=== PATIENT | male | born 1940 | race Caucasian/White ===

== ENCOUNTER 2016-11-28 20:51 | Inpatient (IN) | payer OTHER, MEDICARE ==
[~2016-11-28] VITALS: Ht 185.4 cm; Wt 81.4 kg
[~2016-11-28 20:51] MED LIST: ACETCAP PO; ADVA250A INH; ATOR20TA PO; DILT120C43 PO; DILT240C36 PO; METF500 PO; PRIL20CA PO; RIVA20 PO
[2016-11-28 20:56] VITALS: BP 138/76; PULSE 139; RESP 24; TEMP 97.7; O2SAT 91
[2016-11-28 21:54] VITALS: PULSE 118; RESP 22; O2SAT 96
[2016-11-28] MEDS ORDERED: SODIUM CHLORIDE 0.9% FLUSH 10 ML FLUSH IVF PRN (22:15)
[2016-11-28] MEDS ORDERED: methylPREDNISolone SOD SUCC 125 MG/2 ML VIAL IV PUSH ONE (22:15)
[2016-11-28] MEDS ORDERED: SODIUM CHLOR 0.9% 1000 ML INJ 1,000 ML IV ONE (22:15)
--- NOTE | 2016-11-28 22:23 | PD ---
HPI Chief Complaint: Respiratory Symptoms Time Seen by Provider: 22:04 Travel History International Travel<30 days: No Contact w/Intl Traveler<30days: No Traveled to known affect area: No History of Present Illness HPI Patient is a 76 year old male with history of atrial fibrillation, COPD, hx of esophageal cancer; presents to the ER with c/o of SOB. Patient reports that he has been feeling sob for the past 3-4 weeks. He see his control engineer last week , Dr. Milton Fajardo and was started on a course of steroids as well as Azithromycin. Patient reports that the steroids did help initially but since being off the steroids, he has been sob. Patient reports no fever/chills. Reports no chest pain but pain through his chest wall from coughing so much. Reports that when he coughs, he brings up thick white sputum. PFSH Past Medical History Cancer: Yes (TONSIL) Cardiovascular Problems: Yes (ATRIAL FIB) High Cholesterol: Yes COPD: Yes Diabetes: Yes (PRE DIABETIC) Endocrine: Yes GERD: Yes Gout: Yes Genitourinary: No Hepatitis: No Hiatal Hernia: No Immune Disorder: No Musculoskeletal: Yes (LOWER BACK) Neurologic: No Psychiatric: No Reproductive: No Respiratory: Yes (COPD, SCARRING IN LUNGS) Past Surgical History Abdominal Surgery: No AICD: No Body Medical Devices: LEFT HIP PIN Cardiac Surgery: No Ear Surgery: No Endocrine Surgery: No Eye Surgery: No Genitourinary Surgery: No Gynecologic Surgery: No Joint Replacement: No Oral Surgery: No Pacemaker: No Thoracic Surgery: No Social History Alcohol Use: Yes (5-6 OZ OF RUM AND COKE-DAILY AND 2-3 BEERS DAILY ) Tobacco Use: No (QUIT 30 YRS AGO , SMOKED 4 PPD FOR 25+YRS) Substance Use: No Allergies-Medications (Allergen,Severity, Reaction): Coded Allergies: Sulfa (Sulfonamide Antibiotics) (Unverified Allergy, Severe, Anaphylaxis, 11/28/16) Reported Meds & Prescriptions Reported Meds & Active Scripts Active Xarelto 20 Mg Tab (Rivaroxaban) 20 Mg Tab 20 Mg PO DAILY 30 Days Reported Xarelto (Rivaroxaban) 20 Mg Tab 20 Mg PO DAILY Prilosec (Omeprazole Magnesium) 20 Mg Tab DAILY Advair Diskus Inh (Fluticasone-Salmeterol Inh) 250-50 Mcg/Blist Aer 1 Puff INH BID Rinse mouth after use. Diltiazem CD 24 HR 240 Mg Caper 240 Mg PO AC BREAKFAST Diltiazem (Diltiazem HCl) 120 Mg Tab 120 Mg PO HS Dilt-Xr 120 mg (Diltiazem HCl) 120 Mg Cap 120 Mg PO HS Glucophage 500 mg (Metformin HCl) 500 Mg Tab 500 Mg PO HS Dilt-Xr 240 mg (Diltiazem HCl) 240 Mg Cap 240 Mg PO DAILY AM Atorvastatin 20 mg tab (Atorvastatin Calcium) 20 Mg Tab 20 Mg PO HS Advair Diskus 250/50 (Salmeterol Xinafoate/Fluticasone) 250 Mcg/50 Mcg Inhp 1 Puff INH BID Prilosec 20 mg (Omeprazole) 20 Mg Cap 20 Mg PO DAILY Review of Systems General / Constitutional: No: Fever, Chills Eyes: No: Visual changes HENT: No: Headaches Cardiovascular: No: Chest Pain or Discomfort Respiratory: Positive: Cough, Shortness of Breath, Wheezing Gastrointestinal: No: Abdominal Pain Genitourinary: No: Dysuria Musculoskeletal: No: Pain Skin: No Rash Neurologic: No: Weakness Psychiatric: No: Depression Endocrine: No: Polydipsia Hematologic/Lymphatic: No: Easy Bruising Physical Exam Narrative GENERAL: moderate distress SKIN: Focused skin assessment warm/dry. HEAD: Atraumatic. Normocephalic. EYES: Pupils equal and round. No scleral icterus. No injection or drainage. ENT: No nasal bleeding or discharge. Mucous membranes pink and moist. NECK: Trachea midline. No JVD. CARDIOVASCULAR: Tachycardia , No murmur appreciated. RESPIRATORY: increased accessory muscle use. Decreased breath sounds b/l. GASTROINTESTINAL: Abdomen soft, non-tender, nondistended. Hepatic and splenic margins not palpable. MUSCULOSKELETAL: No obvious deformities. No clubbing. No cyanosis. No edema. NEUROLOGICAL: Awake and alert. Normal speech. PSYCHIATRIC: Appropriate mood and affect; insight and judgment normal. Data Data Last Documented VS Vital Signs Date Time Temp Pulse Resp B/P (MAP) Pulse Ox O2 Delivery O2 Flow Rate FiO2 11/28/16 21:54 118 22 96 11/28/16 20:56 97.7 138/76 (96) Room Air Orders Orders Complete Blood Count With Diff (11/28/16 22:09) Comprehensive Metabolic Panel (11/28/16 22:09) B-Type Natriuretic Peptide (11/28/16 22:09) Act Partial Throm Time (Ptt) (11/28/16 22:09) Prothrombin Time / Inr (Pt) (11/28/16 22:09) Magnesium (Mg) (11/28/16 22:09) Ckmb (Isoenzyme) Profile (11/28/16 22:09) Troponin I (11/28/16 22:09) Urinalysis - C+S If Indicated (11/28/16 22:09) Influenzae A/B Antigen (11/28/16 22:09) Blood Culture (11/28/16 22:) Iv Access Insert/Monitor (11/28/16 22:09) Electrocardiogram (11/28/16:) Ecg Monitoring (11/28/16:) Oximetry (11/28/16:) Oxygen Administration (11/28/16 22:) Chest, Single Ap (11/28/16 22:09) Sodium Chloride 0.9% Flush (Ns Flush) (11/28/16 22:15) Methylprednisolone So Succ Inj (Solumedr (11/28/16 22:15) Albuterol-Ipratropium Neb (Duoneb Neb) (11/28/16 22:15) Lactic Acid Sepsis Protocol (11/28/16 22:09) Sodium Chlor 0.9% 1000 Ml Inj (Ns 1000 M (11/28/16 22:15) CKMB (11/28/16 22:45) CKMB% (11/28/16 22:45) Ceftriaxone Inj (Rocephin Inj) (11/28/16 23:30) Azithromycin Inj (Zithromax Inj) (11/28/16 23:30) Admit Order (Ed Use Only) (11/29/16 00:00) Labs Laboratory Tests Test 11/28/16 22:45 11/28/16 23:05 White Blood Count 17.6 TH/MM3 Red Blood Count 4.59 MIL/MM3 Hemoglobin 14.5 GM/DL Hematocrit 44.0 % Mean Corpuscular Volume 95.8 FL Mean Corpuscular Hemoglobin 31.5 PG Mean Corpuscular Hemoglobin Concent 32.9 % Red Cell Distribution Width 14.4 % Platelet Count 480 TH/MM3 Mean Platelet Volume 7.9 FL Neutrophils (%) (Auto) 86.8 % Lymphocytes (%) (Auto) 3.0 % Monocytes (%) (Auto) 10.2 % Eosinophils (%) (Auto) 0.0 % Basophils (%) (Auto) 0.0 % Neutrophils # (Auto) 15.3 TH/MM3 Lymphocytes # (Auto) 0.5 TH/MM3 Monocytes # (Auto) 1.8 TH/MM3 Eosinophils # (Auto) 0.0 TH/MM3 Basophils # (Auto) 0.0 TH/MM3 CBC Comment DIFF FINAL Differential Comment Prothrombin Time 13.0 SEC Prothromb Time International Ratio 1.2 RATIO Activated Partial Thromboplast Time 35.5 SEC Blood Urea Nitrogen 20 MG/DL Creatinine 0.85 MG/DL Random Glucose 136 MG/DL Total Protein 8.1 GM/DL Albumin 3.3 GM/DL Calcium Level 8.8 MG/DL Magnesium Level 1.6 MG/DL Alkaline Phosphatase 99 U/L Aspartate Amino Transf (AST/SGOT) 149 U/L Alanine Aminotransferase (ALT/SGPT) 286 U/L Total Bilirubin 0.3 MG/DL Sodium Level 137 MEQ/L Potassium Level 4.4 MEQ/L Chloride Level 102 MEQ/L Carbon Dioxide Level 28.5 MEQ/L Anion Gap 7 MEQ/L Estimat Glomerular Filtration Rate 88 ML/MIN Lactic Acid Level 1.7 mmol/L Total Creatine Kinase 258 U/L Creatine Kinase MB 11.3 NG/ML Troponin I LESS THAN 0.02 NG/ML B-Type Natriuretic Peptide 191 PG/ML MDM Medical Decision Making Medical Screen Exam Complete: Yes Emergency Medical Condition: Yes Medical Record Reviewed: Yes Interpretation(s) Vital Signs Date Time Temp Pulse Resp B/P (MAP) Pulse Ox O2 Delivery O2 Flow Rate FiO2 11/28/16 21:54 118 22 96 11/28/16 20:56 97.7 139 24 138/76 (96) 91 Room Air Differential Diagnosis Pneumonia, COPD exacerbation, viral syndrome, electrolyte abnormality,afib with rvr, acs, arrhythmia Narrative Course 76 year old male who presents to the ER for evaluation of cough/congestion with increased wheezing for the past 3-4 weeks. He has seen Dr. Fajardo in the office and was given a course of antibiotics as well as a course of steroids with no relief of symptoms. Patient tachycardic with increased RR. Patient was placed on a equipment monitor phototypesetting , IV was established. IV steroids as well as neb treatments ordered. Xray of chest ordered. Labs including lactate and blood cultures ordered. Vital Signs Date Time Temp Pulse Resp B/P (MAP) Pulse Ox O2 Delivery O2 Flow Rate FiO2 11/28/16 21:54 118 22 96 11/28/16 20:56 97.7 139 24 138/76 (96) 91 Room Air Laboratory Tests Test 11/28/16 22:45 11/28/16 23:05 White Blood Count 17.6 TH/MM3 (4.0-11.0) Red Blood Count 4.59 MIL/MM3 (4.50-5.90) Hemoglobin 14.5 GM/DL (13.0-17.0) Hematocrit 44.0 % (39.0-51.0) Mean Corpuscular Volume 95.8 FL (80.0-100.0) Mean Corpuscular Hemoglobin 31.5 PG (27.0-34.0) Mean Corpuscular Hemoglobin Concent 32.9 % (32.0-36.0) Red Cell Distribution Width 14.4 % (11.6-17.2) Platelet Count 480 TH/MM3 (150-450) Mean Platelet Volume 7.9 FL (7.0-11.0) Neutrophils (%) (Auto) 86.8 % (16.0-70.0) Lymphocytes (%) (Auto) 3.0 % (9.0-44.0) Monocytes (%) (Auto) 10.2 % (0.0-8.0) Eosinophils (%) (Auto) 0.0 % (0.0-4.0) Basophils (%) (Auto) 0.0 % (0.0-2.0) Neutrophils # (Auto) 15.3 TH/MM3 (1.8-7.7) Lymphocytes # (Auto) 0.5 TH/MM3 (1.0-4.8) Monocytes # (Auto) 1.8 TH/MM3 (0-0.9) Eosinophils # (Auto) 0.0 TH/MM3 (0-0.4) Basophils # (Auto) 0.0 TH/MM3 (0-0.2) CBC Comment DIFF FINAL Differential Comment Prothrombin Time 13.0 SEC (9.8-11.6) Prothromb Time International Ratio 1.2 RATIO Activated Partial Thromboplast Time 35.5 SEC (24.3-30.1) Blood Urea Nitrogen 20 MG/DL (7-18) Creatinine 0.85 MG/DL (0.60-1.30) Random Glucose 136 MG/DL (74-106) Total Protein 8.1 GM/DL (6.4-8.2) Albumin 3.3 GM/DL (3.4-5.0) Calcium Level 8.8 MG/DL (8.5-10.1) Magnesium Level 1.6 MG/DL (1.5-2.5) Alkaline Phosphatase 99 U/L (45-117) Aspartate Amino Transf (AST/SGOT) 149 U/L (15-37) Alanine Aminotransferase (ALT/SGPT) 286 U/L (12-78) Total Bilirubin 0.3 MG/DL (0.2-1.0) Sodium Level 137 MEQ/L (136-145) Potassium Level 4.4 MEQ/L (3.5-5.1) Chloride Level 102 MEQ/L (98-107) Carbon Dioxide Level 28.5 MEQ/L (21.0-32.0) Anion Gap 7 MEQ/L (5-15) Estimat Glomerular Filtration Rate 88 ML/MIN (>89) Lactic Acid Level 1.7 mmol/L (0.4-2.0) Total Creatine Kinase 258 U/L (39-308) Creatine Kinase MB 11.3 NG/ML (0.5-3.6) Troponin I LESS THAN 0.02 NG/ML B-Type Natriuretic Peptide 191 PG/ML (0-100) Last Impressions Chest X-Ray 11/28/16 9690 Signed Impressions: Service Date/Time: Monday, November 28, 2016 23:16 - CONCLUSION: Chronic parenchymal changes bilaterally with superimposed atelectasis and/or infiltrate left lower lobe. Rachele Solis MD Patient with LLL infiltrate - failed outpatient treatment. Patient with sepsis criteria, he has been pancultured. Patient will be admitted to the hospital Case reviewed with Dr. Lux who accepts pt to service Sepsis Criteria SIRS Criteria (2 or more): Heart rate over 90, RR > 20 or PaCO2 < 32, WBC > 99668, < 4000 or > 10% bands Criteria Outcome: Meets SIRS criteria, Meets sepsis criteria Diagnosis Primary Impression: Sepsis Additional Impression: Pneumonia Admitting Information Admitting Physician Requests: Admit Jessy Carbajal DO Nov 28, 2016 22:23
[2016-11-28] MEDS ORDERED: PRIL20TA2 (22:25)
[2016-11-28] MEDS ORDERED: DILT-64 PO (22:25)
[2016-11-28] MEDS ORDERED: XARE20TA PO (22:25)
[2016-11-28] MEDS ORDERED: DILT120T PO (22:25)
[2016-11-28] MEDS ORDERED: ADVA250A INH (22:25)
--- NOTE | 2016-11-28 22:34 | RADRPT ---
EXAM DATE/TIME: 11/28/2016 23:16 [facility] COMPARISON: CHEST SINGLE AP, April 28, 2013, 15:46. INDICATIONS : Short of breath. MEDICAL HISTORY : Chronic obstructive pulmonary disease. SURGICAL HISTORY : None. ENCOUNTER: Initial ACUITY: 1 day PAIN SCORE: 0/10 LOCATION: Bilateral chest FINDINGS: Moderate cardiomegaly is present. There are parenchymal changes in the right lung which have the appe arance of coarse interstitial process not changed since 2013. Parenchymal changes are present in the left lung most of it is chronic, however superimposed atelectasis and/or infiltrate is also suspected . There are pleural plaque calcifications adjacent to the left hemidiaphragm. CONCLUSION: Chronic parenchymal changes bilaterally with superimposed atelectasis and/or infiltrate left lower lo be. K. Cain Solis MD on November 28, 2016 at 22:32 Board Certified Radiologist. This report was verified electronically.
[2016-11-28] MEDS: RESP: ALBUTEROL 2.5 MG/IPRATROPIUM 0.5 MG NEB (SCH) INH (22:47)
[2016-11-28 23:05] LABS: AUTOMATED NEUTROPHIL # 15.3 TH/MM3 (1.8-7.7); HEMO FLAGS DIFF FINAL; LYMPHOCYTE # 0.5 TH/MM3 (1.0-4.8); MEAN CELL VOLUME 95.8 FL (80.0-100.0); MEAN CORPUSCULAR HEMOGLOBIN 31.5 PG (27.0-34.0); MEAN CORPUSCULAR HGB CONC 32.9 % (32.0-36.0); MONO % 10.2 % (0.0-8.0); NEUT % 86.8 % (16.0-70.0); PLATELET COUNT 480 TH/MM3 (150-450); RED BLOOD COUNT 4.59 MIL/MM3 (4.50-5.90); RED CELL DISTRIBUTION WIDTH 14.4 % (11.6-17.2); WHITE BLOOD COUNT 17.6 TH/MM3 (4.0-11.0)
[2016-11-28 23:13] LABS: APTT (PATIENT) 35.5 SEC (24.3-30.1); INTERNATIONAL NORMALIZED RATIO 1.2 RATIO
[2016-11-28 23:19] LABS: ALT (GPT) 286 U/L (12-78); ANION GAP 7 MEQ/L (5-15); AST (GOT) 149 U/L (15-37); BICARBONATE 28.5 MEQ/L (21.0-32.0); BLOOD UREA NITROGEN 20 MG/DL (7-18); CHLORIDE 102 MEQ/L (98-107); GLOMERULAR FILTRATION RATE 88 ML/MIN (>89); MAGNESIUM 1.6 MG/DL (1.5-2.5); POTASSIUM 4.4 MEQ/L (3.5-5.1); SODIUM (NA) 137 MEQ/L (136-145)
[2016-11-28 23:23] LABS: ALKALINE PHOSPHATASE 99 U/L (45-117); CREATINE KINASE 258 U/L (39-308); TOTAL BILIRUBIN ADULT 0.3 MG/DL (0.2-1.0)
[2016-11-28] MEDS ORDERED: cefTRIAXone INJ 1,000 MG in SODIUM CHLORIDE 0.9% INJ 100 ML IV ONE (23:30)
[2016-11-28] MEDS ORDERED: AZITHROMYCIN INJ 500 MG in SODIUM CHLOR 0.9% 250 ML INJ 250 ML IV ONE (23:30)
[2016-11-28 23:36] LABS: CKMB 11.3 NG/ML (0.5-3.6)
[2016-11-29] VITALS (11 sets, daily range): BP systolic 102–120; BP diastolic 66–84; PULSE 87–112; RESP 17–18; TEMP 97.1–98.9; O2SAT 92–97
[2016-11-29] MEDS ORDERED: NALOXONE HCL 0.4 MG/ML AMP IV PUSH PRN
[2016-11-29] MEDS ORDERED: SODIUM CHLORIDE 0.9% FLUSH 10 ML FLUSH IV FLUSH PRN
[2016-11-29] MEDS ORDERED: RESP: ALBUTEROL 2.5 MG/IPRATROPIUM 0.5 MG NEB (PRN) NEB
[2016-11-29 00:40] LABS: BLOOD, URINE NEG (NEG); COMMENT (UR) CULT NOT INDICATED; CULTURE IF INDICATED CULT NOT INDICATED; GLUCOSE,URINE NEG (NEG); KETONE, URINE NEG (NEG); MUCUS URINE FEW /lpf (OCC); NITRITE,URINE NEG (NEG); URINE COLOR YELLOW (YELLW/STRAW)
[2016-11-29] MEDS: RESP: ALBUTEROL 2.5 MG/IPRATROPIUM 0.5 MG NEB (SCH) NEB ×4 (03:03→22:11)
--- NOTE | 2016-11-29 03:43 | HHI.HP ---
HPI Service [facility] Primary Care Physician Camille Krause M.D. Admission Diagnosis Pneumonia - failed outpatient treatment Diagnoses: Travel History International Travel<30 Days: No Contact w/Intl Traveler <30 Da: No Traveled to Known Affected Are: No History of Present Illness hx from ER communication, patient and review of medical records 2 weeks ago, swallowed pill and choke and coughed so hard then got worse, got to lungs went to dr hess and started on antibiotics azithromycin with prednisone 5 days course got better only a little bit was told to come to er by his office initially did have fever a few days- prior to start of azithromycin - 102F hx of throat cancer - 2yrs ago ent doctor is dr garrett- did have barium swallow done and did not show much has a lot of chest pain, all over now worse with deep breath not reproducible Review of Systems Except as stated in HPI: all other systems reviewed are Neg Past Family Social History Past Medical History afib chronic anticoagulation on xarelto 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; sandblasting, 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 hx of throat cancer- on tonsils- s/p radiation and chemo almost 3 yrs ago Past Surgical History throat cancer biopsy left femur replacement 40yrs ago left wrist fx 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 ruptured right inguinal hernia repair Allergies: Coded Allergies: Sulfa (Sulfonamide Antibiotics) (Unverified Allergy, Severe, Anaphylaxis, 11/28/16) Family History no family hx that he could remember both parents- heart failure Social History used to smoke, quit 40yrs ago used to drink etoh about 3-4 cocktails and a couple of beers a day- states he quit about 10 days ago never had alcohol withdrawal before no drugs live at home with of 55 yrs, still drives, still working Physical Exam Vital Signs Vital Signs Date Time Temp Pulse Resp B/P (MAP) Pulse Ox O2 Delivery O2 Flow Rate FiO2 11/29/16 02:00 98.9 110 18 102/69 (80) 95 11/29/16 00:47 11/29/16 00:47 95 Nasal Cannula 2.00 11/29/16 00:06 95 11/28/16 21:54 118 22 96 11/28/16 20:56 97.7 139 24 138/76 (96) 91 Room Air Physical Exam GENERAL: This is a well-nourished, well-developed patient, in no apparent distress. SKIN: No rashes, ecchymoses or lesions. Cool and dry. HEAD: Atraumatic. Normocephalic. No temporal or scalp tenderness. EYES: . No scleral icterus. No injection or drainage. ENT: Nose without bleeding, purulent drainage or septal hematoma. Airway patent. NECK: Trachea midline. No JVD Supple, nontender, no meningeal signs. CARDIOVASCULAR: Regular rate and rhythm without murmurs, gallops, or rubs. RESPIRATORY: Clear to auscultation. Breath sounds equal bilaterally. No wheezes , rales, or rhonchi. GASTROINTESTINAL: Abdomen soft, non-tender, nondistended. No guarding. MUSCULOSKELETAL: no calf asymmetry or edema, NEUROLOGICAL: Awake and alert. Motor and sensory grossly within normal limits. Normal speech. Laboratory Laboratory Tests Test 11/28/16 22:45 11/28/16 23:05 White Blood Count 17.6 Red Blood Count 4.59 Hemoglobin 14.5 Hematocrit 44.0 Mean Corpuscular Volume 95.8 Mean Corpuscular Hemoglobin 31.5 Mean Corpuscular Hemoglobin Concent 32.9 Red Cell Distribution Width 14.4 Platelet Count 480 Mean Platelet Volume 7.9 Neutrophils (%) (Auto) 86.8 Lymphocytes (%) (Auto) 3.0 Monocytes (%) (Auto) 10.2 Eosinophils (%) (Auto) 0.0 Basophils (%) (Auto) 0.0 Neutrophils # (Auto) 15.3 Lymphocytes # (Auto) 0.5 Monocytes # (Auto) 1.8 Eosinophils # (Auto) 0.0 Basophils # (Auto) 0.0 CBC Comment DIFF FINAL Differential Comment Prothrombin Time 13.0 Prothromb Time International Ratio 1.2 Activated Partial Thromboplast Time 35.5 Blood Urea Nitrogen 20 Creatinine 0.85 Random Glucose 136 Total Protein 8.1 Albumin 3.3 Calcium Level 8.8 Magnesium Level 1.6 Alkaline Phosphatase 99 Aspartate Amino Transf (AST/SGOT) 149 Alanine Aminotransferase (ALT/SGPT) 286 Total Bilirubin 0.3 Sodium Level 137 Potassium Level 4.4 Chloride Level 102 Carbon Dioxide Level 28.5 Anion Gap 7 Estimat Glomerular Filtration Rate 88 Lactic Acid Level 1.7 Total Creatine Kinase 258 Creatine Kinase MB 11.3 Troponin I LESS THAN 0.02 B-Type Natriuretic Peptide 191 Urine Color YELLOW Urine Turbidity HAZY Urine pH 6.0 Urine Specific [place] 1.016 Urine Protein NEG Urine Glucose (UA) NEG Urine Ketones NEG Urine Occult Blood NEG Urine Nitrite NEG Urine Bilirubin NEG Urine Urobilinogen LESS THAN 2.0 Urine Leukocyte Esterase NEG Urine RBC LESS THAN 1 Urine WBC 2 Urine Mucus FEW Microscopic Urinalysis Comment CULT NOT INDICATED Date/Time Source Procedure Growth Status 11/28/16 23:00 Blood Peripheral Aerobic Blood Culture Pending Received 11/28/16 23:00 Blood Peripheral Anaerobic Blood Culture Pending Received 11/28/16 22:45 Nasal Aspirate Influenza Types A,B Antigen (WILLOW) - Final NEGATIVE FOR FLU A AND B ANTIGEN.... Complete Result Diagram: 11/28/16224411/28/162244 Imaging Last 48 hours Impressions Chest X-Ray 11/28/162208 Signed Impressions: Service Date/Time: Monday, November 28, 2016 23:16 - CONCLUSION: Chronic parenchymal changes bilaterally with superimposed atelectasis and/or infiltrate left lower lobe. Rachele Solis MD Caprini VTE Risk Assessment Caprini VTE Risk Assessment: Mod/High Risk (score >= 2) Caprini Risk Assessment Model Point Value = 1 Point Value = 2 Point Value = 3 Point Value = 5 Age 41-60 Minor surgery BMI > 25 kg/m2 Swollen legs Varicose veins or History of unexplained or recurrent spontaneous Oral contraceptives or hormone replacement Sepsis (< 1 month) Serious lung disease, including pneumonia (< 1 month) Abnormal pulmonary function Acute myocardial infarction Congestive heart failure (< 1 month) History of inflammatory bowel disease Medical patient at bed rest Age 61-74 Arthroscopic surgery Major open surgery (> 45 min) Laparoscopic surgery (> 45 min) Malignancy Confined to bed (> 72 hours) Immobilizing plaster cast Central venous access Age >= 75 History of VTE Family history of VTE Factor V Leiden Prothrombin [id number] Lupus anticoagulant Anticardiolipin antibodies Elevated serum homocysteine Heparin-induced thrombocytopenia Other congenital or acquired thrombophilia Stroke (< 1 month) Elective arthroplasty Hip, pelvis, or leg fracture Acute spinal cord injury (< 1 month) Prophylaxis Regimen Total Risk Factor Score Risk Level Prophylaxis Regimen 0-1 Low Early ambulation 2 Moderate Order ONE of the following: *Sequential Compression Device (SCD) *Heparin 5000 units SQ BID 3-4 Higher Order ONE of the following medications: *Heparin 5000 units SQ TID *Enoxaparin/Lovenox 40 mg SQ daily (WT < 150 kg, CrCl > 30 mL/min) *Enoxaparin/Lovenox 30 mg SQ daily (WT < 150 kg, CrCl > 10-29 mL/min) *Enoxaparin/Lovenox 30 mg SQ BID (WT < 150 kg, CrCl > 30 mL/min) AND/OR *Sequential Compression Device (SCD) 5 or more Highest Order ONE of the following medications: *Heparin 5000 units SQ TID (Preferred with Epidurals) *Enoxaparin/Lovenox 40 mg SQ daily (WT < 150 kg, CrCl > 30 mL/min) *Enoxaparin/Lovenox 30 mg SQ daily (WT < 150 kg, CrCl > 10-29 mL/min) *Enoxaparin/Lovenox 30 mg SQ BID (WT < 150 kg, CrCl > 30 mL/min) AND *Sequential Compression Device (SCD) Assessment and Plan Assessment and Plan Impression: pneumonia- failed outpatient with azithromycin acute copd exacerbation chest pain- peluritic , musculskeltal afib chronic anticoagulation on xarelto 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 Nebulizers scheduled and when necessary. Continue steroids at 40 mg IV every 6 hours. PPI while on steroids. Patient received Rocephin and azithromycin in ER. Will switch to levofloxacin 750 mg IV daily DVT prophylaxis with Xarelto. Resume rest of his home meds. Discussed Condition With patient, ER MD, nursing staff Physician Certification 2 Midnight Certification Type: Admission for Inpatient Services Order for Inpatient Services The services are ordered in accordance with Medicare regulations or non- Medicare payer requirements, as applicable. In the case of services not specified as inpatient-only, they are appropriately provided as inpatient services in accordance with the 2-midnight benchmark. Estimated LOS (days): 3 days is the estimated time the patient will need to remain in the hospital, assuming treatment plan goals are met and no additional complications. Post-Hospital Plan: Home Oung,Twethida MD Nov 29, 2016 03:43
[2016-11-29] MEDS: methylPREDNISolone SOD SUCC 40 MG/1 ML VIAL IV PUSH SCH ×3 (06:38→17:43)
[2016-11-29] MEDS: DILTIAZEM-CD 240 MG CAP ER PO SCH (06:38)
[2016-11-29] MEDS ORDERED: GLUCAGON 1 MG/ML VIAL OTHER PRN (08:15)
[2016-11-29] MEDS ORDERED: DEXTROSE 50% IN WATER 50 ML VIAL(D50) IV PUSH PRN (08:15)
[2016-11-29] MEDS: SODIUM CHLORIDE 0.9% FLUSH 10 ML FLUSH IV FLUSH SCH ×2 (08:49→22:00)
[2016-11-29] MEDS: PANTOPRAZOLE SOD 40 MG DELAYED RELEASE TAB PO SCH (08:51)
[2016-11-29] MEDS: LEVOFLOXACIN 750 MG PREMIX INJ 150 ML IV SCH (08:51)
--- NOTE | 2016-11-29 09:18 | MB ---
cc: MIREYA GOMES M.D. DATE OF CONSULTATION 11/29/2016 REASON FOR CONSULTATION Pneumonia. COPD. HISTORY OF PRESENT ILLNESS Mr. Pickering is a 76-year-old male with known history of COPD, atrial fibrillation, history of esophageal cancer. He presents to the emergency room with increasing shortness of breath, vague, generalized chest discomfort which he tells me has improved since he had come to the emergency room. His shortness of breath has improved as well at present. He denies history of fever or chills, has a cough with a small amount of whitish-yellow sputum. No hemoptysis. No TB. No previous industrial exposure. PAST MEDICAL HISTORY 1. COPD. 2. Esophageal cancer. 3. Atrial fibrillation. 4. Acid reflux. 5. Diabetes mellitus. MEDICATIONS AT HOME 1. Xarelto. 2. Prilosec. 3. Advair. 4. Diltiazem. 5. Glucophage. 6. Atorvastatin. ALLERGIES SULFA DRUGS. SOCIAL HISTORY Remote smoking history; has not smoked for 30 years but he did smoke four packs a day for 25. Drinks alcohol socially. FAMILY HISTORY Noncontributory. REVIEW OF SYSTEMS A 12-point review of systems as per HPI and past history, otherwise negative. PHYSICAL EXAMINATION GENERAL: The patient is alert. VITAL SIGNS: His temperature is 98 degrees Fahrenheit, pulse 94, respirations 18, blood pressure 120/80. HEENT: Exam unremarkable. Eyes without icterus. NECK: Without adenopathy or thyroid enlargement. CHEST: A few scattered rhonchi at bases. CARDIAC EXAM: PMI not appreciated. S1-S2 audible. No murmur, no rub. ABDOMEN: Lax. Bowel sounds audible. EXTREMITIES: No clubbing, cyanosis or edema. LABORATORY DATA White count 17,000, hemoglobin 14, hematocrit 44. Sodium 137, potassium 4.4. INR 1.2. CHEST X-RAY Chronic changes bilaterally, atelectasis and/or infiltrate left lower lung. IMPRESSION 1. COPD exacerbation. 2. Left lower lobe pneumonia. 3. Atrial fibrillation, controlled. 4. Esophageal cancer. Swallow evaluation pending. 5. Glucose intolerance. PLAN The patient to be maintained on bronchodilator therapy, antibiotic therapy for his underlying pneumonitis. Chest x-ray will be followed. The patient has been seen by Dr. Milton Fajardo in the past. We will ask him to follow his care. I do thank you for asking me to partake in Mr. Pickering' care. Sincerely, Mireya Gomes MD WWW/AUSTYN /8:56 AM /9:04 AM
[2016-11-29 10:07] LABS: CREATINE KINASE 181 U/L (39-308)
[2016-11-29 10:22] LABS: CKMB 8.1 NG/ML (0.5-3.6)
--- NOTE | 2016-11-29 10:23 | PD.CONS ---
HPI History of Present Illness This is a 76 year old male with a history of tonsillar cancer, emphysema, COPD, and pulmonary fibrosis. He was diagnosed in January 2014 by biopsy of the tonsils, which revealed invasive poorly differentiated squamous cell carcinoma, clinically right tonsil. He underwent chemotherapy and radiation and completed treatment in about 3 years ago. Since completing his radiation, he has had intermittent difficulty with solids becoming lodged in his upper esophagus. Usually this happens with pills or a dry meat bolus. He can usually drink fluids to get the food bolus to pass. About 2 weeks ago he was taking a large pill and this became lodged in his lower esophagus. He reports that he was unable to pass the pill and was coughing and bringing up a large amount of phlegm. He apparently aspirated and went to his manager lpn, who placed him on azithromycin and a five-day course of prednisone. He reports that he continued to have discomfort in his lower esophagus and felt that the pill was still lodged. He has not been able to take much in the way of oral intake and has lost 10 lbs over the past week. He denies any heartburn nausea or vomiting. He denies any abdominal pain. He states that he is followed by Dr. Klein and he did undergo a barium swallow as an outpatient at [facility]. The patient reports that this was unremarkable. He was scheduled to meet with Dr. Klein today to discuss possible EGD, but was still having significant discomfort and felt as though he was not able to take a deep breath and therefore he came to the emergency room for evaluation. Of note he has atrial fibrillation and takes Xarelto and last took this study p.m. last night. 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 Repair of ruptured right inguinal hernia Coded Allergies: Sulfa (Sulfonamide Antibiotics) (Unverified Allergy, Severe, Anaphylaxis, 11/28/16) Medications Allergies Coded Allergies Type Severity Reaction Last Updated Verified Sulfa (Sulfonamide Antibiotics) Allergy Severe Anaphylaxis 11/28/16 No Active Scripts Medications Dose Route/Sig Max Daily Dose Days Date Category Dose Instructions Xarelto (Rivaroxaban) 20 Mg Tab 20 Mg PO DAILY 11/28/16 Reported Prilosec (Omeprazole Magnesium) 20 Mg Tab DAILY 11/28/16 Reported Advair Diskus Inh (Fluticasone-Salmeterol Inh) 250-50 Mcg/Blist Aer 1 Puff INH BID 11/28/16 Reported Rinse mouth after use. Diltiazem CD 24 HR 240 Mg Caper 240 Mg PO AC BREAKFAST 11/28/16 Reported Diltiazem (Diltiazem HCl) 120 Mg Tab 120 Mg PO HS 11/28/16 Reported Family History Denies any family history of esophageal, gastric, colorectal cancer Social History Quit smoking 30 years ago. Prior to that, smoked 3 packs of cigarettes per day 20 years Quit drinking alcohol about 10-15 days ago. Prior to that he was drinking 2-3 cocktails and 2 beers daily No illicit drug use Review of Systems Constitutional: COMPLAINS OF: Weight loss, DENIES: Fatigue, Fever, Chills Respiratory: COMPLAINS OF: Cough, Shortness of breath Cardiovascular: COMPLAINS OF: Chest pain Gastrointestinal: COMPLAINS OF: Difficulty Swallowing, Anorexia, Odynophagia, DENIES: Abdominal pain, Black stools, Bloody stools, Constipation, Diarrhea Musculoskeletal: DENIES: Joint pain Integumentary: DENIES: Abnormal pigmentation Hematologic/lymphatic: DENIES: Bruising Neurologic: DENIES: Headache Psychiatric: DENIES: Confusion GI Exam Vitals I&O Vital Signs Date Time Temp Pulse Resp B/P (MAP) Pulse Ox O2 Delivery O2 Flow Rate FiO2 11/29/16 08:34 97.6 107 18 120/80 (93) 92 11/29/16 04:11 98 11/29/16 04:00 97.1 112 18 116/84 (95) 95 11/29/16 02:00 98.9 110 18 102/69 (80) 95 11/29/16 00:47 11/29/16 00:47 95 Nasal Cannula 2.00 11/29/16 00:06 95 11/28/16 21:54 118 22 96 11/28/16 20:56 97.7 139 24 138/76 (96) 91 Room Air I/O 11/28/16 11/28/16 11/28/16 11/29/16 11/29/16 11/29/16 07:00 15:00 23:00 07:00 15:00 23:00 Intake Total 53 ml Balance 53 ml Intake IV Total 53 ml # Voids 1 Imaging Last Impressions Chest X-Ray 11/28/16 3670 Signed Impressions: Service Date/Time: Monday, November 28, 2016 23:16 - CONCLUSION: Chronic parenchymal changes bilaterally with superimposed atelectasis and/or infiltrate left lower lobe. Rachele Solis MD Laboratory Test 11/28/16 22:45 11/28/16 23:05 11/29/16 09:14 White Blood Count 17.6 TH/MM3 Red Blood Count 4.59 MIL/MM3 Hemoglobin 14.5 GM/DL Hematocrit 44.0 % Mean Corpuscular Volume 95.8 FL Mean Corpuscular Hemoglobin 31.5 PG Mean Corpuscular Hemoglobin Concent 32.9 % Red Cell Distribution Width 14.4 % Platelet Count 480 TH/MM3 Mean Platelet Volume 7.9 FL Neutrophils (%) (Auto) 86.8 % Lymphocytes (%) (Auto) 3.0 % Monocytes (%) (Auto) 10.2 % Eosinophils (%) (Auto) 0.0 % Basophils (%) (Auto) 0.0 % Neutrophils # (Auto) 15.3 TH/MM3 Lymphocytes # (Auto) 0.5 TH/MM3 Monocytes # (Auto) 1.8 TH/MM3 Eosinophils # (Auto) 0.0 TH/MM3 Basophils # (Auto) 0.0 TH/MM3 CBC Comment DIFF FINAL Differential Comment Prothrombin Time 13.0 SEC Prothromb Time International Ratio 1.2 RATIO Activated Partial Thromboplast Time 35.5 SEC Blood Urea Nitrogen 20 MG/DL Creatinine 0.85 MG/DL Random Glucose 136 MG/DL Total Protein 8.1 GM/DL Albumin 3.3 GM/DL Calcium Level 8.8 MG/DL Magnesium Level 1.6 MG/DL Alkaline Phosphatase 99 U/L Aspartate Amino Transf (AST/SGOT) 149 U/L Alanine Aminotransferase (ALT/SGPT) 286 U/L Total Bilirubin 0.3 MG/DL Sodium Level 137 MEQ/L Potassium Level 4.4 MEQ/L Chloride Level 102 MEQ/L Carbon Dioxide Level 28.5 MEQ/L Anion Gap 7 MEQ/L Estimat Glomerular Filtration Rate 88 ML/MIN Lactic Acid Level 1.7 mmol/L Total Creatine Kinase 258 U/L Creatine Kinase MB 11.3 NG/ML Troponin I LESS THAN 0.02 NG/ML B-Type Natriuretic Peptide 191 PG/ML Urine Color YELLOW Urine Turbidity HAZY Urine pH 6.0 Urine Specific [place] 1.016 Urine Protein NEG mg/dL Urine Glucose (UA) NEG mg/dL Urine Ketones NEG mg/dL Urine Occult Blood NEG Urine Nitrite NEG Urine Bilirubin NEG Urine Urobilinogen LESS THAN 2.0 MG/DL Urine Leukocyte Esterase NEG Urine RBC LESS THAN 1 /hpf Urine WBC 2 /hpf Urine Mucus FEW /lpf Microscopic Urinalysis Comment CULT NOT INDICATED Date/Time Source Procedure Growth Status 11/28/16 23:00 Blood Peripheral Aerobic Blood Culture Pending Received 11/28/16 23:00 Blood Peripheral Anaerobic Blood Culture Pending Received 11/28/16 22:45 Nasal Aspirate Influenza Types A,B Antigen (WILLOW) - Final NEGATIVE FOR FLU A AND B ANTIGEN.... Complete Physical Examination HEENT: Normocephalic; atraumatic; no jaundice. CHEST: Resp. even/unlabored, diminished CARDIAC: Irregular ABDOMEN: Soft, nondistended, nontender; no hepatosplenomegaly; bowel sounds are present in all four quadrants. EXTREMITIES: No clubbing, cyanosis, or edema. SKIN: Normal; no rash; no jaundice. CLINICAL WRITER: No focal deficits; alert and oriented times three. Assessment and Plan Plan ASSESSMENT: - Dysphagia in patient with hx of tonsillar cancer, s/p chemo/radiation 3 years ago. He has had intermittent issues with solids/pills (not liquids) getting caught in upper esophagus and had a pill lodge in his lower esophagus about 2 weeks ago. He had an outpatient barium enema and states that it was unremarkable. He had an appointment to be seen by Dr. Klein today, but was having significant odynophagia and has not been able to eat for the past week and therefore came to the hospital. On Xarelto and last had this 11/28 at 8pm. PPI. - Atrial fibrillation, on Xarelto. Last took 11/28. - Leukocytosis. Of note, has been on steroids at home, but also with questionable LLL infiltrate. Levaquin/Unasyn - Questionable left lower lobe infiltrate, COPD, Emphysema, Pulmonary fibrosis. Levaquin, Unasyn, Solumedrol, Nebs. Pulmonary following - Hx Tonsillar cancer. Dx 01/18 with bx--->invasive poorly differentiated squamous cell carcinoma, clinically right tonsil. S/P chemotherapy and radiation and completed treatment in about 3 years ago. Followed by Dr. Klein. PLAN: - Plan for EGD plus or minus dilatation on Sunday - Obtain consents - Nothing by mouth after night night - Continued PPI - Old Xarelto - Lovenox 80 mg subcutaneous twice a day, hold after night night - Abx per pulmonology - Supportive care - Further recommendations to follow based on results of above - Pt seen and examined by Dr. Orozco and myself and this note is written on his behalf Agnes Kyle Nov 29, 2016 10:23
[2016-11-29] MEDS ORDERED: guaiFENesin/CODEINE SYRUP 200 MG/20 MG/10 ML CUP PO PRN (11:00)
[2016-11-29 11:42] LABS: ALKALINE PHOSPHATASE 81 U/L (45-117); ALT (GPT) 222 U/L (12-78); ANION GAP 12 MEQ/L (5-15); AST (GOT) 94 U/L (15-37); BICARBONATE 23.3 MEQ/L (21.0-32.0); BLOOD UREA NITROGEN 17 MG/DL (7-18); CHLORIDE 101 MEQ/L (98-107); FREE T4 0.97 NG/DL (0.76-1.46); GLOMERULAR FILTRATION RATE 76 ML/MIN (>89); POTASSIUM 4.3 MEQ/L (3.5-5.1); SODIUM (NA) 136 MEQ/L (136-145); TOTAL BILIRUBIN ADULT 0.2 MG/DL (0.2-1.0)
[2016-11-29] MEDS: INSULIN ASPART SUPPLEMENTAL SCALE SQ SCH ×3 (12:00→21:00)
[2016-11-29] MEDS: metroNIDAZOLE 500 MG INJ 100 ML IV SCH (14:03)
[2016-11-29] MEDS: BUDESONIDE-FORMOTEROL 160/4.5 MCG INHALER INH SCH ×2 (14:03→21:00)
[2016-11-29 14:45] LABS: CREATINE KINASE 184 U/L (39-308)
[2016-11-29 14:57] LABS: CKMB 8.7 NG/ML (0.5-3.6)
[2016-11-29] MEDS ORDERED: RIVAROXABAN 20 MG TAB PO SCH (17:00)
[2016-11-29] MEDS: ENOXAPARIN SODIUM 80 MG/0.8 ML SYRINGE SQ SCH (17:00)
[2016-11-29 19:36] LABS: HEMOGLOBIN A1a 1.2 %; HEMOGLOBIN A1b 1.7 %; HEMOGLOBIN Ao 83.6 %; HEMOGLOBIN LA1C 2.5 %; HEMOGLOBIN P3 5.8 %
[2016-11-29] MEDS ORDERED: ATORVASTATIN 20 MG TAB PO SCH (21:00)
--- NOTE | 2016-11-29 21:21 | EKG ---
Date Performed: 11/29/2016 Time Performed: 00:59:29 PTAGE: 76 years EKG: ATRIAL FIBRILLATION WITH RAPID VENTRICULAR RESPONSE INDETERMINATE AXIS INCOMPLETE RIGHT BUN DLE BRANCH BLOCK ABNORMAL ECG PREVIOUS TRACING : 01/12/2015 08.52 Compared to the previous tracing rate faster DOCTOR: Minnie Chavarria Interpretating Date/Time 11/29/2016 21:20:21
[2016-11-29] MEDS: DILTIAZEM HCL 60 MG TAB PO SCH (22:00)
[2016-11-30] VITALS (7 sets, daily range): BP systolic 94–111; BP diastolic 63–73; PULSE 88–101; RESP 17–18; TEMP 97.4–98.9; O2SAT 93–98
[2016-11-30] MEDS: metroNIDAZOLE 500 MG INJ 100 ML IV SCH ×2 (00:40→14:37)
[2016-11-30] MEDS: RESP: ALBUTEROL 2.5 MG/IPRATROPIUM 0.5 MG NEB (SCH) NEB ×4 (04:00→21:37)
[2016-11-30] MEDS: methylPREDNISolone SOD SUCC 40 MG/1 ML VIAL IV PUSH SCH ×4 (06:00→17:04)
[2016-11-30] MEDS: ENOXAPARIN SODIUM 80 MG/0.8 ML SYRINGE SQ SCH ×2 (06:45→16:58)
[2016-11-30] MEDS: DILTIAZEM-CD 240 MG CAP ER PO SCH (06:47)
[2016-11-30] MEDS: INSULIN ASPART SUPPLEMENTAL SCALE SQ SCH ×4 (08:00→21:00)
[2016-11-30] MEDS: BUDESONIDE-FORMOTEROL 160/4.5 MCG INHALER INH SCH ×2 (08:04→20:34)
[2016-11-30] MEDS: LEVOFLOXACIN 750 MG PREMIX INJ 150 ML IV SCH (08:04)
[2016-11-30] MEDS: SODIUM CHLORIDE 0.9% FLUSH 10 ML FLUSH IV FLUSH SCH ×2 (08:05→20:44)
[2016-11-30] MEDS: PANTOPRAZOLE SOD 40 MG DELAYED RELEASE TAB PO SCH (08:05)
--- NOTE | 2016-11-30 10:23 | RADRPT ---
EXAM DATE/TIME: 11/29/2016 00:00 [facility] COMPARISON: No previous studies available for comparison. INDICATIONS : Dysphagia. FLUORO TIME: 2.3 minutes IMAGE COUNT: 0 CONTRAST: Dose as prescribed by speech pathologist. MEDICAL HISTORY : Chronic obstructive pulmonary disease. Gastroesophageal reflux disease. throat cancer, radiation to tonsils, afib SURGICAL HISTORY : None. ENCOUNTER: Initial ACUITY: >1 year PAIN SCORE: 0/10 LOCATION: esophagus FINDINGS: A modified barium swallow was performed with speech pathology. Patient was given a variety of liquids to swallow. CONCLUSION: Airway penetration demonstrated with multiple consistencies. For a full detailed repo rt, see report by the speech pathologist. Leonel Summers MD on November 30, 2016 at 10:21 Board Certified Radiologist. This report was verified electronically.
--- NOTE | 2016-11-30 11:30 | HHI.PR ---
Subjective Remarks Follow up dysphagia, pneumonia. Patient states that he is going home today and having EGD with dilatation as outpatient. Denies chest pain, dyspnea, cough. Objective Vitals Vital Signs Date Time Temp Pulse Resp B/P (MAP) Pulse Ox O2 Delivery O2 Flow Rate FiO2 11/30/16 08:14 Room Air 11/30/16 08:13 97.9 95 18 105/64 (78) 93 11/30/16 05:18 98.3 97 17 96/63 (74) 96 11/30/16 03:35 88 11/30/16 00:44 98.9 95 17 94/63 (73) 96 11/29/16 20:06 Nasal Cannula 2.00 11/29/16 20:05 98.0 87 17 105/73 (84) 96 11/29/16 17:52 111 11/29/16 16:50 97.5 100 18 108/66 (80) 97 11/29/16 16:31 93 21 11/29/16 12:56 97.2 106 18 109/66 (80) 94 I/O 11/29/16 11/29/16 11/29/16 11/30/16 11/30/16 11/30/16 07:00 15:00 23:00 07:00 15:00 23:00 Intake Total 53 ml 240 ml 480 ml Balance 53 ml 240 ml 480 ml Intake Oral 240 ml 480 ml IV Total 53 ml # Voids 1 3 3 Result Diagram: 11/28/16 2245 11/29/16 0914 Imaging Last Impressions Modified Barium Swallow 11/29/16 0000 Signed Impressions: Service Date/Time: Tuesday, November 29, 2016 00:00 - CONCLUSION: Airway penetration demonstrated with multiple consistencies. For a full detailed report, see report by the speech pathologist. Leonel Summers MD Chest X-Ray 11/28/162208 Signed Impressions: Service Date/Time: Monday, November 28, 2016 23:16 - CONCLUSION: Chronic parenchymal changes bilaterally with superimposed atelectasis and/or infiltrate left lower lobe. Rachele Solis MD Objective Remarks General: Elderly male in no acute distress. Heart: Regular rate and rhythm. No murmur. Lungs: Rhonchi noted in both bases, left greater than right. Breathing is nonlabored. Abdomen: Soft, nontender, nondistended. Extremities: No lower extremity edema. Psych: Alert and oriented. Procedures none Urinary Catheter: No Vascular Central Line Catheter: No A/P Problem List: (1) COPD exacerbation ICD Code: J44.1 - Chronic obstructive pulmonary disease with (acute) exacerbation (2) Atrial fibrillation ICD Code: I48.91 - Unspecified atrial fibrillation (3) Hypertension ICD Code: I10 - Essential (primary) hypertension (4) Pneumonia ICD Code: J18.9 - Pneumonia, unspecified organism Status: Acute Assessment and Plan 1. Pneumonia, failed outpatient therapy: Likely aspiration given patient's dysphagia. Continue antibiotics IV. Appreciate pulmonology recommendations. 2. COPD exacerbation: Continue steroids, breathing treatments, oxygen, antibiotics. 3. Chest pain: Pleuritic, likely musculoskeletal. 4. Atrial fibrillation: Chronic. On chronic anticoagulation with Xarelto. This is on hold for GI procedure. 5. Hypertension: 6. History of throat cancer: Status post radiation, chemotherapy 3 years ago. 7. GI prophylaxis: PPI while on steroids. 8. Dysphagia: Appreciate GI recommendations. Planning for EGD with possible dilatation. 9. DVT prophylaxis: Lovenox. Resume Xarelto following GI procedure. Discharge Planning The patient states that he wants to go home today. He states that he will be getting the EGD done as an outpatient. I have discussed at length with the patient my recommendation that he remain in the hospital for treatment of pneumonia with IV antibiotics. He is aware that if he chooses to leave today he will have to sign out AGAINST MEDICAL ADVICE. The risks of doing so have been explained to him extensively. Eric Acosta MD Nov 30, 2016 11:30
--- NOTE | 2016-11-30 13:40 | HHI.GIFU ---
Subjective Remarks Sitting up in chair. Pt was upset and requesting to have EGD with dilatation as outpatient. Pt has [employer] insurance which requires referrals from primary care. Explained to patient that this could be done as an outpatient, but it takes time and he would have to go back on his Xarelto and then repeat the process of holding anticoagulation/having lovenox injections before the procedure and therefore, we recommend that he stay and have procedure tomorrow morning. He is now agreeable to this. Objective Vitals I&O Vital Signs Date Time Temp Pulse Resp B/P (MAP) Pulse Ox O2 Delivery O2 Flow Rate FiO2 11/30/16 08:14 Room Air 11/30/16 08:13 97.9 95 18 105/64 (78) 93 11/30/16 05:18 98.3 97 17 96/63 (74) 96 11/30/16 03:35 88 11/30/16 00:44 98.9 95 17 94/63 (73) 96 11/29/16 20:06 Nasal Cannula 2.00 11/29/16 20:05 98.0 87 17 105/73 (84) 96 11/29/16 17:52 111 11/29/16 16:50 97.5 100 18 108/66 (80) 97 11/29/16 16:31 93 21 I/O 11/29/16 11/29/16 11/29/16 11/30/16 11/30/16 11/30/16 07:00 15:00 23:00 07:00 15:00 23:00 Intake Total 53 ml 240 ml 480 ml Balance 53 ml 240 ml 480 ml Intake Oral 240 ml 480 ml IV Total 53 ml # Voids 1 3 3 Laboratory Date/Time Source Procedure Growth Status 11/28/16 23:00 Blood Peripheral Aerobic Blood Culture - Preliminary NO GROWTH IN 2 DAYS Resulted 11/28/16 23:00 Blood Peripheral Anaerobic Blood Culture - Preliminary NO GROWTH IN 2 DAYS Resulted 11/28/16 22:45 Nasal Aspirate Influenza Types A,B Antigen (WILLOW) - Final NEGATIVE FOR FLU A AND B ANTIGEN.... Complete Imaging Last Impressions Modified Barium Swallow 11/29/16 0000 Signed Impressions: Service Date/Time: Tuesday, November 29, 2016 00:00 - CONCLUSION: Airway penetration demonstrated with multiple consistencies. For a full detailed report, see report by the speech pathologist. Leonel Summers MD Chest X-Ray 11/28/16 4426 Signed Impressions: Service Date/Time: Monday, November 28, 2016 23:16 - CONCLUSION: Chronic parenchymal changes bilaterally with superimposed atelectasis and/or infiltrate left lower lobe. Rachele Solis MD Physical Exam HEENT: Normocephalic; atraumatic; no jaundice. CHEST: CTA CARDIAC: RRR ABDOMEN: Soft, nondistended, nontender; no hepatosplenomegaly; bowel sounds are present in all four quadrants. EXTREMITIES: No clubbing, cyanosis, or edema. SKIN: Normal; no rash; no jaundice. LAND LAW EXAMINER: No focal deficits; alert and oriented times three. Assessment and Plan Plan ASSESSMENT: - Dysphagia in patient with hx of tonsillar cancer, s/p chemo/radiation 3 years ago. He has had intermittent issues with solids/pills (not liquids) getting caught in upper esophagus and had a pill lodge in his lower esophagus about 2 weeks ago. He had an outpatient barium enema and states that it was unremarkable. He had an appointment to be seen by Dr. Klein today, but was having significant odynophagia and has not been able to eat for the past week and therefore came to the hospital. On Xarelto and last had this 11/28 at 8pm. 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 Will plan for EGD +/- Dilatation in am. Hold lovenox after MN - Atrial fibrillation, on Xarelto. Last took 11/28. - Leukocytosis. Of note, has been on steroids at home, but also with questionable LLL infiltrate. Levaquin/Flagyl. - Questionable left lower lobe infiltrate, COPD, Emphysema, Pulmonary fibrosis. Levaquin, Flagyl, Solumedrol, Nebs. Pulmonary following - Hx Tonsillar cancer. Dx 01/18 with bx--->invasive poorly differentiated squamous cell carcinoma, clinically right tonsil. S/P chemotherapy and radiation and completed treatment in about 3 years ago. Followed by Dr. Klein. PLAN: - Plan for EGD plus or minus dilatation in am - Obtain consents - Mechanical soft diet with nectar thickened liquids - NPO after MN - Hold lovenox after MN - Continue PPI - Abx per attending. - Cont. ST - Will need Vital Stim as outpatient - Further recommendations to follow based on results of above - Pt seen and examined by Dr. Orozco and myself and this note is written on his behalf Agnes Kyle Nov 30, 2016 13:40
[2016-11-30] MEDS: DILTIAZEM HCL 60 MG TAB PO SCH (20:34)
[2016-11-30] MEDS ORDERED: methylPREDNISolone SOD SUCC 40 MG/1 ML VIAL IV PUSH SCH (21:00)
[2016-12-01] VITALS: BP 98/63; PULSE 90; RESP 18; TEMP 97.5; O2SAT 93
[2016-12-01] MEDS: metroNIDAZOLE 500 MG INJ 100 ML IV SCH (02:32)
[2016-12-01] MEDS ORDERED: CALCIUM CARBONATE 500 MG CHEWABLE TAB CHEW PRN (03:15)
[2016-12-01 03:20] VITALS: PULSE 88
[2016-12-01 04:00] VITALS: BP 110/66; PULSE 95; RESP 18; TEMP 97.4; O2SAT 95
[2016-12-01] MEDS: RESP: ALBUTEROL 2.5 MG/IPRATROPIUM 0.5 MG NEB (SCH) NEB ×2 (04:51→09:38)
[2016-12-01] MEDS: DILTIAZEM-CD 240 MG CAP ER PO SCH (06:22)
[2016-12-01 08:25] VITALS: BP 118/80; PULSE 105; RESP 18; TEMP 97.6; O2SAT 94
[2016-12-01 08:45] VITALS: BP 107/77; PULSE 94; RESP 18; TEMP 96.7
--- NOTE | 2016-12-01 08:49 | HHI.GIFU ---
Subjective Remarks EGD with dilatation performed. The mucosa of esophagus was coated with residual food vs camacho. No friable mucosa or ulcers. Biopsies taken. Esophagus was dilated to 16mm with resistance but relook exam showed no blood. Tolerated well. Objective Vitals I&O Vital Signs Date Time Temp Pulse Resp B/P (MAP) Pulse Ox O2 Delivery O2 Flow Rate FiO2 12/01/16 08:25 97.6 105 18 118/80 (93) 94 12/01/16 04:00 97.4 95 18 110/66 (81) 95 12/01/16 03:20 88 12/01/16 00:00 97.5 90 18 98/63 (75) 93 11/30/16 23:58 98 Room Air 11/30/16 21:37 97 11/30/16 20:00 97.6 95 18 111/73 (86) 98 11/30/16 16:06 97.4 101 18 102/71 (81) 93 I/O 11/30/16 11/30/16 11/30/16 12/01/16 12/01/16 12/01/16 07:00 15:00 23:00 07:00 15:00 23:00 Intake Total 480 ml 480 ml 650 ml 100 ml 500 ml Balance 480 ml 480 ml 650 ml 100 ml 500 ml Intake Oral 480 ml 480 ml 650 ml IV Total 100 ml Other 500 ml # Voids 3 7 3 2 Laboratory Date/Time Source Procedure Growth Status 11/28/16 23:00 Blood Peripheral Aerobic Blood Culture - Preliminary NO GROWTH IN 2 DAYS Resulted 11/28/16 23:00 Blood Peripheral Anaerobic Blood Culture - Preliminary NO GROWTH IN 2 DAYS Resulted 11/28/16 22:45 Nasal Aspirate Influenza Types A,B Antigen (WILLOW) - Final NEGATIVE FOR FLU A AND B ANTIGEN.... Complete Physical Exam HEENT: Normocephalic; atraumatic; no jaundice. CHEST: CTA CARDIAC: RRR ABDOMEN: Soft, nondistended, nontender; no hepatosplenomegaly; bowel sounds are present in all four quadrants. EXTREMITIES: No clubbing, cyanosis, or edema. SKIN: Normal; no rash; no jaundice. PYTHON DJANGO DEVELOPER: No focal deficits; alert and oriented times three. Assessment and Plan Plan ASSESSMENT: - Dysphagia in patient with hx of tonsillar cancer, s/p chemo/radiation 3 years ago. He has had intermittent issues with solids/pills (not liquids) getting caught in upper esophagus and had a pill lodge in his lower esophagus about 2 weeks ago. He had an outpatient barium enema and states that it was unremarkable. He had an appointment to be seen by Dr. Klein today, but was having significant odynophagia and has not been able to eat for the past week and therefore came to the hospital. On Xarelto and last had this 11/28 at 8pm. 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 Will plan for EGD +/- Dilatation in am. Hold lovenox after MN - Atrial fibrillation, on Xarelto. Last took 11/28. - Leukocytosis. Of note, has been on steroids at home, but also with questionable LLL infiltrate. Levaquin/Flagyl. - Questionable left lower lobe infiltrate, COPD, Emphysema, Pulmonary fibrosis. Levaquin, Flagyl, Solumedrol, Nebs. Pulmonary following - Hx Tonsillar cancer. Dx 01/18 with bx--->invasive poorly differentiated squamous cell carcinoma, clinically right tonsil. S/P chemotherapy and radiation and completed treatment in about 3 years ago. Follow[address] by Dr. Klein. - EGD with dilatation performed and biopsy taken of the upper esophagus May have camacho but not much inflammation. No blood after dilatation. He should have repeat dilatation in 2 weeks to 18mm. PLAN: - Restart Lovenox today, if improved OK to start Xarelto later today or tomorrow. - Continue PPI - Abx per attending. - Cont. ST - Will need Vital Stim as outpatient - Further recommendations to follow based on results of above Hakan Orozco MD Dec 01, 2016 08:49
[2016-12-01 09:37] LABS: AUTOMATED NEUTROPHIL # 14.1 TH/MM3 (1.8-7.7); BASOPHIL % 0.1 % (0.0-2.0); HEMATOCRIT 38.9 % (39.0-51.0); HEMO FLAGS DIFF FINAL; LYMPH % 3.2 % (9.0-44.0); LYMPHOCYTE # 0.5 TH/MM3 (1.0-4.8); MEAN CELL VOLUME 95.5 FL (80.0-100.0); MEAN CORPUSCULAR HGB CONC 32.5 % (32.0-36.0); NEUT % 88.7 % (16.0-70.0); PLATELET COUNT 483 TH/MM3 (150-450); RED BLOOD COUNT 4.07 MIL/MM3 (4.50-5.90); RED CELL DISTRIBUTION WIDTH 14.5 % (11.6-17.2); WHITE BLOOD COUNT 15.9 TH/MM3 (4.0-11.0)
[2016-12-01 09:38] VITALS: O2SAT 96
[2016-12-01] MEDS ORDERED: FLUCONAZOLE 200 MG TAB PO ONE (09:45)
[2016-12-01 10:01] LABS: BICARBONATE 26.7 MEQ/L (21.0-32.0); POTASSIUM 4.2 MEQ/L (3.5-5.1)
[2016-12-01] MEDS ORDERED: DIFL100T PO (10:45)
[2016-12-01] MEDS ORDERED: MEDR4PAK PO (10:45)
[2016-12-01] MEDS ORDERED: AUGM875T3 PO (10:45)
[2016-12-01] MEDS ORDERED: PRIL20TA2 PO (10:45)
--- NOTE | 2016-12-01 10:50 | HHI.DCPOC ---
Discharge Care Plan Diagnosis: (1) Sepsis (2) Pneumonia (3) Atrial fibrillation (4) Hypertension (5) COPD exacerbation Goals to Promote Your Health * To prevent worsening of your condition and complications * To maintain your health at the optimal level Directions to Meet Your Goals Take your medications as prescribed Follow your dietary instruction Follow activity as directed Keep your appointments as scheduled Take your immunizations and boosters as scheduled If your symptoms worsen call your PCP, if no PCP go to Urgent Care Center or Emergency Room Smoking is Dangerous to Your Health. Avoid second hand smoke Call the 24-hour hour crisis hotline for domestic abuse at Eric Acosta MD Dec 01, 2016 10:50
--- NOTE | 2016-12-01 10:54 | HHI.DS ---
Discharge Summary Admission Date Nov 29, 2016 at 00:02 Discharge Date: Dec 01, 2016 Admitting Diagnosis Pneumonia - failed outpatient treatment (1) COPD exacerbation ICD Code: J44.1 - Chronic obstructive pulmonary disease with (acute) exacerbation (2) Atrial fibrillation ICD Code: I48.91 - Unspecified atrial fibrillation (3) Hypertension ICD Code: I10 - Essential (primary) hypertension (4) Pneumonia ICD Code: J18.9 - Pneumonia, unspecified organism Status: Acute Procedures none Brief History - From Admission hx from ER communication, patient and review of medical records 2 weeks ago, swallowed pill and choke and coughed so hard then got worse, got to lungs went to dr fajardo and started on antibiotics azithromycin with prednisone 5 days course got better only a little bit was told to come to er by his office initially did have fever a few days- prior to start of azithromycin - 102F hx of throat cancer - 2yrs ago ent doctor is dr garrett- did have barium swallow done and did not show much has a lot of chest pain, all over now worse with deep breath not reproducible CBC/BMP: 12/01/16 0719 12/01/16 0719 Significant Findings Laboratory Tests Test 11/28/16 22:45 11/28/16 23:05 11/29/16 09:14 11/29/16 11:40 White Blood Count 17.6 TH/MM3 (4.0-11.0) Platelet Count 480 TH/MM3 (150-450) Neutrophils (%) (Auto) 86.8 % (16.0-70.0) Lymphocytes (%) (Auto) 3.0 % (9.0-44.0) Monocytes (%) (Auto) 10.2 % (0.0-8.0) Neutrophils # (Auto) 15.3 TH/MM3 (1.8-7.7) Lymphocytes # (Auto) 0.5 TH/MM3 (1.0-4.8) Monocytes # (Auto) 1.8 TH/MM3 (0-0.9) Prothrombin Time 13.0 SEC (9.8-11.6) Activated Partial Thromboplast Time 35.5 SEC (24.3-30.1) Blood Urea Nitrogen 20 MG/DL (7-18) Random Glucose 136 MG/DL (74-106) 239 MG/DL (74-106) Albumin 3.3 GM/DL (3.4-5.0) 2.7 GM/DL (3.4-5.0) Aspartate Amino Transf (AST/SGOT) 149 U/L (15-37) 94 U/L (15-37) Alanine Aminotransferase (ALT/SGPT) 286 U/L (12-78) 222 U/L (12-78) Estimat Glomerular Filtration Rate 88 ML/MIN (>89) 76 ML/MIN (>89) Creatine Kinase MB 11.3 NG/ML (0.5-3.6) 8.1 NG/ML (0.5-3.6) 8.7 NG/ML (0.5-3.6) Troponin I LESS THAN 0.02 NG/ML LESS THAN 0.02 NG/ML B-Type Natriuretic Peptide 191 PG/ML (0-100) Urine Turbidity HAZY (CLEAR) Urine Mucus FEW /lpf (OCC) Hemoglobin A1c 6.1 % (4.3-6.0) Test 12/01/16 07:19 White Blood Count 15.9 TH/MM3 (4.0-11.0) Red Blood Count 4.07 MIL/MM3 (4.50-5.90) Hemoglobin 12.7 GM/DL (13.0-17.0) Hematocrit 38.9 % (39.0-51.0) Platelet Count 483 TH/MM3 (150-450) Neutrophils (%) (Auto) 88.7 % (16.0-70.0) Lymphocytes (%) (Auto) 3.2 % (9.0-44.0) Neutrophils # (Auto) 14.1 TH/MM3 (1.8-7.7) Lymphocytes # (Auto) 0.5 TH/MM3 (1.0-4.8) Monocytes # (Auto) 1.3 TH/MM3 (0-0.9) Blood Urea Nitrogen 29 MG/DL (7-18) Random Glucose 121 MG/DL (74-106) Imaging Last Impressions Modified Barium Swallow 11/29/16 0000 Signed Impressions: Service Date/Time: Tuesday, November 29, 2016 00:00 - CONCLUSION: Airway penetration demonstrated with multiple consistencies. For a full detailed report, see report by the speech pathologist. Leonel Summers MD Chest X-Ray 11/28/162208 Signed Impressions: Service Date/Time: Monday, November 28, 2016 23:16 - CONCLUSION: Chronic parenchymal changes bilaterally with superimposed atelectasis and/or infiltrate left lower lobe. Rachele Solis MD PE at Discharge General: Elderly male in no acute distress. Heart: Regular rate and rhythm. No murmur. Lungs: Rhonchi noted in both bases, left greater than right. Breathing is nonlabored. Abdomen: Soft, nontender, nondistended. Extremities: No lower extremity edema. Psych: Alert and oriented. Pt update on day of discharge The patient has no complaints at this time. He is ambulating in the halls. He is requesting discharge home. Denies chest pain, dyspnea, cough. No nausea or vomiting. Hospital Course The patient was admitted for treatment of pneumonia, failed outpatient therapy. This was felt to be possibly secondary to aspiration. He was continued on IV antibiotics. Gastroenterology was consulted for evaluation of dysphagia. EGD was done with dilatation. Xarelto was held prior to procedure. Patient was started on Diflucan for possible candidal esophagitis. He stated that his symptoms improved significantly. He was continued on steroids for COPD. Gastroenterology cleared the patient to start Xarelto again following the procedure. Modified barium swallow was abnormal. Speech therapy recommended mechanical soft diet with thickened liquids. He was cleared for discharge by gastroenterology. His symptoms improved significantly and he was ambulating in the halls on room air. He was felt to be stable for discharge home. Pt Condition on Discharge: Stable Discharge Disposition: Discharge Home Discharge Time: > 30 minutes Discharge Instructions DIET: Follow Instructions for: Soft Diet Speech Therapy-Diet Recommends: Honey Thickened Liquids, Mechanical Soft, Chopped Meat w/Gravy Activities you can perform: Regular-No Restrictions Follow up Referrals: Gastroenterology - 2 Weeks with Chris Peters MD PCP Follow-up - 1 Week Pulmonology - 1 Week with Guerline Fajardo MD Speech Therapy New Medications: Amoxicillin-Clavulanate (Augmentin) 875-125 Mg Tab 1 TAB PO BID for Infection for 9 Days, #18 TAB 0 Refills Methylprednisolone Dosepak (Medrol Dosepak) 4 Mg Dspk 4 MG PO DIRECTED, #1 DSPK 0 Refills Per Pharmacist direction Fluconazole (Diflucan) 100 Mg Tab 100 MG PO DAILY for Infection for 10 Days, #10 TAB Changed Medications: Omeprazole Magnesium (Prilosec) 20 Mg Tab 20 MG PO BID for Reflux for 30 Days, #60 TAB 0 Refills (Changed from: DAILY; Refills: ) Continued Medications: Diltiazem (Diltiazem) 120 Mg Tab 120 MG PO HS for Angina, #120 TAB 0 Refills Diltiazem CD 24 HR (Diltiazem CD 24 HR) 240 Mg Caper 240 MG PO AC BREAKFAST, #30 CAP 0 Refills Fluticasone-Salmeterol Inh (Advair Diskus Inh) 250-50 Mcg/Blist Aer 1 PUFF INH BID, #1 INHALER 0 Refills Rinse mouth after use. Rivaroxaban (Xarelto) 20 Mg Tab 20 MG PO DAILY for Blood Clot Prevention, TAB 0 Refills Eric Acosta MD Dec 01, 2016 10:54
[2016-12-01] MEDS ORDERED: PROPOFOL 200 MG/20 ML AMP IV ONE (14:06)
[2016-12-01] MEDS ORDERED: LIDOCAINE HCL 1% PF 5 ML AMPULE OTHER ONE (14:06)
[2016-12-02] MEDS ORDERED: FLUCONAZOLE 100 MG TAB PO SCH (09:00)
--- NOTE | 2016-12-06 10:32 | PQ ---
Physician Query Response Document PATIENT: LADY GUZMAN : 1940 ADMIT DATE: 11/29/2016 12:02 AM DISCH DATE: 12/01/2016 11:50 AM RESPONDING PROVIDER #: [email or web address] QUERY TEXT: Rule Out Sepsis Clarification Sepsis is documented in the Medical Record. Please clarify whether: -- Patient has sepsis - Please document confirmed, suspected or probable causative organism - Please document confirmed, suspected or probable localized infection - Please clarify if sepsis is related to a device - Please clarify if sepsis was present on admission -- Sepsis was ruled out (include corresponding diagnosis for patient?s clinical picture and treatment ) -- Patient had sepsis which is resolved -- Other, please specify If you have any additional questions/comments and/or concerns, please do not hesitate to reach out to the CDI/Coding Hotline, Ext. [phone]. The patient's Clinical Indicators include: ED report: Patient with LLL infiltrate - failed outpatient treatment. Patient with sepsis criteria, h e has been pancultured. Patient will be admitted to the hospital. Case reviewed with Dr. Lux who accepts pt to service Sepsis Criteria SIRS Criteria (2 or more): Heart rate over 90, RR > 20 or PaCO2 < 32, WBC > 91322, < 4000 or > 10 % bands Criteria Outcome: Meets SIRS criteria, Meets sepsis criteria Discharge Care Plan Diagnosis: (1) Sepsis Blood cultures - no growth in 5 days. Query created by: Mary Guerrero on 12/05/2016 4:35 PM RESPONSE TEXT: Clarification: The patient met criteria for sepsis upon admission (tachycardia, leukocytosis, source: Pneumonia). Electronically signed by: Eric Acosta MD 12/06/2016 10:28 AM
== END 2016-12-01 11:50 | disposition home or self-care (01) | DRG 177 ==
LOC: NEPD 20:51 → NEDA 11-29 00:02 → N05A 11-29 01:30
PROVIDERS: ADMIT Family Medicine; ATTEND Family Medicine
PROC: 0DB18ZX Excision of Upper Esophagus, Via Natural or Artificial Opening Endoscopic, Diagnostic (ICD-10-PCS; 2016-12-01)
PROC: 0D718ZZ Dilation of Upper Esophagus, Via Natural or Artificial Opening Endoscopic (ICD-10-PCS; principal; 2016-12-01 08:15)
DX: J69.0 Pneumonitis due to inhalation of food and vomit (principal); A41.9 Sepsis, unspecified organism; B37.81 Candidal esophagitis; R13.13 Dysphagia, pharyngeal phase; I48.91 Unspecified atrial fibrillation; Z79.02 Long term (current) use of antithrombotics/antiplatelets; J44.1 Chronic obstructive pulmonary disease with (acute) exacerbation; I10 Essential (primary) hypertension; R73.03 Prediabetes; Z85.818 Personal history of malignant neoplasm of other sites of lip, oral cavity, and pharynx; Z92.3 Personal history of irradiation; Z92.21 Personal history of antineoplastic chemotherapy; Z89.022 Acquired absence of left finger(s); Z87.891 Personal history of nicotine dependence
CPT/HCPCS: 71010; 74230; 80048; 80053; 81001; 82550; 82552; 82948; 83036; 83605; 83735; 83880; 84100; 84439; 84443; 84484; 85025; 85610; 85730; 87040; 87804; 88305; 93005; 94640; 94664; 96361; 96365; 96375; C1769; J0456; J0696; J1650; J1956; J2920; J2930; J7030; J7050

== ENCOUNTER 2017-04-02 04:56 | Inpatient (IN) | payer OTHER, MEDICARE ==
[~2017-04-02] VITALS: Ht 190.5 cm; Wt 82.9 kg
[2017-04-02] VITALS (13 sets, daily range): BP systolic 106–140; BP diastolic 62–82; PULSE 18–122; RESP 18–19; TEMP 97.3–98.7; O2SAT 84–100
[~2017-04-02 04:56] MED LIST changes: -ACETCAP PO; -ATOR20TA PO; +AUGM875T3 PO; +DIFL100T PO; -DILT120C43 PO; +DILT120T PO; -DILT240C36 PO; +DILT240C44 PO; +MEDR4PAK PO; -METF500 PO; -PRIL20CA PO; +PRIL20TA2 PO; -RIVA20 PO; +XARE20TA PO
[2017-04-02] MEDS ORDERED: ONDANSETRON HCL 4 MG/2 ML VIAL IV PUSH ONE (05:45)
[2017-04-02] MEDS ORDERED: SODIUM CHLOR 0.9% 250 ML INJ 250 ML IV ONE (05:45)
[2017-04-02] MEDS ORDERED: MORPHINE SULFATE 4 MG/ML INJ IV PUSH ONE (05:45)
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
[2017-04-02 06:02] LABS: AUTOMATED NEUTROPHIL # 12.7 TH/MM3 (1.8-7.7); BASOPHIL # 0.1 TH/MM3 (0-0.2); BASOPHIL % 0.5 % (0.0-2.0); EOSINOPHIL # 0.4 TH/MM3 (0-0.4); EOSINOPHIL % 2.5 % (0.0-4.0); LYMPHOCYTE # 0.7 TH/MM3 (1.0-4.8); MEAN CELL VOLUME 91.1 FL (80.0-100.0); MEAN CORPUSCULAR HEMOGLOBIN 30.4 PG (27.0-34.0); MEAN CORPUSCULAR HGB CONC 33.4 % (32.0-36.0); MEAN PLATELET VOLUME 8.2 FL (7.0-11.0); MONO % 3.5 % (0.0-8.0); MONOCYTE # 0.5 TH/MM3 (0-0.9); NEUT % 88.5 % (16.0-70.0); PLATELET COUNT 289 TH/MM3 (150-450); RED BLOOD COUNT 4.28 MIL/MM3 (4.50-5.90); RED CELL DISTRIBUTION WIDTH 14.9 % (11.6-17.2); WHITE BLOOD COUNT 14.4 TH/MM3 (4.0-11.0)
[2017-04-02 06:15] LABS: ALBUMIN 3.2 GM/DL (3.4-5.0); AST (GOT) 28 U/L (15-37); BICARBONATE 26.6 MEQ/L (21.0-32.0); BLOOD UREA NITROGEN 14 MG/DL (7-18); CALCIUM 8.8 MG/DL (8.5-10.1); CHLORIDE 102 MEQ/L (98-107); CREATININE 0.83 MG/DL (0.60-1.30); GLOMERULAR FILTRATION RATE 90 ML/MIN (>89); GLUCOSE,RANDOM 93 MG/DL (74-106); MAGNESIUM 1.4 MG/DL (1.5-2.5); SODIUM (NA) 136 MEQ/L (136-145)
[2017-04-02 06:16] LABS: INTERNATIONAL NORMALIZED RATIO 1.3 RATIO; PROTHROMBIN TIME - PATIENT 13.4 SEC (9.8-11.6)
--- NOTE | 2017-04-02 06:25 | RADRPT ---
EXAM DATE/TIME: 04/02/2017 05:38 [facility] COMPARISON: CHEST SINGLE AP, November 28, 2016, 23:16. INDICATIONS : Fall three days ago with left flank pain. MEDICAL HISTORY : Chronic obstructive pulmonary disease. SURGICAL HISTORY : ORIF Left wrist and femur ENCOUNTER: Initial ACUITY: 3 days PAIN SCORE: 10/10 LOCATION: Left flank chest FINDINGS: Redemonstration of coarse lower lobe predominant interstitial prominence and airspace disease in the left lung base. No new focal pleural or parenchymal opacities. No significant pneumothorax. Cardiac s ilhouette is enlarged. No significant displaced acute rib fractures are noted. CONCLUSION: 1. Chronic interstitial and left lower lobe parenchymal changes. 2. No significant displaced acute fractures or pneumothorax. 3. Stable cardiomegaly. Cristhian Bird MD on April 02, 2017 at 6:22 Board Certified Radiologist. This report was verified electronically.
[2017-04-02 06:28] LABS: ALKALINE PHOSPHATASE 81 U/L (45-117); ALT (GPT) 22 U/L (12-78); TOTAL BILIRUBIN ADULT 0.4 MG/DL (0.2-1.0); TOTAL PROTEIN 6.5 GM/DL (6.4-8.2); TROPONIN I 0.09 NG/ML (0.02-0.05)
--- NOTE | 2017-04-02 06:29 | RADRPT ---
EXAM DATE/TIME: 04/02/2017 05:42 [facility] COMPARISON: No previous studies available for comparison. INDICATIONS : Left hand pain post fall three days ago. MEDICAL HISTORY : Chronic obstructive pulmonary disease. SURGICAL HISTORY : ORIF Left femur and wrist ENCOUNTER: Initial ACUITY: 3 days PAIN SCORE: 6/10 LOCATION: Left hand FINDINGS: Slightly comminuted fracture of the fourth proximal phalanx. 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 There is plate and screw fixation of the distal radius. Hardware is intact. Degenerative changes are most probably in the first carpal metacarpal joint. Remaining os seous structures are intact. S several radiopaque densities noted in the soft tissues in the region o f the second and third knuckles. CONCLUSION: 1. Comminuted fracture of the fourth proximal phalanx. 2. Several radiopaque densities projecting in the soft tissues of the first and second knuckles. 3. 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 4. Plate fixation of the distal radius. 5. Degenerative osteoarthritis. Cristhian Bird MD on April 02, 2017 at 6:25 Board Certified Radiologist. This report was verified electronically.
[2017-04-02] MEDS ORDERED: IOHEXOL 350 MG/ML 10 ML VIAL (for RAD DIAG) IVCONTRAST ONE (07:04)
[2017-04-02 07:11] LABS: BILIRUBIN, URINE NEG (NEG); BLOOD, URINE NEG (NEG); GLUCOSE,URINE NEG (NEG); KETONE, URINE NEG (NEG); MUCUS URINE FEW /lpf (OCC); NITRITE,URINE NEG (NEG); PH, URINE 6.5 (5.0-8.5); URINE COLOR YELLOW (YELLW/STRAW); URINE LEUKOCYTE ESTERASE NEG (NEG)
--- NOTE | 2017-04-02 07:14 | RADRPT ---
EXAM DATE/TIME: 04/02/2017 06:44 [facility] COMPARISON: No previous studies available for comparison. INDICATIONS : Trauma; patient fell 3 days ago and complains of rib pain. IV CONTRAST: 96 cc Omnipaque 350 (iohexol) IV ; Cumulative dose for multiple exams. RADIATION DOSE: 11.91 CTDIvol (mGy) ; Combined studies - Thorax/Abdomen/Pelvis MEDICAL HISTORY : Chronic obstructive pulmonary disease. Carcinoma, tonsillar. Gastroesophageal reflux disease.Atrial f ibrillation SURGICAL HISTORY : Left hip surgery ENCOUNTER: Initial ACUITY: 3 days PAIN SCALE: 6/10 LOCATION: chest TECHNIQUE: Volumetric scanning of the chest was performed. Using automated exposure control and adjustment of t he mA and/or kV according to patient size, radiation dose was kept as low as reasonably achievable to obtain optimal diagnostic quality images. DICOM format image data is available electronically for review and comparison. Follow-up recommendations for detected pulmonary nodules are based at a minimum on nodule size and pa tient risk factors according to Fleischner Society Guidelines. FINDINGS: LUNGS: Chronic interstitial prominence in the peripheral upper lobes, right middle lobe and lingula with hon eycombing at the lung bases and bronchiectasis. PLEURA: Trace bilateral pleural effusions. No pneumothorax. MEDIASTINUM: Dense coronary calcifications. Four-chamber cardiomegaly. No significant pericardial effusion. AXILLAE: Within normal limits. No lymphadenopathy. SKELETAL: Within normal limits for patient age. No displaced rib fractures. MISCELLANEOUS: Small subcentimeter hypodense cystic lesions in the right lobe of the liver and superior poles of the kidneys which are too small to fully characterize. CONCLUSION: 1. No significant acute traumatic injury to chest. Specifically, no displaced rib fractures or pneumo thorax. 2. Chronic interstitial change and fibrosis at the lung bases. 3. Dense coronary artery calcifications. 4. Four-chamber cardiomegaly. Cristhian Bird MD on April 02, 2017 at 7:01 Board Certified Radiologist. This report was verified electronically.
--- NOTE | 2017-04-02 07:18 | RADRPT ---
EXAM DATE/TIME: 04/02/2017 06:44 [facility] COMPARISON: No previous studies available for comparison. INDICATIONS : Trauma; patient fell 3 days ago. IV CONTRAST: 96 cc Omnipaque 350 (iohexol) IV ; Cumulative dose for multiple exams. ORAL CONTRAST: No oral contrast ingested. RADIATION DOSE: 11.91 CTDIvol (mGy) ; Combined studies - Thorax/Abdomen/Pelvis MEDICAL HISTORY : Chronic obstructive pulmonary disease. Carcinoma, tonsillar. Gastroesophageal reflux disease.Atrial f ibrillation SURGICAL HISTORY : Left hip surgery ENCOUNTER: Initial ACUITY: 3 days PAIN SCALE: 6/10 LOCATION: abdomen TECHNIQUE: Volumetric scanning of the abdomen and pelvis was performed. Using automated exposure control and ad justment of the mA and/or kV according to patient size, radiation dose was kept as low as reasonably achievable to obtain optimal diagnostic quality images. DICOM format image data is available electro nically for review and comparison. FINDINGS: LIVER: Small hypodense cystic lesions in the right lobe of the liver which are too small to fully characteri ze. Liver is otherwise unremarkable. Gallbladder is mildly distended but otherwise unremarkable. SPLEEN: Normal size without lesion. PANCREAS: Within normal limits. KIDNEYS: Small subcentimeter cysts in the superior pole of the left kidney which are to small to fully charact erize. 5 mm calyceal calculus in the superior pole left kidney. Kidneys otherwise demonstrate symmetr ic enhancement without evidence for hydronephrosis or focal mass. ADRENAL GLANDS: Within normal limits. VASCULAR: There is no aortic aneurysm. BOWEL/MESENTERY: The stomach, small bowel, and colon demonstrate no acute abnormality. Mild sigmoid diverticulosis. T here is no free intraperitoneal air or fluid. ABDOMINAL WALL: Within normal limits. RETROPERITONEUM: There is no lymphadenopathy. BLADDER: No wall thickening or mass. REPRODUCTIVE: Nonspecific prostate enlargement. INGUINAL: There is no lymphadenopathy or hernia. MUSCULOSKELETAL: Fixation hardware in the left femoral neck. Degenerative spondylosis of the lower lumbar spine. CONCLUSION: 1. No acute traumatic abnormality in the abdomen or pelvis. 2. Ancillary findings including sigmoid diverticulosis, nonspecific prostate enlargement, nonobstruct ing 5 mm calyceal calculus in the left kidney, and small subcentimeter hypodense cystic lesions in th e kidneys and liver which are to small to fully characterize. Cristhian Bird MD on April 02, 2017 at 7:14 Board Certified Radiologist. This report was verified electronically.
--- NOTE | 2017-04-02 07:29 | PD ---
Physical Exam Date Seen by Provider: Apr 02, 2017 Time Seen by Provider: 07:37 Narrative 77-year-old male came to the emergency room for a fall. This happened 2 days ago. The patient has been complaining of left hand and finger pain and left- sided pain. He was seen by the previous ER physician. Please refer to her history and physical for further details. Workup was initiated including CAT scan of the chest and abdomen and pelvis. Patient has history of COPD and the CT scan showed chronic interstitial changes of the lung but no traumatic injuries. There was also mentioned as an incidental finding of coronary calcification and cardiomegaly. CT scan of the abdomen and pelvis was negative. X-ray of his left hand showed a proximal fourth phalanx fracture. I have ordered a finger splint. Patient has elevated troponin. I had a lengthy discussion with the patient and his . Given the elevated troponin I would like to admit this patient. Awaiting for the hospitalist to call back for admission. Patient is agreeable to the admission. Patient has history of A. fib and he was in A. fib today. 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 Zhang. However patient does not remember the last time he had a stress test or any workup for coronary artery disease. Patient also has history of COPD and after initially arrived his oxygen saturation became low where he required oxygen via nasal cannula. Patient has not required oxygen at home. Data Data Last Documented VS Vital Signs Date Time Temp Pulse Resp B/P (MAP) Pulse Ox O2 Delivery O2 Flow Rate FiO2 04/02/17 07:46 98 Nasal Cannula 2.00 04/02/17 07:46 112 18 120/76 (91) 04/02/17 05:07 21 04/02/17 05:00 98.7 Orders Orders Complete Blood Count With Diff (04/02/17 05:32) Comprehensive Metabolic Panel (04/02/17 05:32) Creatine Kinase (Cpk) (04/02/17 05:32) Ckmb (Isoenzyme) Profile (04/02/17 05:32) Troponin I (04/02/17 05:32) B-Type Natriuretic Peptide (04/02/17 05:32) Prothrombin Time / Inr (Pt) (04/02/17 05:32) Act Partial Throm Time (Ptt) (04/02/17 05:32) Urinalysis - C+S If Indicated (04/02/17 05:32) Magnesium (Mg) (04/02/17 05:32) Chest, Single Ap (04/02/17 05:32) Ct Abd/Pel W Iv Contrast(Rout) (04/02/17 05:32) Iv Access Insert/Monitor (04/02/17 05:32) Ecg Monitoring (04/02/17 05:32) Oximetry (04/02/17 05:32) Morphine Inj (Morphine Inj) (04/02/17 05:45) Ondansetron Inj (Zofran Inj) (04/02/17 05:45) Sodium Chlor 0.9% 250 Ml Inj (Ns 250 Ml (04/02/17 05:45) Hand, Complete ([id number]) (04/02/17 05:35) Ed Poc Ultrasound (04/02/17 05:51) CKMB (04/02/17 05:43) CKMB% (04/02/17 05:43) Ct Thorax/ Chest W Iv Contrast (04/02/17 06:44) Iohexol 350 Inj (Omnipaque 350 Inj) (04/02/17 07:04) Electrocardiogram (04/02/17 05:10) Support Splint (04/02/17 07:35) Admit Order (Ed Use Only) (04/02/17 07:53) Labs Laboratory Tests Test 04/02/17 05:43 04/02/17 06:19 White Blood Count 14.4 TH/MM3 Red Blood Count 4.28 MIL/MM3 Hemoglobin 13.0 GM/DL Hematocrit 39.0 % Mean Corpuscular Volume 91.1 FL Mean Corpuscular Hemoglobin 30.4 PG Mean Corpuscular Hemoglobin Concent 33.4 % Red Cell Distribution Width 14.9 % Platelet Count 289 TH/MM3 Mean Platelet Volume 8.2 FL Neutrophils (%) (Auto) 88.5 % Lymphocytes (%) (Auto) 5.0 % Monocytes (%) (Auto) 3.5 % Eosinophils (%) (Auto) 2.5 % Basophils (%) (Auto) 0.5 % Neutrophils # (Auto) 12.7 TH/MM3 Lymphocytes # (Auto) 0.7 TH/MM3 Monocytes # (Auto) 0.5 TH/MM3 Eosinophils # (Auto) 0.4 TH/MM3 Basophils # (Auto) 0.1 TH/MM3 CBC Comment DIFF FINAL Differential Comment Prothrombin Time 13.4 SEC Prothromb Time International Ratio 1.3 RATIO Activated Partial Thromboplast Time 35.9 SEC Blood Urea Nitrogen 14 MG/DL Creatinine 0.83 MG/DL Random Glucose 93 MG/DL Total Protein 6.5 GM/DL Albumin 3.2 GM/DL Calcium Level 8.8 MG/DL Magnesium Level 1.4 MG/DL Alkaline Phosphatase 81 U/L Aspartate Amino Transf (AST/SGOT) 28 U/L Alanine Aminotransferase (ALT/SGPT) 22 U/L Total Bilirubin 0.4 MG/DL Sodium Level 136 MEQ/L Potassium Level 4.4 MEQ/L Chloride Level 102 MEQ/L Carbon Dioxide Level 26.6 MEQ/L Anion Gap 7 MEQ/L Estimat Glomerular Filtration Rate 90 ML/MIN Total Creatine Kinase 425 U/L Creatine Kinase MB 6.8 NG/ML Creatine Kinase MB % 1.6 % Troponin I 0.09 NG/ML B-Type Natriuretic Peptide 345 PG/ML Urine Color YELLOW Urine Turbidity CLEAR Urine pH 6.5 Urine Specific [place] 1.013 Urine Protein NEG mg/dL Urine Glucose (UA) NEG mg/dL Urine Ketones NEG mg/dL Urine Occult Blood NEG Urine Nitrite NEG Urine Bilirubin NEG Urine Urobilinogen LESS THAN 2.0 MG/DL Urine Leukocyte Esterase NEG Urine RBC 2 /hpf Urine Mucus FEW /lpf Microscopic Urinalysis Comment CULT NOT INDICATED MDM Supervised Visit with POLI: No Diagnosis Primary Impression: Fall Qualified Codes: W19.XXXA - Unspecified fall, initial encounter Additional Impressions: Finger fracture, left Qualified Codes: S62.645A - Nondisplaced fracture of proximal phalanx of left ring finger, initial encounter for closed fracture Elevated troponin I level COPD (chronic obstructive pulmonary disease) Qualified Codes: J44.9 - Chronic obstructive pulmonary disease, unspecified Hypoxic A-fib Qualified Codes: I48.2 - Chronic atrial fibrillation Admitting Information Admitting Physician Requests: Admit Scripts Oxygen (O2) (Oxygen (O2)) Device LITER MALINDA.CANULA CONTINUOUS for Prevent Hypoxemia, #2 Oxygen Concentrator Portable Gaseous 2 L/min via Nasal Canula Continuous For 99 months Prov: Donna Marquez MD 04/03/17 Prednisone (21) 10 mg tab Dose Pack (Prednisone (21) 10 mg tab Dose Pack) 10 Mg Pack 10 MG PO DIRECTED for Inflammation, #1 DSPK 0 Refills Prov: Donna Marquez MD 04/03/17 Damien Seals MD Apr 02, 2017 07:29
[2017-04-02] MEDS ORDERED: BISACODYL 10 MG SUPP RECTAL PRN (08:00)
[2017-04-02] MEDS ORDERED: RESP: ALBUTEROL 2.5 MG/3 ML NEB (PRN) INH (08:00)
[2017-04-02] MEDS ORDERED: ONDANSETRON HCL 4 MG/2 ML VIAL IVP PRN (08:00)
[2017-04-02] MEDS ORDERED: NALOXONE HCL 0.4 MG/ML AMP IV PUSH PRN (08:00)
[2017-04-02] MEDS ORDERED: MAGNESIUM SULFATE 1 GM PREMIX 100 ML IV ONE (08:00)
[2017-04-02] MEDS ORDERED: MAGNESIUM HYDROXIDE SUSP 30 ML CUP PO PRN (08:00)
[2017-04-02] MEDS ORDERED: ACETAMINOPHEN 325 MG TAB PO PRN (08:00)
[2017-04-02] MEDS ORDERED: SENNOSIDES 8.6 MG TAB PO PRN (08:00)
[2017-04-02] MEDS ORDERED: SODIUM CHLORIDE 0.9% FLUSH 10 ML FLUSH IV FLUSH PRN (08:00)
[2017-04-02] MEDS ORDERED: LACTULOSE SYRUP 20 GM/30 ML CUP PO PRN (08:00)
[2017-04-02] MEDS ORDERED: RESP: ALBUTEROL 2.5 MG/IPRATROPIUM 0.5 MG NEB (PRN) ONE (08:10)
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
[2017-04-02] MEDS: RESP: ALBUTEROL 2.5 MG/IPRATROPIUM 0.5 MG NEB (SCH) INH ×4 (08:18→20:19)
[2017-04-02] MEDS: ENOXAPARIN SODIUM 40 MG/0.4 ML SYRINGE SQ SCH (08:53)
[2017-04-02] MEDS: methylPREDNISolone SOD SUCC 125 MG/2 ML VIAL IV PUSH SCH ×3 (08:54→20:10)
[2017-04-02] MEDS: SODIUM CHLORIDE 0.9% FLUSH 10 ML FLUSH IV FLUSH SCH ×2 (08:55→20:11)
[2017-04-02] MEDS: DOCUSATE SODIUM 50 MG/SENNA 8.6 MG TAB PO SCH ×2 (09:00→20:21)
[2017-04-02] MEDS ORDERED: MORPHINE SULFATE 2 MG/ML INJ IV PUSH PRN (10:00)
[2017-04-02] MEDS: ACETAMINOPHEN/HYDROcodone 325 MG/5 MG TAB PO PRN ×3 (11:28→20:10)
--- NOTE | 2017-04-02 12:18 | EKG ---
Date Performed: 04/02/2017 Time Performed: 05:10:55 PTAGE: 77 years EKG: ATRIAL FIBRILLATION WITH RAPID VENTRICULAR RESPONSE INDETERMINATE AXIS PATTERN CONSISTENT W ITH PULMONARY DISEASE POSSIBLE RIGHT VENTRICULAR HYPERTROPHY ABNORMAL ECG PREVIOUS TRACING : 11/29/2016 00.59 Since the prior tracing, there has been no significant riley DOCTOR: Cedric Nuno Interpretating Date/Time 04/02/2017 12:17:38
[2017-04-02 13:31] LABS: TROPONIN I 0.07 NG/ML (0.02-0.05)
[2017-04-02] MEDS: DILTIAZEM-CD 240 MG CAP ER PO SCH (14:14)
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
[2017-04-02] MEDS ORDERED: DILTIAZEM-CD 120 MG CAP ER PO SCH (21:00)
[2017-04-02 22:04] LABS: TROPONIN I 0.04 NG/ML (0.02-0.05)
[2017-04-03] VITALS (7 sets, daily range): BP systolic 102–158; BP diastolic 56–73; PULSE 65–83; RESP 16–20; TEMP 97.3–97.6; O2SAT 92–98
[2017-04-03] MEDS: ACETAMINOPHEN/HYDROcodone 325 MG/5 MG TAB PO PRN ×2 (01:04→06:33)
[2017-04-03] MEDS: methylPREDNISolone SOD SUCC 125 MG/2 ML VIAL IV PUSH SCH ×2 (02:24→07:54)
[2017-04-03 05:29] LABS: BICARBONATE 28.5 MEQ/L (21.0-32.0); CALCIUM 9.2 MG/DL (8.5-10.1); CREATININE 0.81 MG/DL (0.60-1.30); MAGNESIUM 1.5 MG/DL (1.5-2.5)
[2017-04-03 05:30] LABS: AUTOMATED NEUTROPHIL # 15.9 TH/MM3 (1.8-7.7); BASOPHIL % 0.1 % (0.0-2.0); HEMATOCRIT 36.4 % (39.0-51.0); LYMPH % 3.6 % (9.0-44.0); LYMPHOCYTE # 0.6 TH/MM3 (1.0-4.8); MEAN CELL VOLUME 90.5 FL (80.0-100.0); MEAN CORPUSCULAR HEMOGLOBIN 29.8 PG (27.0-34.0); MEAN CORPUSCULAR HGB CONC 32.9 % (32.0-36.0); MEAN PLATELET VOLUME 8.3 FL (7.0-11.0); MONO % 1.9 % (0.0-8.0); MONOCYTE # 0.3 TH/MM3 (0-0.9); NEUT % 94.4 % (16.0-70.0); PLATELET COUNT 262 TH/MM3 (150-450); RED BLOOD COUNT 4.02 MIL/MM3 (4.50-5.90); RED CELL DISTRIBUTION WIDTH 14.8 % (11.6-17.2); WHITE BLOOD COUNT 16.8 TH/MM3 (4.0-11.0)
[2017-04-03] MEDS: SODIUM CHLORIDE 0.9% FLUSH 10 ML FLUSH IV FLUSH SCH (07:23)
[2017-04-03] MEDS: RESP: ALBUTEROL 2.5 MG/IPRATROPIUM 0.5 MG NEB (SCH) INH ×2 (07:33→11:49)
[2017-04-03] MEDS: DOCUSATE SODIUM 50 MG/SENNA 8.6 MG TAB PO SCH (07:54)
[2017-04-03] MEDS: ENOXAPARIN SODIUM 40 MG/0.4 ML SYRINGE SQ SCH (07:54)
[2017-04-03] MEDS: DILTIAZEM-CD 240 MG CAP ER PO SCH (07:54)
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
--- NOTE | 2017-04-03 09:03 | HHI.PR ---
Subjective Remarks Feels improved. Waking without problems Wants to go home Says [facility] has all meds for copd at home. No fever or chills. No n/v/d/c. Objective Vitals Vital Signs Date Time Temp Pulse Resp B/P (MAP) Pulse Ox O2 Delivery O2 Flow Rate FiO2 04/03/17 08:00 97.3 82 20 110/72 (85) 92 04/03/17 07:33 96 21 04/03/17 04:05 65 04/03/17 04:00 97.6 70 18 158/72 (100) 95 04/03/17 04:00 Room Air 04/03/17 02:22 17 04/03/17 00:00 97.4 83 16 119/73 (88) 95 04/03/17 00:00 Room Air 04/02/17 23:52 82 04/02/17 20:23 96 04/02/17 20:19 79 04/02/17 20:00 97.5 92 18 140/62 (88) 98 04/02/17 16:00 97.3 82 19 126/69 (88) 96 04/02/17 16:00 100 04/02/17 12:00 97.8 104 19 124/82 (96) 93 04/02/17 09:45 98.3 122 19 106/67 (80) 91 04/02/17 09:18 I/O 04/02/17 04/02/17 04/02/17 04/03/17 04/03/17 04/03/17 07:00 15:00 23:00 07:00 15:00 23:00 Intake Total 100 ml 480 ml Output Total 2300 ml Balance 100 ml -1820 ml Intake Oral 100 ml 480 ml Output Urine Total 2300 ml # Bowel Movements 1 Result Diagram: 04/03/17 0400 04/03/17 0400 Imaging Last Impressions Chest CT 04/02/17 0644 Signed Impressions: Service Date/Time: Sunday, April 02, 2017 06:44 - CONCLUSION: 1. No significant acute traumatic injury to chest. Specifically, no displaced rib fractures or pneumothorax. 2. Chronic interstitial change and fibrosis at the lung bases. 3. Dense coronary artery calcifications. 4. Four-chamber cardiomegaly. Cristhian Bird MD Hand X-Ray 04/02/17 0552 Signed Impressions: Service Date/Time: Sunday, April 02, 2017 05:42 - CONCLUSION: 1. Comminuted fracture of the fourth proximal phalanx. 2. Several radiopaque densities projecting in the soft tissues of the first and second knuckles. 3. 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 4. Plate fixation of the distal radius. 5. Degenerative osteoarthritis. Cristhian Bird MD Chest X-Ray 04/02/17 0532 Signed Impressions: Service Date/Time: Sunday, April 02, 2017 05:38 - CONCLUSION: 1. Chronic interstitial and left lower lobe parenchymal changes. 2. No significant displaced acute fractures or pneumothorax. 3. Stable cardiomegaly. Cristhian Bird MD Abdomen/Pelvis CT 04/02/17 0532 Signed Impressions: Service Date/Time: Sunday, April 02, 2017 06:44 - CONCLUSION: 1. No acute traumatic abnormality in the abdomen or pelvis. 2. Ancillary findings including sigmoid diverticulosis, nonspecific prostate enlargement, nonobstructing 5 mm calyceal calculus in the left kidney, and small subcentimeter hypodense cystic lesions in the kidneys and liver which are to small to fully characterize. Cristhian Bird MD Objective Remarks GENERAL: Well-nourished, well-developed pleasant elderly male patient in [facility]. CARDIOVASCULAR: Irregular and tachycardic rate and rhythm. S1, S2 noted. No murmur appreciated. RESPIRATORY: No accessory muscle use. Crackles at bilateral bases, with scattered wheezing. Breath sounds equal bilaterally. GASTROINTESTINAL: Abdomen soft, non-tender, nondistended. Normoactive bowel sounds x4. MUSCULOSKELETAL: No obvious deformities. Trace BLE edema around the ankles. Left 3rd and 4th digit s/p distal amputation. Left 4th phalanx edematous. NEUROLOGICAL: Awake and alert. No obvious cranial nerve deficits. Motor grossly within normal limits. Normal speech. PSYCHIATRIC: Appropriate mood and affect; insight and judgment normal. A/P Assessment and Plan 77-year-old male with history of atrial fibrillation on Xarelto, COPD, HTN, throat cancer s/p chemo/radiation 2014, presents after a fall on Thursday 03/30 with left hand pain, left thorax pain, and shortness of breath. Acute Respiratory Failure, Hypoxia, Acute COPD Exacerbation: O2 sat down to 84 % on 2L NC while in the ED, +wheezing/crackles on exam. Suspect secondary to COPD exacerbation. Not on home oxygen. Sees Dr. Fajardo as outpatient. -CXR images reviewed, shows chronic interstitial and LLL parenchymal changes , otherwise no acute findings -Chest CT reviewed, no chronic interstitial change and fibrosis at the lung bases -Continue IV Solumedrol taper down as tolerated , Duonebs qid maria alejandra, albuterol nebs prn -Continue O2, will likely need oxygen at discharge, plan for home O2 walk test within 1 day of discharge -Incentive spirometry -Monitor for improvement Elevated Troponin: troponin 0.09, previously normal back in . EKG reviewed, shows afib with RVR, no acute ischemic changes -continue to trend serial cardiac enzymes and EKGs -monitor on telemetry -consult patient's grinding wheel inspector Dr. Zhang Atrial Fibrillation: EKG shows afib with RVR HR 108. -continue home meds once updated by RN, patient reportedly on Xarelto and Cardizem Mechanical Fall with left sided rib cage pain. Chest CT and CXR negative for fracture. -suspect musculoskeletal secondary to fall -Tylenol, norco prn Left 4th Phalanx Fracture: s/p fall. Left hand xray shows comminuted fracture of the fourth proximal phalanx. -splint ordered -consult hand surgery All other chronic medical conditions stable, continue home meds once updated in med rec. DVT Prophylaxis: Lovenox sq for now, restart xarelto once updated in med rec and after seen by cardiology Discussed Condition With Patient, nurse Failed O2 walking test . CM consulted for DC plan Needs O2 at home ordered Donna Marquez MD Apr 03, 2017 09:03
[2017-04-03] MEDS ORDERED: RIVAROXABAN 20 MG TAB PO SCH (10:00)
[2017-04-03] MEDS ORDERED: PRED10PA PO (10:52)
--- NOTE | 2017-04-03 10:52 | HHI.DS ---
Discharge Summary Admission Date Apr 02, 2017 at 07:55 Discharge Date: Apr 03, 2017 Admitting Diagnosis hypoxia, fall, elevated troponin, finger fracture (1) COPD exacerbation ICD Code: J44.1 - Chronic obstructive pulmonary disease with (acute) exacerbation (2) Atrial fibrillation ICD Code: I48.91 - Unspecified atrial fibrillation (3) Hypertension ICD Code: I10 - Essential (primary) hypertension Procedures No procedures Brief History - From Admission Written by Jamila Chaney, acting as scribe for Dr. Acosta on 04/02/17 at 08: 11. 77-year-old male with history of atrial fibrillation on Xarelto, COPD, HTN, throat cancer s/p chemo/radiation 2014, presents after a fall on Thursday 03/30 with left hand pain, left thorax pain, and shortness of breath. The patient reports was walking from the vehicle to the sidewalk and accidentally tripped over the curb. Denies loss of consciousness or hitting his head. He complains of pain at the left hand and swelling of the 4th finger. He also reports feeling sore at the left lateral rib cage since the fall, worse with deep inspiration and palpation. He was to go on with his daily activities, however then late Friday 03/31 he started to get body shakes and weakness. He reports shortness of breath secondary to his COPD. He believes his shortness of breath has been getting worse over the past 6months. He states he has been off Advair for awhile now and he believes he should be back on this. He does not wear oxygen at home. His procedure manager is Dr. Fajardo. His cosmetic sales consultant is Dr. Zhang. The patient has no other medical complaints at this time including no headache, chest pain, palpitations, abdominal pain, nausea/vomiting, or urinary complaints. CBC/BMP: 04/03/17 0400 04/03/17 0400 Significant Findings Laboratory Tests Test 04/02/17 05:43 04/02/17 06:19 04/02/17 08:30 04/02/17 12:28 White Blood Count 14.4 TH/MM3 (4.0-11.0) Red Blood Count 4.28 MIL/MM3 (4.50-5.90) Neutrophils (%) (Auto) 88.5 % (16.0-70.0) Lymphocytes (%) (Auto) 5.0 % (9.0-44.0) Neutrophils # (Auto) 12.7 TH/MM3 (1.8-7.7) Lymphocytes # (Auto) 0.7 TH/MM3 (1.0-4.8) Prothrombin Time 13.4 SEC (9.8-11.6) Activated Partial Thromboplast Time 35.9 SEC (24.3-30.1) Albumin 3.2 GM/DL (3.4-5.0) Magnesium Level 1.4 MG/DL (1.5-2.5) Total Creatine Kinase 425 U/L (39-308) 429 U/L (39-308) Creatine Kinase MB 6.8 NG/ML (0.5-3.6) 6.1 NG/ML (0.5-3.6) Troponin I 0.09 NG/ML (0.02-0.05) 0.07 NG/ML (0.02-0.05) B-Type Natriuretic Peptide 345 PG/ML (0-100) Urine Mucus FEW /lpf (OCC) Test 04/02/17 20:16 04/03/17 04:00 Total Creatine Kinase 360 U/L (39-308) Creatine Kinase MB 7.0 NG/ML (0.5-3.6) White Blood Count 16.8 TH/MM3 (4.0-11.0) Red Blood Count 4.02 MIL/MM3 (4.50-5.90) Hemoglobin 12.0 GM/DL (13.0-17.0) Hematocrit 36.4 % (39.0-51.0) Neutrophils (%) (Auto) 94.4 % (16.0-70.0) Lymphocytes (%) (Auto) 3.6 % (9.0-44.0) Neutrophils # (Auto) 15.9 TH/MM3 (1.8-7.7) Lymphocytes # (Auto) 0.6 TH/MM3 (1.0-4.8) Random Glucose 154 MG/DL (74-106) PE at Discharge GENERAL: Well-nourished, well-developed pleasant elderly male patient in [facility]. CARDIOVASCULAR: Irregular and tachycardic rate and rhythm. S1, S2 noted. No murmur appreciated. RESPIRATORY: No accessory muscle use. Crackles at bilateral bases, with scattered wheezing. Breath sounds equal bilaterally. GASTROINTESTINAL: Abdomen soft, non-tender, nondistended. Normoactive bowel sounds x4. MUSCULOSKELETAL: No obvious deformities. Trace BLE edema around the ankles. Left 3rd and 4th digit s/p distal amputation. Left 4th phalanx edematous. NEUROLOGICAL: Awake and alert. No obvious cranial nerve deficits. Motor grossly within normal limits. Normal speech. PSYCHIATRIC: Appropriate mood and affect; insight and judgment normal. Hospital Course 77-year-old male with history of atrial fibrillation on Xarelto, COPD, HTN, throat cancer s/p chemo/radiation 2014, presents after a fall on Thursday 03/30 with left hand pain, left thorax pain, and shortness of breath. Acute Respiratory Failure, Hypoxia, Acute COPD Exacerbation: O2 sat down to 84 % on 2L NC while in the ED, +wheezing/crackles on exam. Suspect secondary to COPD exacerbation. Not on home oxygen. Sees Dr. Fajardo as outpatient. -CXR images reviewed, shows chronic interstitial and LLL parenchymal changes , otherwise no acute findings -Chest CT reviewed, no chronic interstitial change and fibrosis at the lung bases -Continue IV Solumedrol taper down as tolerated , Duonebs qid maria alejandra, albuterol nebs prn -Continue O2, will likely need oxygen at discharge, plan for home O2 walk test within 1 day of discharge -Incentive spirometry -Monitor for improvement Elevated Troponin: troponin 0.09, previously normal back in . EKG reviewed, shows afib with RVR, no acute ischemic changes -continue to trend serial cardiac enzymes and EKGs -monitor on telemetry -consult patient's cosmetic sales consultant Dr. Zhang Atrial Fibrillation: EKG shows afib with RVR HR 108. -continue home meds once updated by RN, patient reportedly on Xarelto and Cardizem Mechanical Fall with left sided rib cage pain. Chest CT and CXR negative for fracture. -suspect musculoskeletal secondary to fall -Tylenol, norco prn Left 4th Phalanx Fracture: s/p fall. Left hand xray shows comminuted fracture of the fourth proximal phalanx. -splint ordered -consult hand surgery. Patient is refusing surgery. All other chronic medical conditions stable, continue home meds once updated in med rec. DVT Prophylaxis: Lovenox sq for now, restart xarelto once updated in med rec and after seen by cardiology Discussed Condition With Patient, nurse Failed O2 walking test . CM consulted for DC plan Needs O2 at home ordered Patient was discharged in stable condition at home to follow-up with PCP and consultants as outpatient Pt Condition on Discharge: Stable Discharge Disposition: Discharge Home Discharge Time: > 30 minutes Discharge Instructions DIET: Follow Instructions for: Heart Healthy Diet Activities you can perform: Regular-No Restrictions Follow up Referrals: Cardiology - 2 Weeks Cardiology PCP Follow-up - 2-3 Days PCP Follow-up Pulmonology - 1 Week Pulmonology New Medications: Oxygen (O2) (Oxygen (O2)) Device LITER MALINDA.CANULA CONTINUOUS for Prevent Hypoxemia, #2 Oxygen Concentrator Portable Gaseous 2 L/min via Nasal Canula Continuous For 99 months Prednisone (21) 10 mg tab Dose Pack (Prednisone (21) 10 mg tab Dose Pack) 10 Mg Pack 10 MG PO DIRECTED for Inflammation, #1 DSPK 0 Refills Continued Medications: Amoxicillin-Clavulanate (Augmentin) 875-125 Mg Tab 1 TAB PO BID for Infection for 9 Days, #18 TAB 0 Refills Diltiazem (Diltiazem) 120 Mg Tab 120 MG PO HS for Angina, #120 TAB 0 Refills Diltiazem CD 24 HR (Diltiazem CD 24 HR) 240 Mg Caper 240 MG PO AC BREAKFAST, #30 CAP 0 Refills Fluconazole (Diflucan) 100 Mg Tab 100 MG PO DAILY for Infection for 10 Days, #10 TAB Fluticasone-Salmeterol Inh (Advair Diskus Inh) 250-50 Mcg/Blist Aer 1 PUFF INH BID, #1 INHALER 0 Refills Rinse mouth after use. Omeprazole Magnesium (Prilosec) 20 Mg Tab 20 MG PO BID for Reflux for 30 Days, #60 TAB 0 Refills Rivaroxaban (Xarelto) 20 Mg Tab 20 MG PO DAILY for Blood Clot Prevention, TAB 0 Refills Discontinued Medications: Methylprednisolone Dosepak (Medrol Dosepak) 4 Mg Dspk 4 MG PO DIRECTED, #1 DSPK 0 Refills Per Pharmacist direction Donna Marquez MD Apr 03, 2017 10:52
[2017-04-03] MEDS ORDERED: OXYGENDME NAS.CANULA (12:00)
--- NOTE | 2017-04-03 12:19 | PD.CARD.PN ---
Subjective Subjective Remarks No events overnight Doing well Heart rates controlled Objective Medications Current Medications Medications (Trade) Dose Ordered Sig/Zoya Route Start Time Stop Time Status Last Admin (NS Flush) 2 ml UNSCH PRN IV FLUSH 04/02/17 08:00 (NS Flush) 2 ml BID IV FLUSH 04/02/17 09:00 04/03/17 07:23 (Tylenol) 650 mg Q4H PRN PO 04/02/17 08:00 04/02/17 08:54 (Zofran Inj) 4 mg Q6H PRN IVP 04/02/17 08:00 (Lovenox Inj) 40 mg Q24H SQ 04/02/17 09:00 04/03/17 07:54 (Narcan Inj) 0.4 mg UNSCH PRN IV PUSH 04/02/17 08:00 (Ramonita-Colace) 1 tab BID PO 04/02/17 09:00 04/03/17 07:54 (Milk Of Magnesia Liq) 30 ml Q12H PRN PO 04/02/17 08:00 (Senokot) 17.2 mg Q12H PRN PO 04/02/17 08:00 (Dulcolax Supp) 10 mg DAILY PRN RECTAL 04/02/17 08:00 (Lactulose Liq) 30 ml DAILY PRN PO 04/02/17 08:00 (Duoneb Neb) 1 ampule QID NEB INH 04/02/17 08:00 04/03/17 11:49 (Albuterol Neb) 2.5 mg Q2HR NEB PRN INH 04/02/17 08:00 (SoluMEDROL INJ) 60 mg Q6H IV PUSH 04/02/17 09:00 04/03/17 07:54 ([place] 5-325 Mg) 1 tab Q4H PRN PO 04/02/17 10:00 04/03/17 06:33 (Morphine Inj) 2 mg Q4H PRN IV PUSH 04/02/17 10:00 (Cardizem Cd) 240 mg DAILY PO 04/02/17 13:45 04/03/17 07:54 (Cardizem Cd) 120 mg HS PO 04/02/17 21:00 04/02/17 20:10 (Xarelto) 20 mg DAILY PO 04/03/17 10:00 04/03/17 10:05 Vital Signs / I&O Vital Signs Date Time Temp Pulse Resp B/P (MAP) Pulse Ox O2 Delivery O2 Flow Rate FiO2 04/03/17 12:01 97.4 75 20 102/56 (71) 96 04/03/17 11:46 2.00 04/03/17 08:00 97.3 82 20 110/72 (85) 92 04/03/17 07:33 96 21 04/03/17 04:05 65 04/03/17 04:00 97.6 70 18 158/72 (100) 95 04/03/17 04:00 Room Air 04/03/17 02:22 17 04/03/17 00:00 97.4 83 16 119/73 (88) 95 04/03/17 00:00 Room Air 04/02/17 23:52 82 04/02/17 20:23 96 04/02/17 20:19 79 04/02/17 20:00 97.5 92 18 140/62 (88) 98 04/02/17 16:00 97.3 82 19 126/69 (88) 96 04/02/17 16:00 100 I/O 04/02/17 04/02/17 04/02/17 04/03/17 04/03/17 04/03/17 07:00 15:00 23:00 07:00 15:00 23:00 Intake Total 100 ml 480 ml 360 ml Output Total 2300 ml Balance 100 ml -1820 ml 360 ml Intake Oral 100 ml 480 ml 360 ml Output Urine Total 2300 ml # Voids 4 # Bowel Movements 1 Physical Exam GENERAL: NAD, AAOx3 SKIN: Warm and dry. HEAD: Atraumatic. Normocephalic. EYES: Pupils equal and round. No scleral icterus. No injection or drainage. ENT: No nasal bleeding or discharge. Mucous membranes pink and moist. NECK: Trachea midline. No JVD. CARDIOVASCULAR: Irregularly irregular RESPIRATORY: No accessory muscle use. Clear to auscultation. Breath sounds equal bilaterally. GASTROINTESTINAL: Abdomen soft, non-tender, nondistended. Hepatic and splenic margins not palpable. MUSCULOSKELETAL: Extremities without clubbing, cyanosis, or edema. No obvious deformities. NEUROLOGICAL: Awake and alert. No obvious cranial nerve deficits. Motor grossly within normal limits. Five out of 5 muscle strength in the arms and legs. Normal speech. PSYCHIATRIC: Appropriate mood and affect; insight and judgment normal. Laboratory Laboratory Tests Test 04/02/17 12:28 04/02/17 20:16 04/03/17 04:00 Total Creatine Kinase 429 U/L 360 U/L Creatine Kinase MB 6.1 NG/ML 7.0 NG/ML Creatine Kinase MB % 1.4 % 1.9 % Troponin I 0.07 NG/ML 0.04 NG/ML White Blood Count 16.8 TH/MM3 Red Blood Count 4.02 MIL/MM3 Hemoglobin 12.0 GM/DL Hematocrit 36.4 % Mean Corpuscular Volume 90.5 FL Mean Corpuscular Hemoglobin 29.8 PG Mean Corpuscular Hemoglobin Concent 32.9 % Red Cell Distribution Width 14.8 % Platelet Count 262 TH/MM3 Mean Platelet Volume 8.3 FL Neutrophils (%) (Auto) 94.4 % Lymphocytes (%) (Auto) 3.6 % Monocytes (%) (Auto) 1.9 % Eosinophils (%) (Auto) 0.0 % Basophils (%) (Auto) 0.1 % Neutrophils # (Auto) 15.9 TH/MM3 Lymphocytes # (Auto) 0.6 TH/MM3 Monocytes # (Auto) 0.3 TH/MM3 Eosinophils # (Auto) 0.0 TH/MM3 Basophils # (Auto) 0.0 TH/MM3 CBC Comment DIFF FINAL Differential Comment Blood Urea Nitrogen 17 MG/DL Creatinine 0.81 MG/DL Random Glucose 154 MG/DL Calcium Level 9.2 MG/DL Magnesium Level 1.5 MG/DL Sodium Level 136 MEQ/L Potassium Level 4.4 MEQ/L Chloride Level 101 MEQ/L Carbon Dioxide Level 28.5 MEQ/L Anion Gap 7 MEQ/L Estimat Glomerular Filtration Rate 93 ML/MIN Assessment and Plan Problem List: (1) Atrial fibrillation ICD Codes: I48.91 - Unspecified atrial fibrillation (2) Elevated troponin I level ICD Codes: R74.8 - Abnormal levels of other serum enzymes Status: Acute (3) Hypertension ICD Codes: I10 - Essential (primary) hypertension (4) Fall ICD Codes: W19.XXXA - Unspecified fall, initial encounter Status: Acute (5) Finger fracture, left ICD Codes: S62.609A - Fracture of unspecified phalanx of unspecified finger, initial encounter for closed fracture Status: Acute Assessment and Plan 1) Mechanical fall, no syncope 2) Musculoskeletal chest pain 3) Afib Now controlled once started on his medications From my standpoint, he can be restarted on Xarelto 4) Minimal elevation of troponin, decreasing Type 2 in nature Most likely due to elevated heart rates 5) Cardiovascularly stable for discharge Follow up with Dr. Zhang Problem Qualifiers (1) Fall: Qualified Codes: W19.XXXA - Unspecified fall, initial encounter (2) Finger fracture, left: Qualified Codes: S62.645A - Nondisplaced fracture of proximal phalanx of left ring finger, initial encounter for closed fracture Getachew Rahman DO Apr 03, 2017 12:19
--- NOTE | 2017-04-03 22:37 | EKG ---
Date Performed: 04/02/2017 Time Performed: 18:22:08 PTAGE: 77 years EKG: ATRIAL FIBRILLATION PATTERN CONSISTENT WITH PULMONARY DISEASE RIGHT VENTRICULAR HYPERTROPHY AND ST-T CHANGE ABNORMAL ECG PREVIOUS TRACING : 04/02/2017 12.20 Since the prior tracing, there has been no significant riley DOCTOR: Minnie Chavarria Interpretating Date/Time 04/03/2017 22:35:22
--- NOTE | 2017-04-03 22:52 | EKG ---
Date Performed: 04/02/2017 Time Performed: 12:20:36 PTAGE: 77 years EKG: Atrial fibrillation with rapid ventricular response Left axis deviation Inferior T wave deanne nges are nonspecific Abnormal ECG PREVIOUS TRACING : 04/02/2017 05.10 Since the prior tracing, there has been no significant riley DOCTOR: Minnie Chavarria Interpretating Date/Time 04/03/2017 22:50:18
== END 2017-04-03 14:34 | disposition home or self-care (01) | DRG 190 ==
LOC: NEPE 04:56 → NEDA 07:55 → N04A 09:19
PROVIDERS: ADMIT Hospitalist; ATTEND Hospitalist
DX: J44.1 Chronic obstructive pulmonary disease with (acute) exacerbation (principal); J96.01 Acute respiratory failure with hypoxia; I48.91 Unspecified atrial fibrillation; Z79.02 Long term (current) use of antithrombotics/antiplatelets; R07.89 Other chest pain; S62.645A Nondisplaced fracture of proximal phalanx of left ring finger, initial encounter for closed fracture; W01.0XXA Fall on same level from slipping, tripping and stumbling without subsequent striking against object, initial encounter; R74.8 Abnormal levels of other serum enzymes; I10 Essential (primary) hypertension; R73.03 Prediabetes; K21.9 Gastro-esophageal reflux disease without esophagitis; Z92.3 Personal history of irradiation; Z92.21 Personal history of antineoplastic chemotherapy; Z85.818 Personal history of malignant neoplasm of other sites of lip, oral cavity, and pharynx; Z85.828 Personal history of other malignant neoplasm of skin; Z89.022 Acquired absence of left finger(s); Z87.891 Personal history of nicotine dependence
CPT/HCPCS: 36600; 71045; 71260; 73130; 74177; 80048; 80053; 81001; 82550; 82552; 82805; 83735; 83880; 84484; 85025; 85610; 85730; 93005; 94618; 94640; 94664; 96361; 96374; 96375; J1650; J2270; J2405; J2930; J3475; J7050; Q9967

== ENCOUNTER 2017-04-19 12:43 | Inpatient (IN) | payer OTHER, MEDICARE ==
[~2017-04-19] VITALS: Ht 190.5 cm; Wt 78.3 kg
[2017-04-19] VITALS (8 sets, daily range): BP systolic 102–136; BP diastolic 60–69; PULSE 89–150; RESP 20–22; TEMP 98.3; O2SAT 94–98
[~2017-04-19 12:43] MED LIST changes: -MEDR4PAK PO; +OXYGENDME NAS.CANULA; +PRED10PA PO
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
[2017-04-19 13:57] LABS: AUTOMATED NEUTROPHIL # 7.1 TH/MM3 (1.8-7.7); BASOPHIL # 0.1 TH/MM3 (0-0.2); BASOPHIL % 0.9 % (0.0-2.0); EOSINOPHIL # 0.2 TH/MM3 (0-0.4); EOSINOPHIL % 2.2 % (0.0-4.0); HEMATOCRIT 38.3 % (39.0-51.0); HEMOGLOBIN 12.6 GM/DL (13.0-17.0); LYMPH % 7.5 % (9.0-44.0); LYMPHOCYTE # 0.7 TH/MM3 (1.0-4.8); MEAN CELL VOLUME 91.1 FL (80.0-100.0); MEAN CORPUSCULAR HEMOGLOBIN 30.1 PG (27.0-34.0); MONO % 10.4 % (0.0-8.0); MONOCYTE # 0.9 TH/MM3 (0-0.9); PLATELET COUNT 249 TH/MM3 (150-450); RED CELL DISTRIBUTION WIDTH 14.7 % (11.6-17.2)
[2017-04-19 14:11] LABS: INTERNATIONAL NORMALIZED RATIO 1.2 RATIO; PROTHROMBIN TIME - PATIENT 11.9 SEC (9.8-11.6)
[2017-04-19 14:12] LABS: BICARBONATE 28.2 MEQ/L (21.0-32.0); CALCIUM 9.3 MG/DL (8.5-10.1); CREATININE 0.88 MG/DL (0.60-1.30)
[2017-04-19] MEDS ORDERED: IOHEXOL 350 MG/ML 10 ML VIAL (for RAD DIAG) IVCONTRAST ONE (15:11)
--- NOTE | 2017-04-19 15:24 | RADRPT ---
EXAM DATE/TIME: 04/19/2017 15:02 [place] COMPARISON: CT THORAX W CONTRAST, April 02, 2017, 6:44. INDICATIONS : Hemoptysis, weakness, and weight loss. IV CONTRAST: 71 cc Omnipaque 350 (iohexol) IV RADIATION DOSE: 7.86 CTDIvol (mGy) MEDICAL HISTORY : Cardiovascular disease. Chronic obstructive pulmonary disease. Throat cancer, diabetes SURGICAL HISTORY : None. ENCOUNTER: Initial ACUITY: 3 days PAIN SCALE: 4/10 LOCATION: Bilateral chest TECHNIQUE: Volumetric scanning of the chest was performed. Using automated exposure control and adjustment of t he mA and/or kV according to patient size, radiation dose was kept as low as reasonably achievable to obtain optimal diagnostic quality images. DICOM format image data is available electronically for review and comparison. Follow-up recommendations for detected pulmonary nodules are based at a minimum on nodule size and pa tient risk factors according to Fleischner Society Guidelines. FINDINGS: There is evidence of stable chronic interstitial fibrosis bilaterally. There has been interval develo pment of new focal alveolar consolidation within left lower lobe consistent with probable lobar pneum onia. Clinical correlation is recommended. No mass or nodules noted. The heart is significantly enlar ged. Coronary calcifications are noted. Calcified pleural plaque is noted along the left hemidiaphrag m. Scattered stable low density lesions are noted within the liver with the largest measuring 1 cm. D egenerative changes and scoliosis of the thoracic spine. CONCLUSION: 1. No alveolar consolidation within left lower lobe consistent with probable lobar pneumonia. Clinica l correlation is recommended. 2. Underlying stable chronic interstitial fibrosis bilaterally. 3. Cardiomegaly and coronary artery calcifications. 4. Calcified pleural plaque along the left hemidiaphragm. 5. Scattered stable low density lesions within the liver. 6. Degenerative changes and scoliosis of the thoracic spine. Toy Tellez MD on April 19, 2017 at 15:16 Board Certified Radiologist. This report was verified electronically.
[2017-04-19] MEDS ORDERED: ACETAMINOPHEN/HYDROcodone 325 MG/5 MG TAB PO PRN (16:45)
[2017-04-19] MEDS ORDERED: NALOXONE HCL 0.4 MG/ML AMP IV PUSH PRN (16:45)
[2017-04-19] MEDS ORDERED: SODIUM CHLORIDE 0.9% FLUSH 10 ML FLUSH IV FLUSH PRN (16:45)
[2017-04-19] MEDS ORDERED: MAGNESIUM HYDROXIDE SUSP 30 ML CUP PO PRN (16:45)
[2017-04-19] MEDS ORDERED: RESP: ALBUTEROL 2.5 MG/IPRATROPIUM 0.5 MG NEB (PRN) NEB (16:45)
[2017-04-19] MEDS ORDERED: ACETAMINOPHEN 325 MG TAB PO PRN ×2 (16:45)
[2017-04-19] MEDS ORDERED: ONDANSETRON HCL 4 MG/2 ML VIAL IVP PRN (16:45)
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
--- NOTE | 2017-04-19 17:48 | MB ---
cc: Guerline Fajardo MD DATE OF CONSULT: 04/19/2017 HISTORY OF PRESENT ILLNESS: This is a 77-year-old white male whom I have known for several years with advanced COPD and pulmonary fibrosis, history of laryngeal cancer, status post radiation therapy, recent hospitalization at the end of last year with aspiration pneumonia and documented aspiration by barium swallow who has had an additional admission in March for atrial fibrillation, rapid ventricular response but had recovered from that. I saw him back in the office earlier this week and really his chief complaint at that point was loss of weight. He had a CT scan while he was in the hospital during that March admission which revealed basilar fibrosis, but no obvious infiltrates or masses. He had an abdominal CT scan as part of a weight loss evaluation and we were told it looked like he had a 4 cm mass in his left base. After leaving from that procedure, he began to have hemoptysis, a teaspoon to a tablespoon. We brought him back into the emergency room for reevaluation in light of the change of status and the findings on the CT of the abdomen and a CT of his chest reveals an infiltrate in the left base, superimposed on fibrosis, probable pneumonia. Other than cough, he denies symptoms until this morning with the hemoptysis. In the emergency room here, he has had a teaspoon or so blood. We did hold his Xarelto. He has had no chest pain. Not aware of any fever. He did not feel particularly ill, although he does have a chronic cough. PAST MEDICAL HISTORY: Recent onset atrial fibrillation, started on Xarelto; COPD, pulmonary fibrosis, hypertension; cancer of the larynx 2014, status post chemotherapy and radiation; history of recurrent aspiration. PAST SURGICAL HISTORY: Surgery on his left femur, right inguinal hernia repair. ALLERGIES: SULFA. MEDICATIONS: Reviewed in the EMR. SOCIAL HISTORY: , living with his . A 40-50 pack year smoking history, quit several years ago. He does drink alcohol daily. REVIEW OF SYSTEMS: Other than that noted above, no nausea, vomiting, no abdominal pain, no swelling in his legs. PHYSICAL EXAMINATION: VITAL SIGNS: Blood pressure 150/70, pulse is 70, irregular, respiratory rate is 18, temperature is 97.6, O2 saturation 98% on 2 liters. HEENT: Sclerae are anicteric. NECK: Firm due to radiation therapy and scarring. No palpable adenopathy. CHEST: Rales with congestion at the left base, dry rales at the right base. HEART: No harsh murmur. No audible S3. ABDOMEN: Soft. EXTREMITIES: No peripheral edema or cyanosis. AVAILABLE LABORATORY DATA: White count is 9000, hemoglobin is 12.6, platelets normal. BUN 21, creatinine 0.88. PT, INR normal. IMAGING STUDIES: CT as noted above. DISCUSSION: Mr. Pickering presents with a sudden change in the CT scan within 2 weeks, very likely aspiration pneumonia. We will start him on broad spectrum antibiotics, obtain sputum and blood cultures, continue aerosol therapy and IV corticosteroids for his underlying chronic obstructive pulmonary disease and fibrosis with exacerbation. At present, bleeding is certainly not excessive. I do not think an emergent bronchoscopy or upper airway exam is needed, but will monitor the bleeding carefully. Also, repeat his barium swallow and if aspiration persists, he simply going to have to be n.p.o., although he has resisted that in the past. Further diagnostic and/or therapeutic intervention will depend on his ongoing clinical course. RMD NOAH Jones/HOMER , 05:13 PM , 05:48 PM
[2017-04-19] MEDS: methylPREDNISolone SOD SUCC 40 MG/1 ML VIAL IV PUSH SCH (18:36)
[2017-04-19] MEDS: AZITHROMYCIN INJ 500 MG in SODIUM CHLOR 0.9% 250 ML INJ 250 ML IV SCH (18:37)
[2017-04-19] MEDS: PIPERACIL-TAZO 3.375 GM PREMIX 50 ML IV SCH (18:37)
[2017-04-19] MEDS: RESP: ALBUTEROL 2.5 MG/IPRATROPIUM 0.5 MG NEB (SCH) NEB (19:56)
[2017-04-19] MEDS ORDERED: RESP: ALBUTEROL 2.5 MG/IPRATROPIUM 0.5 MG NEB (SCH) NEB (20:00)
[2017-04-19] MEDS: BUDESONIDE-FORMOTEROL 160/4.5 MCG INHALER INH SCH (21:32)
[2017-04-19] MEDS: LACTOBACILLUS ACIDOPHILUS TAB PO SCH (21:33)
[2017-04-19] MEDS: DILTIAZEM HCL 60 MG TAB PO SCH (21:33)
[2017-04-19] MEDS: PANTOPRAZOLE SOD 20 MG DELAYED RELEASE TAB PO SCH (21:33)
[2017-04-19] MEDS: SODIUM CHLORIDE 0.9% FLUSH 10 ML FLUSH IV FLUSH SCH (21:34)
[2017-04-20] VITALS (9 sets, daily range): BP systolic 96–121; BP diastolic 65–76; PULSE 70–117; RESP 16–18; TEMP 97–97.6; O2SAT 93–99
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
[2017-04-20] MEDS: PIPERACIL-TAZO 3.375 GM PREMIX 50 ML IV SCH ×4 (01:24→17:32)
[2017-04-20] MEDS: methylPREDNISolone SOD SUCC 40 MG/1 ML VIAL IV PUSH SCH ×3 (02:12→17:33)
[2017-04-20] MEDS: DILTIAZEM-CD 240 MG CAP ER PO SCH (05:12)
[2017-04-20 07:22] LABS: AUTOMATED NEUTROPHIL # 6.7 TH/MM3 (1.8-7.7); BASOPHIL % 0.6 % (0.0-2.0); EOSINOPHIL % 0.1 % (0.0-4.0); HEMATOCRIT 37.8 % (39.0-51.0); HEMOGLOBIN 12.6 GM/DL (13.0-17.0); LYMPH % 6.8 % (9.0-44.0); LYMPHOCYTE # 0.5 TH/MM3 (1.0-4.8); MEAN CELL VOLUME 90.1 FL (80.0-100.0); MEAN CORPUSCULAR HGB CONC 33.2 % (32.0-36.0); MEAN PLATELET VOLUME 7.6 FL (7.0-11.0); MONO % 2.3 % (0.0-8.0); MONOCYTE # 0.2 TH/MM3 (0-0.9); NEUT % 90.2 % (16.0-70.0); PLATELET COUNT 254 TH/MM3 (150-450); RED BLOOD COUNT 4.19 MIL/MM3 (4.50-5.90); RED CELL DISTRIBUTION WIDTH 14.6 % (11.6-17.2); WHITE BLOOD COUNT 7.4 TH/MM3 (4.0-11.0)
[2017-04-20] MEDS: RESP: ALBUTEROL 2.5 MG/IPRATROPIUM 0.5 MG NEB (SCH) NEB ×3 (07:52→18:59)
[2017-04-20 07:53] LABS: ALBUMIN 2.5 GM/DL (3.4-5.0); ALT (GPT) 89 U/L (12-78); AST (GOT) 56 U/L (15-37); BICARBONATE 29.7 MEQ/L (21.0-32.0); BLOOD UREA NITROGEN 20 MG/DL (7-18); CALCIUM 8.6 MG/DL (8.5-10.1); CHLORIDE 102 MEQ/L (98-107); CREATININE 0.91 MG/DL (0.60-1.30); GLOMERULAR FILTRATION RATE 81 ML/MIN (>89); GLUCOSE,RANDOM 178 MG/DL (74-106); SODIUM (NA) 138 MEQ/L (136-145)
[2017-04-20 07:54] LABS: ALKALINE PHOSPHATASE 75 U/L (45-117); TOTAL BILIRUBIN ADULT 0.3 MG/DL (0.2-1.0); TOTAL PROTEIN 6.8 GM/DL (6.4-8.2)
[2017-04-20] MEDS: LACTOBACILLUS ACIDOPHILUS TAB PO SCH ×2 (08:20→21:32)
[2017-04-20] MEDS: SODIUM CHLORIDE 0.9% FLUSH 10 ML FLUSH IV FLUSH SCH ×2 (08:20→21:00)
[2017-04-20] MEDS: PANTOPRAZOLE SOD 20 MG DELAYED RELEASE TAB PO SCH ×2 (08:20→21:00)
[2017-04-20] MEDS: BUDESONIDE-FORMOTEROL 160/4.5 MCG INHALER INH SCH ×2 (08:23→21:32)
--- NOTE | 2017-04-20 10:18 | RADRPT ---
EXAM DATE/TIME: 04/20/2017 08:36 [place] COMPARISON: No previous studies available for comparison. INDICATIONS : Aspiration, spitting up blood. FLUORO TIME: 1.3 minutes IMAGE COUNT: 10 CONTRAST: 1. Liquid E-Z Paque Barium Sulfate (60% w/v, 41% w.w) MEDICAL HISTORY : Cardiovascular disease. Chronic obstructive pulmonary disease. larangeal cancer, radiation, diab etes SURGICAL HISTORY : None. ENCOUNTER: Initial ACUITY: 1 day PAIN SCORE: 0/10 LOCATION: Bilateral neck FINDINGS: At the beginning of the study swallow was observed with thin barium. There was aspiration into the up per trachea accompanied by mild cough response. No filling defects or ulcerations are seen in the esophagus. There is a small sliding hiatal hernia. There is an esophageal motility disorder. CONCLUSION: 1. Examination positive for aspiration. 2. Small sliding hiatal hernia. 3. Moderate nonspecific esophageal motility disorder. Salazar Everett MD on April 20, 2017 at 10:14 Board Certified Radiologist. This report was verified electronically.
--- NOTE | 2017-04-20 11:19 | EKG ---
Date Performed: 04/19/2017 Time Performed: 13:15:55 PTAGE: 77 years EKG: ATRIAL FIBRILLATION WITH RAPID VENTRICULAR RESPONSE INDETERMINATE AXIS INCOMPLETE RIGHT BUN DLE BRANCH BLOCK ABNORMAL ECG PREVIOUS TRACING : 04/02/2017 18.22 Since the previous tracing, no significant change noted DOCTOR: Cedric Nuno Interpretating Date/Time 04/20/2017 11:15:25
--- NOTE | 2017-04-20 13:07 | PD.CARD.PN ---
Subjective Subjective Remarks No events overnight Still with hemoptysis Objective Medications Current Medications Medications (Trade) Dose Ordered Sig/Zoya Route Start Time Stop Time Status Last Admin (NS Flush) 2 ml UNSCH PRN IV FLUSH 04/19/17 16:45 (NS Flush) 2 ml BID IV FLUSH 04/19/17 21:00 04/20/17 08:20 (Tylenol) 650 mg Q4H PRN PO 04/19/17 16:45 (Zofran Inj) 4 mg Q6H PRN IVP 04/19/17 16:45 (Tylenol) 650 mg Q6H PRN PO 04/19/17 16:45 ([place] 5-325 Mg) 1 tab Q4H PRN PO 04/19/17 16:45 (Narcan Inj) 0.4 mg UNSCH PRN IV PUSH 04/19/17 16:45 (Milk Of Magnesia Liq) 30 ml Q12H PRN PO 04/19/17 16:45 (Duoneb Neb) 1 ampule Q2HR NEB PRN NEB 04/19/17 16:45 (Duoneb Neb) 1 ampule TID NEB NEB 04/19/17 20:00 04/19/17 19:56 (SoluMEDROL INJ) 40 mg Q8H IV PUSH 04/19/17 18:00 04/20/17 08:20 Piperacillin Sod/ Tazobactam Sod 50 ml @ 100 mls/hr Q6H IV 04/19/17 18:00 04/20/17 12:00 Azithromycin 500 mg/Sodium Chloride 250 ml @ 250 mls/hr Q24H IV 04/19/17 18:00 04/19/17 18:37 (Lactinex) 1 tab Q12HR PO 04/19/17 21:00 04/20/17 08:20 (Cardizem Cd) 240 mg AC BREAKFAST PO 04/20/17 07:00 04/20/17 05:12 (Cardizem) 120 mg HS PO 04/19/17 21:00 04/19/17 21:33 (Symbicort 160-4.5 Mcg Inh) 2 puff BID INH 04/19/17 21:00 04/20/17 08:23 (Protonix) 20 mg BID PO 04/19/17 21:00 3/16/18 08:20 Vital Signs / I&O Vital Signs Date Time Temp Pulse Resp B/P (MAP) Pulse Ox O2 Delivery O2 Flow Rate FiO2 04/20/17 12:00 97.1 83 16 107/68 (81) 94 04/20/17 08:00 97.0 70 18 102/73 (83) 97 04/20/17 07:32 Room Air 04/20/17 07:32 78 04/20/17 04:00 97.5 85 17 96/76 (83) 95 04/20/17 04:00 Room Air 04/20/17 04:00 117 04/20/17 00:06 97.6 91 18 96/65 (75) 96 04/20/17 00:00 Room Air 04/20/17 00:00 83 04/19/17 23:00 04/19/17 22:43 99 04/19/17 22:00 Room Air 04/19/17 20:03 95 21 04/19/17 19:15 108 20 94 Room Air 04/19/17 19:13 108 20 104/60 (75) 94 Room Air 04/19/17 17:00 89 22 102/69 (80) 94 Room Air 04/19/17 14:23 104 20 136/62 (86) 98 Nasal Cannula 2.00 04/19/17 13:25 20 96 Nasal Cannula 2.00 04/19/17 13:18 130 20 135/65 (88) 95 Room Air I/O 04/19/17 04/19/17 04/19/17 04/20/17 04/20/17 04/20/17 07:00 15:00 23:00 07:00 15:00 23:00 Intake Total 1051 ml 0 ml Balance 1051 ml 0 ml Intake Oral 701 ml IV Total 350 ml 0 ml # Voids 2 # Bowel Movements 0 Physical Exam GENERAL: NAD, AAOx3 SKIN: Warm and dry. HEAD: Atraumatic. Normocephalic. EYES: Pupils equal and round. No scleral icterus. No injection or drainage. ENT: No nasal bleeding or discharge. Mucous membranes pink and moist. NECK: Trachea midline. No JVD. CARDIOVASCULAR: Irregularly irregular RESPIRATORY: No accessory muscle use. Clear to auscultation. Breath sounds equal bilaterally. GASTROINTESTINAL: Abdomen soft, non-tender, nondistended. Hepatic and splenic margins not palpable. MUSCULOSKELETAL: Extremities without clubbing, cyanosis, or edema. No obvious deformities. NEUROLOGICAL: Awake and alert. No obvious cranial nerve deficits. Motor grossly within normal limits. Five out of 5 muscle strength in the arms and legs. Normal speech. PSYCHIATRIC: Appropriate mood and affect; insight and judgment normal. Laboratory Laboratory Tests Test 04/19/17 13:30 04/20/17 07:11 White Blood Count 9.0 TH/MM3 7.4 TH/MM3 Red Blood Count 4.20 MIL/MM3 4.19 MIL/MM3 Hemoglobin 12.6 GM/DL 12.6 GM/DL Hematocrit 38.3 % 37.8 % Mean Corpuscular Volume 91.1 FL 90.1 FL Mean Corpuscular Hemoglobin 30.1 PG 30.0 PG Mean Corpuscular Hemoglobin Concent 33.0 % 33.2 % Red Cell Distribution Width 14.7 % 14.6 % Platelet Count 249 TH/MM3 254 TH/MM3 Mean Platelet Volume 8.0 FL 7.6 FL Neutrophils (%) (Auto) 79.0 % 90.2 % Lymphocytes (%) (Auto) 7.5 % 6.8 % Monocytes (%) (Auto) 10.4 % 2.3 % Eosinophils (%) (Auto) 2.2 % 0.1 % Basophils (%) (Auto) 0.9 % 0.6 % Neutrophils # (Auto) 7.1 TH/MM3 6.7 TH/MM3 Lymphocytes # (Auto) 0.7 TH/MM3 0.5 TH/MM3 Monocytes # (Auto) 0.9 TH/MM3 0.2 TH/MM3 Eosinophils # (Auto) 0.2 TH/MM3 0.0 TH/MM3 Basophils # (Auto) 0.1 TH/MM3 0.0 TH/MM3 CBC Comment DIFF FINAL DIFF FINAL Differential Comment Prothrombin Time 11.9 SEC Prothromb Time International Ratio 1.2 RATIO Activated Partial Thromboplast Time 33.3 SEC Blood Urea Nitrogen 21 MG/DL 20 MG/DL Creatinine 0.88 MG/DL 0.91 MG/DL Random Glucose 102 MG/DL 178 MG/DL Calcium Level 9.3 MG/DL 8.6 MG/DL Sodium Level 137 MEQ/L 138 MEQ/L Potassium Level 4.6 MEQ/L 4.6 MEQ/L Chloride Level 100 MEQ/L 102 MEQ/L Carbon Dioxide Level 28.2 MEQ/L 29.7 MEQ/L Anion Gap 9 MEQ/L 6 MEQ/L Estimat Glomerular Filtration Rate 84 ML/MIN 81 ML/MIN Total Protein 6.8 GM/DL Albumin 2.5 GM/DL Alkaline Phosphatase 75 U/L Aspartate Amino Transf (AST/SGOT) 56 U/L Alanine Aminotransferase (ALT/SGPT) 89 U/L Total Bilirubin 0.3 MG/DL Imaging Last 24 hours Impressions Esophagus X-Ray 04/20/17 0000 Signed Impressions: Service Date/Time: Thursday, April 20, 2017 08:36 - CONCLUSION: 1. Examination positive for aspiration. 2. Small sliding hiatal hernia. 3. Moderate nonspecific esophageal motility disorder. Salazar Everett MD Assessment and Plan Problem List: (1) Hemoptysis ICD Codes: R04.2 - Hemoptysis (2) Atrial fibrillation ICD Codes: I48.91 - Unspecified atrial fibrillation (3) Hypertension ICD Codes: I10 - Essential (primary) hypertension (4) COPD exacerbation ICD Codes: J44.1 - Chronic obstructive pulmonary disease with (acute) exacerbation (5) Aspiration pneumonia ICD Codes: J69.0 - Pneumonitis due to inhalation of food and vomit Assessment and Plan 1) Afib Controlled on Cardizem 2) Hemoptysis Xarelto stopped 3) No further cardiovascular work up Will see PRN, call with questions If possible, would restart Xarelto, or at least ASA 81mg for Afib upon discharge Getachew Rahman DO Apr 20, 2017 13:07
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
[2017-04-20] MEDS: AZITHROMYCIN INJ 500 MG in SODIUM CHLOR 0.9% 250 ML INJ 250 ML IV SCH (18:00)
--- NOTE | 2017-04-20 18:48 | HHI.PR ---
Subjective Remarks Nursing denies any deterioration since last night. Patient says his breathing is much better. Says he is agreeable to PEG tube knowing the aspiration risks. Objective Vital Signs Date Time Temp Pulse Resp B/P (MAP) Pulse Ox O2 Delivery O2 Flow Rate FiO2 04/20/17 16:07 Room Air 04/20/17 16:00 97.2 90 16 121/76 (91) 99 04/20/17 15:03 77 04/20/17 12:00 97.1 83 16 107/68 (81) 94 04/20/17 08:00 97.0 70 18 102/73 (83) 97 04/20/17 07:32 Room Air 04/20/17 07:32 78 04/20/17 04:00 97.5 85 17 96/76 (83) 95 04/20/17 04:00 Room Air 04/20/17 04:00 117 04/20/17 00:06 97.6 91 18 96/65 (75) 96 04/20/17 00:00 Room Air 04/20/17 00:00 83 04/19/17 23:00 04/19/17 22:43 99 04/19/17 22:00 Room Air 04/19/17 20:03 95 21 04/19/17 19:15 108 20 94 Room Air 04/19/17 19:13 108 20 104/60 (75) 94 Room Air I/O 04/19/17 04/19/17 04/19/17 04/20/17 04/20/17 04/20/17 07:00 15:00 23:00 07:00 15:00 23:00 Intake Total 1051 ml 0 ml Balance 1051 ml 0 ml Intake Oral 701 ml IV Total 350 ml 0 ml # Voids 2 # Bowel Movements 0 Result Diagram: 04/20/17 0711 04/20/17 0711 Objective Remarks Lungs are clear bilaterally, unlabored breathing, on room air No slurred speech A/P Assessment and Plan 77 years old man with Aspiration pneumonia CT abdomen noted and review by me with finding of no alveolar consolidation within left lower lobe consistent with probable lobe PNA d/t to history of Laryngeal Cancer V Zosyn and azithromycin IV pending culture reports Obtain pro calcitonin, if negative can discontinue antibiotics, positive can consider discharge with clindamycin or metronidazole Discussed case with GI, will consult for possible PEG tube placement as esophagram is showing aspiration, consulting speech therapy as well for further recommendations COPD exacerbation Solu Medrol (taper accordingly), Symbicort, Spiriva, Duo Neb schedule and PRN Continue with Above antibiotics Laryngeal cancer 2/2 aspiration PNA, will check Esophagram Outpatient follow up with Oncology Hemoptysis self limited - Appreciate input from Pulmonary medicine Hold OAC History of PAF Hold OAC per cardiology and resume others medications including Cardizem DVT prophylaxis: B-SCDs Code Status Full code Discussed Condition With Patient, ED physician, Dr Milton Fajardo Discharge Planning anticipate discharge once cleared w/ GI after potential peg tube placement and has transitioned to po steroids and (abx if warranted per procalctionin) with restarting xarelto or ASA upon discharge per cards Basil Dawson MD Apr 20, 2017 18:48
[2017-04-20] MEDS: DILTIAZEM HCL 60 MG TAB PO SCH (21:32)
[2017-04-21] VITALS (8 sets, daily range): BP systolic 94–117; BP diastolic 60–82; PULSE 75–137; RESP 19–20; TEMP 97.1–97.8; O2SAT 95–98
[2017-04-21] MEDS: PIPERACIL-TAZO 3.375 GM PREMIX 50 ML IV SCH ×5 (00:21→23:47)
[2017-04-21] MEDS: methylPREDNISolone SOD SUCC 40 MG/1 ML VIAL IV PUSH SCH ×2 (00:21→09:22)
[2017-04-21] MEDS: DILTIAZEM-CD 240 MG CAP ER PO SCH (05:51)
[2017-04-21] MEDS: RESP: ALBUTEROL 2.5 MG/IPRATROPIUM 0.5 MG NEB (SCH) NEB ×3 (08:59→20:00)
[2017-04-21] MEDS: LACTOBACILLUS ACIDOPHILUS TAB PO SCH ×2 (09:21→21:31)
[2017-04-21] MEDS: PANTOPRAZOLE SOD 20 MG DELAYED RELEASE TAB PO SCH ×2 (09:21→21:31)
[2017-04-21] MEDS: BUDESONIDE-FORMOTEROL 160/4.5 MCG INHALER INH SCH ×2 (09:22→21:33)
[2017-04-21] MEDS: SODIUM CHLORIDE 0.9% FLUSH 10 ML FLUSH IV FLUSH SCH ×2 (09:22→21:33)
[2017-04-21] MEDS ORDERED: SODIUM CHLOR 0.9% 250 ML INJ 250 ML IV ONE (09:45)
--- NOTE | 2017-04-21 10:21 | HHI.PR ---
Subjective Remarks Patient states feels excellent. Denies cp/sob. Denies hemoptysis. Afebrile. Objective Vitals Vital Signs Date Time Temp Pulse Resp B/P (MAP) Pulse Ox O2 Delivery O2 Flow Rate FiO2 04/21/17 04:00 Room Air 04/21/17 04:00 97.3 83 20 94/60 (71) 95 04/21/17 04:00 81 04/21/17 00:00 75 04/21/17 00:00 Room Air 04/21/17 00:00 97.1 87 20 95/63 (74) 96 04/20/17 20:00 101 04/20/17 20:00 97.1 106 16 117/75 (89) 93 04/20/17 20:00 Room Air 04/20/17 16:07 Room Air 04/20/17 16:00 97.2 90 16 121/76 (91) 99 04/20/17 16:00 85 04/20/17 15:03 77 04/20/17 12:00 97.1 83 16 107/68 (81) 94 I/O 04/20/17 04/20/17 04/20/17 04/21/17 04/21/17 04/21/17 07:00 15:00 23:00 07:00 15:00 23:00 Intake Total 1051 ml 0 ml 780 ml 290 ml Balance 1051 ml 0 ml 780 ml 290 ml Intake Oral 701 ml 780 ml 240 ml IV Total 350 ml 0 ml 50 ml # Voids 2 2 3 # Bowel Movements 0 0 0 Result Diagram: 04/20/17 0711 04/20/17 0711 Imaging Last Impressions Esophagus X-Ray 04/20/17 0000 Signed Impressions: Service Date/Time: Thursday, April 20, 2017 08:36 - CONCLUSION: 1. Examination positive for aspiration. 2. Small sliding hiatal hernia. 3. Moderate nonspecific esophageal motility disorder. Salazar Everett MD Chest CT 04/19/17 0000 Signed Impressions: Service Date/Time: April 15:02 - CONCLUSION: 1. No alveolar consolidation within left lower lobe consistent with probable lobar pneumonia. Clinical correlation is recommended. 2. Underlying stable chronic interstitial fibrosis bilaterally. 3. Cardiomegaly and coronary artery calcifications. 4. Calcified pleural plaque along the left hemidiaphragm. 5. Scattered stable low density lesions within the liver. 6. Degenerative changes and scoliosis of the thoracic spine. Toy Tellez MD Objective Remarks AAOx3 S1S2 (+) Irrgularly irregular Clear lungs BL, unlabored breathing Abdomen soft, nt, nd no edema in lower extemities Medications and IVs Current Medications Medications (Trade) Dose Ordered Sig/Zoya Route Start Time Stop Time Status Last Admin (NS Flush) 2 ml UNSCH PRN IV FLUSH 04/19/17 16:45 (NS Flush) 2 ml BID IV FLUSH 04/19/17 21:00 04/21/17 09:22 (Tylenol) 650 mg Q4H PRN PO 04/19/17 16:45 (Zofran Inj) 4 mg Q6H PRN IVP 04/19/17 16:45 (Tylenol) 650 mg Q6H PRN PO 04/19/17 16:45 ([place] 5-325 Mg) 1 tab Q4H PRN PO 04/19/17 16:45 (Narcan Inj) 0.4 mg UNSCH PRN IV PUSH 04/19/17 16:45 (Milk Of Magnesia Liq) 30 ml Q12H PRN PO 04/19/17 16:45 (Duoneb Neb) 1 ampule Q2HR NEB PRN NEB 04/19/17 16:45 (Duoneb Neb) 1 ampule TID NEB NEB 04/19/17 20:00 04/21/17 08:59 (SoluMEDROL INJ) 40 mg Q8H IV PUSH 04/19/17 18:00 04/21/17 09:22 Piperacillin Sod/ Tazobactam Sod 50 ml @ 100 mls/hr Q6H IV 04/19/17 18:00 04/21/17 05:49 Azithromycin 500 mg/Sodium Chloride 250 ml @ 250 mls/hr Q24H IV 04/19/17 18:00 04/20/17 18:00 (Lactinex) 1 tab Q12HR PO 04/19/17 21:00 04/21/17 09:21 (Cardizem Cd) 240 mg AC BREAKFAST PO 04/20/17 07:00 04/21/17 05:51 (Cardizem) 120 mg HS PO 04/19/17 21:00 04/20/17 21:32 (Symbicort 160-4.5 Mcg Inh) 2 puff BID INH 04/19/17 21:00 04/21/17 09:22 (Protonix) 20 mg BID PO 04/19/17 21:00 04/21/17 09:21 Sodium Chloride 250 ml @ 250 mls/hr BOLUS ONCE IV 04/21/17 09:45 04/21/17 10:44 UNV Urinary Catheter: No Vascular Central Line Catheter: No A/P Problem List: (1) Aspiration pneumonia ICD Code: J69.0 - Pneumonitis due to inhalation of food and vomit Status: Acute Plan: Seen on CT chest as described above and reviewed by me. Continue IV antibiotics - Zosyn and Azithromycin GI consulted forPEG placement as esophagogram is showing aspiration. Patient EGD and PEG placement today. (2) Hemoptysis ICD Code: R04.2 - Hemoptysis Status: Resolved Plan: Pulmonary consulted. Self limited. Due to pna (3) COPD exacerbation ICD Code: J44.1 - Chronic obstructive pulmonary disease with (acute) exacerbation Plan: DC Solumedrol and start steroid taper. Continue Symbicort, Spiriva, Duo Neb schedule and PRN (4) Atrial fibrillation ICD Code: I48.91 - Unspecified atrial fibrillation Plan: Holding OAC per cardiology. Continue Cardizem - Will hold if patient hypotensive. rate controlled. (5) Hypertension ICD Code: I10 - Essential (primary) hypertension Plan: Hold antihypertensive medications since bp low. (6) Hypotension ICD Code: I95.9 - Hypotension, unspecified Plan: Hold bp medications - resume once bp better. Will Rx 250 ml of normal saline bolus IV. 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 has had 2 egd and dilatation done in past. 11/2016 EGD and dilatation done with finding candidiasis. esophagram showed aspiration, esophageal dysmotility. ST recommends honey thick liquid and mech soft diet but pt wants PEG tube. GI consulted - for PEG today. (8) Moderate protein-calorie malnutrition ICD Code: E44.0 - Moderate protein-calorie malnutrition Status: Acute Plan: Patient with weight loss due to dysphagia. Albumin 2.5. Consult dietitian for recommendations on Peg feeding. Assessment and Plan DVt prophylaxis: Scd's, No chemoprophylaxis for now given hemoptysis. Will place on heparin SQ if no further hemoptysis. Discharge Planning Pending PEG placement, resolution of hypotension. Problem Qualifiers (1) Aspiration pneumonia: Qualified Codes: J69.0 - Pneumonitis due to inhalation of food and vomit (2) Atrial fibrillation: Qualified Codes: I48.2 - Chronic atrial fibrillation (3) Hypertension: Qualified Codes: I10 - Essential (primary) hypertension (4) Hypotension: Qualified Codes: I95.9 - Hypotension, unspecified Clyde Robertson MD Apr 21, 2017 10:21
[2017-04-21] MEDS ORDERED: IOHEXOL 350 MG/ML 10 ML VIAL (for RAD DIAG) IVCONTRAST ONE (11:45)
--- NOTE | 2017-04-21 12:03 | RADRPT ---
EXAM DATE/TIME: 04/21/2017 11:32 [place] COMPARISON: ESOPHAGRAM, April 20, 2017, 8:36. CT THORAX W CONTRAST, April 19, 2017, 15:02. INDICATIONS : Hemoptysis, history of throat cancer. IV CONTRAST: 70 cc Omnipaque 350 (iohexol) IV RADIATION DOSE: 23.30 CTDIvol (mGy) MEDICAL HISTORY : Carcinoma, tonsillar. Cardiovascular disease Gastroesophageal reflux disease. SURGICAL HISTORY : Radiation and chemotherapy to throat. ENCOUNTER: Initial ACUITY: 1 week PAIN SCALE: 0/10 LOCATION: neck TECHNIQUE: Volumetric scanning of the neck was performed. Using automated exposure control and adjustment of th e mA and/or kV according to patient size, radiation dose was kept as low as reasonably achievable to obtain optimal diagnostic quality images. DICOM format image data is available electronically for r eview and comparison. FINDINGS: There is extensive atherosclerosis identified throughout the vascular structures with significant ath erosclerosis identified within the bilateral carotid bulbs. No appears to be significant narrowing of the lumen of the right proximal internal carotid artery. NASOPHARYNX: The nasopharyngeal airway has a normal configuration. No mucosal thickening or mass is seen. OROPHARYNX: The intrinsic muscles of the tongue are symmetric. The tonsillar pillars are intact. The prevertebr al soft tissues are not thickened. LARYNX: The supraglottic, glottic, and infraglottic structures are intact. PARAPHARYNGEAL: The parapharyngeal space is intact. SALIVARY GLANDS: The parotid and submandibular glands are intact. LYMPH NODES: No enlarged or necrotic-appearing nodes. THYROID: Homogeneous enhancement without evidence of nodule. BONES: Degenerative changes. CONCLUSION: No abnormality seen to account for the patient's clinical presentation. There is extensive atheroscle rosis identified within the carotid arteries with luminal narrowing identified within the [facility].. Aracelis Soto MD on April 21, 2017 at 11:56 Board Certified Radiologist. This report was verified electronically.
[2017-04-21] MEDS ORDERED: predniSONE 20 MG TAB PO SCH (13:00)
--- NOTE | 2017-04-21 13:28 | HHI.GIFU ---
Subjective Remarks Resting in the bed Alert oriented no acute distress in room Afebrile (Lizeth Barcenas SIXTO) Objective Vitals I&O Vital Signs Date Time Temp Pulse Resp B/P (MAP) Pulse Ox O2 Delivery O2 Flow Rate FiO2 04/21/17 12:00 97.8 137 20 117/82 (94) 95 04/21/17 08:00 Room Air 04/21/17 08:00 97.2 104 20 116/65 (82) 95 04/21/17 08:00 93 04/21/17 04:00 Room Air 04/21/17 04:00 97.3 83 20 94/60 (71) 95 04/21/17 04:00 81 04/21/17 00:00 75 04/21/17 00:00 Room Air 04/21/17 00:00 97.1 87 20 95/63 (74) 96 04/20/17 20:00 101 04/20/17 20:00 97.1 106 16 117/75 (89) 93 04/20/17 20:00 Room Air 04/20/17 16:07 Room Air 04/20/17 16:00 97.2 90 16 121/76 (91) 99 04/20/17 16:00 85 04/20/17 15:03 77 I/O 04/20/17 04/20/17 04/20/17 04/21/17 04/21/17 04/21/17 07:00 15:00 23:00 07:00 15:00 23:00 Intake Total 1051 ml 0 ml 780 ml 290 ml Balance 1051 ml 0 ml 780 ml 290 ml Intake Oral 701 ml 780 ml 240 ml IV Total 350 ml 0 ml 50 ml # Voids 2 2 3 # Bowel Movements 0 0 0 Laboratory Date/Time Source Procedure Growth Status 04/19/17 18:30 Blood Peripheral Aerobic Blood Culture - Preliminary NO GROWTH IN 2 DAYS Resulted 04/19/17 18:30 Blood Peripheral Anaerobic Blood Culture - Preliminary NO GROWTH IN 2 DAYS Resulted Imaging Last Impressions Neck CT 04/21/17 0000 Signed Impressions: Service Date/Time: Friday, April 21, 2017 11:32 - CONCLUSION: No abnormality seen to account for the patient's clinical presentation. There is extensive atherosclerosis identified within the carotid arteries with luminal narrowing identified within the proximal right internal carotid artery.. Aracelis Soto MD Esophagus X-Ray 04/20/17 0000 Signed Impressions: Service Date/Time: Thursday, April 20, 2017 08:36 - CONCLUSION: 1. Examination positive for aspiration. 2. Small sliding hiatal hernia. 3. Moderate nonspecific esophageal motility disorder. Salazar Everett MD Chest CT 04/19/17 0000 Signed Impressions: Service Date/Time: April 15:02 - CONCLUSION: 1. No alveolar consolidation within left lower lobe consistent with probable lobar pneumonia. Clinical correlation is recommended. 2. Underlying stable chronic interstitial fibrosis bilaterally. 3. Cardiomegaly and coronary artery calcifications. 4. Calcified pleural plaque along the left hemidiaphragm. 5. Scattered stable low density lesions within the liver. 6. Degenerative changes and scoliosis of the thoracic spine. Toy Tellez MD Physical Exam HEENT: Pupils round and reactive to light; normocephalic; atraumatic; NECK: Neck is supple, CHEST: Chest is clear, no obvious rhonchi CARDIAC: Regular rate and rhythm ABDOMEN: Soft, nondistended, nontender; no hepatosplenomegaly; bowel sounds are present in all four quadrants. EXTREMITIES: No clubbing, cyanosis, or edema. SKIN: Normal; no rash; no jaundice. GRINDING AND POLISHING LABORER: No focal deficits; alert and oriented times three. 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 has had 2 egd and dilatation done in past. 11/2016 EGD and dilatation done with finding candidiasis. esophagram showed aspiration, esophageal dysmotility. ROBOTICS TECHNICIAN recommending honey thick liquid and mech soft diet but pt wants PEG tube. - weight loss - d/t decreased intake vs unk etiology. pt refused colonoscopy. says he had recent colonoscopy that was normal. 2017 resting in the bed, discussed reschedule for EGD PEG placement Sunday morning. Heart healthy diet ordered for today. Denies any acute abdominal pain nausea or vomiting. PLAN - Heart healthy diet today and tomorrow. Monitor swallow , and thickened liquids - EGD and PEG tube placement Sunday - obtain consent Sunday - NPO after midnight Sunday night - on azithromycin, zosyn - Bowel regimen as needed pt seen by myself and Dr Torres and this note is on his behalf (Lizeth Barcenas) Physician Comments PEG placement postponded till sunday, will advance diet meanwhile. (Mariana Torres MD) Lizeth Barcenas Apr 21, 2017 13:28 Mariana Torres MD Apr 21, 2017 22:47
[2017-04-21] MEDS: AZITHROMYCIN INJ 500 MG in SODIUM CHLOR 0.9% 250 ML INJ 250 ML IV SCH (18:00)
[2017-04-21] MEDS: predniSONE 20 MG TAB PO SCH (21:32)
[2017-04-22] VITALS (9 sets, daily range): BP systolic 106–144; BP diastolic 68–94; PULSE 89–118; RESP 16–20; TEMP 97.1–98; O2SAT 94–100
[2017-04-22] MEDS: PIPERACIL-TAZO 3.375 GM PREMIX 50 ML IV SCH ×4 (05:52→23:48)
[2017-04-22] MEDS: RESP: ALBUTEROL 2.5 MG/IPRATROPIUM 0.5 MG NEB (SCH) NEB ×3 (08:08→20:00)
[2017-04-22] MEDS: SODIUM CHLORIDE 0.9% FLUSH 10 ML FLUSH IV FLUSH SCH ×2 (08:50→20:51)
[2017-04-22] MEDS: LACTOBACILLUS ACIDOPHILUS TAB PO SCH ×2 (08:50→20:49)
[2017-04-22] MEDS: predniSONE 20 MG TAB PO SCH ×2 (08:50→20:49)
[2017-04-22] MEDS: BUDESONIDE-FORMOTEROL 160/4.5 MCG INHALER INH SCH ×2 (08:50→20:48)
[2017-04-22] MEDS: PANTOPRAZOLE SOD 20 MG DELAYED RELEASE TAB PO SCH ×2 (08:50→20:49)
--- NOTE | 2017-04-22 12:47 | HHI.GIFU ---
Subjective Remarks Resting in bed, at bedside. Eager for PEG tube to be placed. Dislikes honey thick liquid. (Marla Nuñez) Objective Vitals I&O Vital Signs Date Time Temp Pulse Resp B/P (MAP) Pulse Ox O2 Delivery O2 Flow Rate FiO2 04/22/17 08:00 Room Air 04/22/17 08:00 98.0 109 20 108/76 (87) 95 04/22/17 08:00 99 04/22/17 04:00 97.1 91 19 119/92 (101) 96 04/22/17 03:56 110 04/22/17 00:10 97.8 99 18 106/86 (93) 99 04/21/17 23:53 103 04/21/17 21:30 Room Air 04/21/17 20:10 108 04/21/17 20:00 97.3 122 19 114/66 (82) 98 04/21/17 16:00 97.3 99 20 108/61 (77) 97 I/O 04/21/17 04/21/17 04/21/17 04/22/17 04/22/17 04/22/17 07:00 15:00 23:00 07:00 15:00 23:00 Intake Total 290 ml 480 ml 900 ml Output Total 600 ml Balance 290 ml 480 ml 300 ml Intake Oral 240 ml 480 ml 800 ml IV Total 50 ml 100 ml Output Urine Total 600 ml # Voids 3 # Bowel Movements 0 Laboratory Date/Time Source Procedure Growth Status 04/19/17 18:30 Blood Peripheral Aerobic Blood Culture - Preliminary NO GROWTH IN 3 DAYS Resulted 04/19/17 18:30 Blood Peripheral Anaerobic Blood Culture - Preliminary NO GROWTH IN 3 DAYS Resulted Imaging Last Impressions Neck CT 04/21/17 0000 Signed Impressions: Service Date/Time: Friday, April 21, 2017 11:32 - CONCLUSION: No abnormality seen to account for the patient's clinical presentation. There is extensive atherosclerosis identified within the carotid arteries with luminal narrowing identified within the proximal right internal carotid artery.. Aracelis Soto MD Esophagus X-Ray 04/20/17 0000 Signed Impressions: Service Date/Time: Thursday, April 20, 2017 08:36 - CONCLUSION: 1. Examination positive for aspiration. 2. Small sliding hiatal hernia. 3. Moderate nonspecific esophageal motility disorder. Salazar Everett MD Chest CT 04/19/17 0000 Signed Impressions: Service Date/Time: April 15:02 - CONCLUSION: 1. No alveolar consolidation within left lower lobe consistent with probable lobar pneumonia. Clinical correlation is recommended. 2. Underlying stable chronic interstitial fibrosis bilaterally. 3. Cardiomegaly and coronary artery calcifications. 4. Calcified pleural plaque along the left hemidiaphragm. 5. Scattered stable low density lesions within the liver. 6. Degenerative changes and scoliosis of the thoracic spine. Toy Tellez MD Physical Exam HEENT: PERRL; normocephalic; atraumatic; CHEST: rales left lower lung field CARDIAC: RRR ABDOMEN: Soft, nondistended, nontender; no hepatosplenomegaly; bowel sounds are present in all four quadrants. EXTREMITIES: No clubbing, cyanosis, or edema. SKIN: Normal; no rash; no jaundice. PIPE SMOKING MACHINE OFFBEARER: No focal deficits; alert and oriented times three. 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 has had 2 egd and dilatation done in past. 11/2016 EGD and dilatation done with finding candidiasis. esophagram showed aspiration, esophageal dysmotility. COMBINE OPERATOR recommending honey thick liquid and mech soft diet but pt wants PEG tube. - weight loss - d/t decreased intake vs unk etiology. pt refused colonoscopy. says he had recent colonoscopy that was normal. 2017 resting in the bed, discussed reschedule for EGD PEG placement Sunday. Heart healthy diet ordered for today. Denies any acute abdominal pain nausea or vomiting. 04/22/17 eager for PEG tube procedure. needs nutrition consult PLAN - nutrition consult for TF - diet per COMBINE OPERATOR - EGD and PEG tube placement tomorrow - NPO after midnight tonight - on azithromycin, zosyn - Bowel regimen as needed pt seen by myself and Dr Torres and this note is on his behalf (Marla Nuñez) Physician Comments Will schedule PEG placement in AM. Plan otherwise as above. (Mariana Torres MD) Marla Nuñez Apr 22, 2017 12:47 Mariana Torres MD Apr 22, 2017 13:21
[2017-04-22] MEDS: AZITHROMYCIN INJ 500 MG in SODIUM CHLOR 0.9% 250 ML INJ 250 ML IV SCH (17:15)
[2017-04-23] VITALS (14 sets, daily range): BP systolic 91–141; BP diastolic 58–96; PULSE 56–127; RESP 18–20; TEMP 97–97.9; O2SAT 94–96
[2017-04-23] MEDS: PIPERACIL-TAZO 3.375 GM PREMIX 50 ML IV SCH (06:02)
[2017-04-23] MEDS: RESP: ALBUTEROL 2.5 MG/IPRATROPIUM 0.5 MG NEB (SCH) NEB ×4 (08:11→19:46)
[2017-04-23] MEDS: PANTOPRAZOLE SOD 20 MG DELAYED RELEASE TAB PO SCH ×2 (09:00→20:35)
[2017-04-23] MEDS: predniSONE 20 MG TAB PO SCH ×3 (09:00→20:35)
--- NOTE | 2017-04-23 09:38 | HHI.PR ---
Subjective Remarks Deferred entry - patient seen on 04/22/17 Patient denies cp/sob. states feels really well Objective Vitals Vital Signs Date Time Temp Pulse Resp B/P (MAP) Pulse Ox O2 Delivery O2 Flow Rate FiO2 04/23/17 08:01 97.6 56 18 91/58 (69) 96 04/23/17 04:14 97.4 112 18 115/96 (102) 96 04/23/17 04:00 Room Air 04/23/17 04:00 109 04/23/17 00:39 108 04/23/17 00:00 Room Air 04/23/17 00:00 97.4 94 18 141/96 (111) 96 04/22/17 20:50 Room Air 04/22/17 20:05 113 04/22/17 20:00 97.4 107 16 127/94 (105) 94 04/22/17 17:54 100 04/22/17 16:00 97.3 106 20 124/80 (95) 95 04/22/17 12:00 97.3 107 20 117/68 (84) 96 04/22/17 12:00 118 I/O 04/22/17 04/22/17 04/22/17 04/23/17 04/23/17 04/23/17 07:00 15:00 23:00 07:00 15:00 23:00 Intake Total 900 ml 620 ml 100 ml Output Total 600 ml 0 ml Balance 300 ml 620 ml 100 ml Intake Oral 800 ml 620 ml IV Total 100 ml 100 ml Output Urine Total 600 ml Stool Total 0 ml # Voids 4 4 Result Diagram: 04/20/17 0711 04/20/17 0711 Objective Remarks AAOx3 S1S2 (+) Irrgularly irregular Clear lungs BL, unlabored breathing Abdomen soft, nt, nd no edema in lower extemities A/P Problem List: (1) Aspiration pneumonia ICD Code: J69.0 - Pneumonitis due to inhalation of food and vomit Status: Acute Plan: Seen on CT chest as described above and reviewed by me. Continue IV antibiotics - Zosyn and Azithromycin GI consulted forPEG placement as esophagogram is showing aspiration. 04/22 Peg placement postponed for tomorrow. Case discussed with Dr Burnham. (2) Hemoptysis ICD Code: R04.2 - Hemoptysis Status: Resolved Plan: Pulmonary consulted. Self limited. Due to pna (3) COPD exacerbation ICD Code: J44.1 - Chronic obstructive pulmonary disease with (acute) exacerbation Plan: DC Solumedrol and start steroid taper. Continue Symbicort, Spiriva, Duo Neb schedule and PRN (4) Atrial fibrillation ICD Code: I48.91 - Unspecified atrial fibrillation Plan: Holding OAC per cardiology. Continue Cardizem - Will hold if patient hypotensive. rate controlled. (5) Hypertension ICD Code: I10 - Essential (primary) hypertension Plan: Hold antihypertensive medications since bp low. (6) Hypotension ICD Code: I95.9 - Hypotension, unspecified Plan: Hold bp medications - resume once bp better. Will Rx 250 ml of normal saline bolus IV. 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 has had 2 egd and dilatation done in past. 11/2016 EGD and dilatation done with finding candidiasis. esophagram showed aspiration, esophageal dysmotility. ST recommends honey thick liquid and mech soft diet but pt wants PEG tube. GI consulted - for PEG today. (8) Moderate protein-calorie malnutrition ICD Code: E44.0 - Moderate protein-calorie malnutrition Status: Acute Plan: Patient with weight loss due to dysphagia. Albumin 2.5. Consult dietitian for recommendations on Peg feeding. Assessment and Plan DVt prophylaxis: Scd's, No chemoprophylaxis for now given hemoptysis. Will place on heparin SQ if no further hemoptysis. Discharge Planning Pending PEG placement, resolution of hypotension. Problem Qualifiers (1) Aspiration pneumonia: Qualified Codes: J69.0 - Pneumonitis due to inhalation of food and vomit (2) Atrial fibrillation: Qualified Codes: I48.2 - Chronic atrial fibrillation (3) Hypertension: Qualified Codes: I10 - Essential (primary) hypertension (4) Hypotension: Qualified Codes: I95.9 - Hypotension, unspecified Clyde Robertson MD Apr 23, 2017 09:38
--- NOTE | 2017-04-23 09:59 | GIPROC ---
[facility] [address]. [facility], [address] EGD WITH PEG PROCEDURE REPORT EXAM DATE: 04/23/2017 PATIENT NAME: Toy Pickering MR#: [id number] BIRTHDATE: 1940 ATTENDING: Sara Llanes MD ORDER #: [id number] COMPUTERIZED MACHINE FABRIC CUTTER: Monroe Johns and Negar Black STATUS: inpatient INDICATIONS: The patient is a 77 yr old male here for an EGD with PEG due to dysphagia , aspiration pneumonia PROCEDURE PERFORMED: EGD with biopsy EGD with PEG placement MEDICATIONS: None and Per Anesthesia. TOPICAL ANESTHETIC: none CONSENT: The patient understands the risks and benefits of the procedure and understands that these risks include, but are not limited to: sedation, allergic reaction, infection, perforation and/or bleeding. Alternative means of evaluation and treatment include, among others: physical exam, x-rays, and/or surgical intervention. The patient elects to proceed with this endoscopic procedure. medical equipment was checked for proper function. Hand hygiene and appropriate measures for infection prevention was taken. After the risks, benefits and alternatives of the procedure were thoroughly explained, Informed consent was verified, confirmed and timeout was successfully executed by the treatment team. The patient was anesthetized with topical anesthesia and the Pentax [id number] endoscope was introduced through the mouth and advanced to the second portion of the duodenum. The instrument was slowly withdrawn as the mucosa was fully examined. Esophagitis was found The stomach was then inflated with air, and by a combination of transillumination and manual palpation, the site for the gastrostomy tube placement was selected and marked on the anterior abdominal wall. The skin of the anterior abdomen was surgically prepped and draped with sterile towels. Utilizing strict sterile technique, the selected site was then anesthetized with 1% xylocaine by injection into the skin and subcutaneous tissue. A 1 cm incision was made through the skin and subcutaneous tissue, and the needle/cannula assembly was then passed through the abdominal wall and through the anterior wall of the stomach, maintaining visualization with the endoscope. A snare device previously placed through the instrument channel was then opened and placed around the cannula, the needle was removed, and the insertion wire was passed through the cannula and into the stomach lumen. The snare was then loosened from the cannula, and repositioned to snare the insertion wire. The snare was then pulled up to the endoscope distal tip, and the scope was then withdrawn bringing with it the snare and insertion wire. The insertion wire was then released from the snare, and then loop-attached to the gastrostomy tube. Using the "pull technique", the G-tube was then pulled into place by traction on the insertion wire at the abdominal wall end. The G-tube insertion site was then cleansed once again, and the external bolster was placed over the tube to secure it to the abdominal wall. A sterile dressing was then applied, and the procedure terminated. a hiatal hernia The gastroscope was then slowly withdrawn and removed. ADVERSE EVENT: There were no complications. IMPRESSIONS: 1. Esophagitis was found entire esophagus-white deposits -suggesting camacho 2. A hiatal hernia 3. erythema oropharynx secindary radiation 4. gastric body polyps 5. gastrtiis antrum-biopsy RECOMMENDATIONS: 1. Anti-reflux regimen 2. Await biopsy results. Biopsy results will not be ready for 7-10 days. If you don't hear from us in two weeks, call our office for biopsy results. 3. dietary evalution 4. po feeding as per speech therapist 5.ok to use peg for medications today REPEAT EXAM: Return 1 year(s) EGD Sara Llanes MD eSigned: Sara Llanes MD 04/23/2017 9:59 AM cc: PATIENT NAME: Toy Pickering MR#: [id number]
--- NOTE | 2017-04-23 11:08 | HHI.FF ---
Face to Face Verification Diagnosis: (1) COPD exacerbation (2) Atrial fibrillation (3) Hypertension (4) Hemoptysis (5) Dysphagia (6) Aspiration pneumonia Home Health Nursing Order: Wound care and dressing changes Nursing assessment with vital signs Instructions: for PEG tube feedings I have seen patient Toy Picekring on 04/23/17. My clinical findings support the need for the requested home health care services because: Limited ability to care for self Need for psychosocial assistance I certify that my clinical findings support that this patient is homebound because: Unsafe to leave home unassisted Clyde Robertson MD Apr 23, 2017 11:08
[2017-04-23] MEDS ORDERED: PROPOFOL 200 MG/20 ML AMP IV ONE (12:00)
[2017-04-23] MEDS ORDERED: LIDOCAINE HCL 1% PF 5 ML SYRINGE OTHER ONE (12:00)
[2017-04-23] MEDS ORDERED: ESMOLOL HCL 100 MG/10 ML VIAL IV ONE (12:00)
--- NOTE | 2017-04-23 12:30 | MD ---
cc: Guerline Fajardo MD DATE OF DISCHARGE: HOSPITAL COURSE: Mr. Pickering is a 77-year-old white male, known to me with COPD, underlying pulmonary fibrosis, and a prior history of laryngeal cancer. He has also had a problem with atrial fibrillation and was on Xarelto. He called my office the day of admission with hemoptysis and a CT done earlier that day of the abdomen revealed a new extensive left lower lobe mass versus infiltrate. He was referred to the ER. On presentation to the ER, he had a CT of his chest which really did not reveal a mass, but he had an extensive infiltrate at the left base, probable aspiration in light of the prior history. He was admitted for further therapy. He was treated with antibiotics including Zosyn and Zithromax and the bleeding stopped almost immediately with treatment and holding his Xarelto. Cardiology saw him in consultation and agreed that the Xarelto at least temporarily needs to be held. He had another esophagram on 04/20/2017 and again as it had done previously it revealed aspiration. Speech therapy and GI are seeing him and felt that it was best that he have a G-tube placed, which we did this morning. Dr. Llanes said there was extensive scarring in the upper esophagus and airway area. Speech therapy is coming back to see him to see whether or not he can have anything orally or whether or not he needs to be n.p.o. Pulmonary status is improved. He is switched over to Augmentin and oral prednisone. His room air sats are in the 98% range and he is afebrile. A followup chest x-ray was ordered this morning and it is still pending. The patient is very stable at the present time. No respiratory distress and lungs are now basically clear with minimal congestion at the left base. He will be discharged home once cleared by GI and I will see him back in the office in 2 weeks. I told him to follow the instructions of the speech therapist with regard to what he can take by mouth, if anything, and of course they will give him instructions on the use of the gastrostomy tube. He is also to see Dr. Klein back as an outpatient to see if his upper airway has any new abnormalities, and I think he can start his Xarelto back, since he has had no hemoptysis here in the hospital. However, if any bleeding occurs on Xarelto, he is to stop it again and let me know. He would also like another opinion regarding possible interventions for his abnormal swallowing and that is something we can take up in the office and I also asked him to discuss that with Dr. Klein in case he knows of any further referrals that can be made. The patient will go home on the Augmentin and prednisone for an additional week. I will see him back in 2 weeks. We will do a followup scan at that point. He also will continue his Advair and his nebulizer at home with albuterol and Atrovent. R. Milton Fajardo MD RSW/TI , 12:10 PM , 12:28 PM
[2017-04-23] MEDS: LACTOBACILLUS ACIDOPHILUS TAB PO SCH ×2 (12:47→20:36)
[2017-04-23] MEDS: NYSTATIN SUSP 500,000 U/5 ML CUP SWISH-SWAL SCH ×3 (12:47→20:35)
[2017-04-23] MEDS: AMOXICILLIN/CLAVULANATE K 875 MG TAB PO SCH ×2 (12:48→20:35)
[2017-04-23] MEDS: BUDESONIDE-FORMOTEROL 160/4.5 MCG INHALER INH SCH ×2 (12:48→20:36)
[2017-04-23] MEDS: SODIUM CHLORIDE 0.9% FLUSH 10 ML FLUSH IV FLUSH SCH ×2 (12:48→20:36)
--- NOTE | 2017-04-23 13:02 | HHI.PR ---
Subjective Remarks Patient is sp PEG placement. The patient denies abdominal pain, nausea or vomiting. The patient states that shortness of breath is much improved, denies cough Denies hemoptysis. Objective Vitals Vital Signs Date Time Temp Pulse Resp B/P (MAP) Pulse Ox O2 Delivery O2 Flow Rate FiO2 04/23/17 09:57 97.0 100 24 106/76 (86) 100 04/23/17 08:01 97.6 56 18 91/58 (69) 96 04/23/17 04:14 97.4 112 18 115/96 (102) 96 04/23/17 04:00 Room Air 04/23/17 04:00 109 04/23/17 00:39 108 04/23/17 00:00 Room Air 04/23/17 00:00 97.4 94 18 141/96 (111) 96 04/22/17 20:50 Room Air 04/22/17 20:05 113 04/22/17 20:00 97.4 107 16 127/94 (105) 94 04/22/17 17:54 100 04/22/17 16:00 97.3 106 20 124/80 (95) 95 I/O 04/22/17 04/22/17 04/22/17 04/23/17 04/23/17 04/23/17 06:59 14:59 22:59 06:59 14:59 22:59 Intake Total 850 ml 670 ml 50 ml 250 ml Output Total 600 ml 0 ml Balance 250 ml 670 ml 50 ml 250 ml Intake Oral 800 ml 620 ml IV Total 50 ml 50 ml 50 ml 50 ml Other 200 ml Output Urine Total 600 ml Stool Total 0 ml # Voids 4 4 Result Diagram: 04/20/17 0711 04/20/17 0711 Imaging Last Impressions Neck CT 04/21/17 0000 Signed Impressions: Service Date/Time: Friday, April 21, 2017 11:32 - CONCLUSION: No abnormality seen to account for the patient's clinical presentation. There is extensive atherosclerosis identified within the carotid arteries with luminal narrowing identified within the proximal right internal carotid artery.. Aracelis Soto MD Esophagus X-Ray 04/20/17 0000 Signed Impressions: Service Date/Time: Thursday, April 20, 2017 08:36 - CONCLUSION: 1. Examination positive for aspiration. 2. Small sliding hiatal hernia. 3. Moderate nonspecific esophageal motility disorder. Salazar Everett MD Chest CT 04/19/17 0000 Signed Impressions: Service Date/Time: April 15:02 - CONCLUSION: 1. No alveolar consolidation within left lower lobe consistent with probable lobar pneumonia. Clinical correlation is recommended. 2. Underlying stable chronic interstitial fibrosis bilaterally. 3. Cardiomegaly and coronary artery calcifications. 4. Calcified pleural plaque along the left hemidiaphragm. 5. Scattered stable low density lesions within the liver. 6. Degenerative changes and scoliosis of the thoracic spine. Toy Tellez MD Objective Remarks AAOx3 S1S2 (+) Irrgularly irregular Clear lungs BL, unlabored breathing Abdomen soft, nt, nd no edema in lower extemities Procedures Status post panendoscopy with biopsy and PEG placement on 04/23/17. Medications and IVs Current Medications Medications (Trade) Dose Ordered Sig/Zoya Route Start Time Stop Time Status Last Admin (NS Flush) 2 ml UNSCH PRN IV FLUSH 04/19/17 16:45 (NS Flush) 2 ml BID IV FLUSH 04/19/17 21:00 04/23/17 12:48 (Tylenol) 650 mg Q4H PRN PO 04/19/17 16:45 (Zofran Inj) 4 mg Q6H PRN IVP 04/19/17 16:45 (Tylenol) 650 mg Q6H PRN PO 04/19/17 16:45 ([place] 5-325 Mg) 1 tab Q4H PRN PO 04/19/17 16:45 (Narcan Inj) 0.4 mg UNSCH PRN IV PUSH 04/19/17 16:45 (Milk Of Magnesia Liq) 30 ml Q12H PRN PO 04/19/17 16:45 (Duoneb Neb) 1 ampule Q2HR NEB PRN NEB 04/19/17 16:45 (Lactinex) 1 tab Q12HR PO 04/19/17 21:00 04/23/17 12:47 (Cardizem Cd) 240 mg AC BREAKFAST PO 04/20/17 07:00 Future Hold 04/21/17 05:51 (Cardizem) 120 mg HS PO 04/19/17 21:00 Future Hold 04/20/17 21:32 (Symbicort 160-4.5 Mcg Inh) 2 puff BID INH 04/19/17 21:00 04/23/17 12:48 (Protonix) 20 mg BID PO 04/19/17 21:00 04/22/17 20:49 (Deltasone) 20 mg BID PO 04/21/17 21:00 04/23/17 12:49 (Mycostatin Liq) 5 ml QID SWISH-SWAL 04/23/17 13:00 04/23/17 12:47 (Duoneb Neb) 1 ampule TID NEB NEB 04/23/17 14:00 (Augmentin) 875 mg Q12HR PO 04/23/17 11:15 04/23/17 12:48 A/P Problem List: (1) Aspiration pneumonia ICD Code: J69.0 - Pneumonitis due to inhalation of food and vomit Status: Acute (2) Hemoptysis ICD Code: R04.2 - Hemoptysis Status: Resolved (3) COPD exacerbation ICD Code: J44.1 - Chronic obstructive pulmonary disease with (acute) exacerbation (4) Atrial fibrillation ICD Code: I48.91 - Unspecified atrial fibrillation (5) Hypertension ICD Code: I10 - Essential (primary) hypertension (6) Hypotension ICD Code: I95.9 - Hypotension, unspecified (7) Dysphagia ICD Code: R13.10 - Dysphagia, unspecified (8) Moderate protein-calorie malnutrition ICD Code: E44.0 - Moderate protein-calorie malnutrition Status: Acute Assessment and Plan (1) Aspiration pneumonia ICD Code: J69.0 - Pneumonitis due to inhalation of food and vomit Plan: Seen on CT chest as described above and reviewed by me. Continue IV antibiotics - Zosyn and Azithromycin GI consulted for PEG placement as esophagogram is showing aspiration. 04/23 status post PEG placement. I will discontinue azithromycin and IV Zosyn. I will start the patient on Augmentin 825 mg p.o. twice daily for another 7 days. Discussed the case with Dr. Fajardo. (2) Hemoptysis ICD Code: R04.2 - Hemoptysis Status: Resolved Plan: Pulmonary consulted. Self limited. Due to pna 04/23 will resume oral anticoagulation since patient has not had any further hemoptysis. (3) COPD exacerbation ICD Code: J44.1 - Chronic obstructive pulmonary disease with (acute) exacerbation Plan: DC Solumedrol and start steroid taper. Continue Symbicort, Spiriva, Duo Neb schedule and PRN 04/23 Continue steroid taper and antibiotic x 1 week. (4) Atrial fibrillation ICD Code: I48.91 - Unspecified atrial fibrillation Plan: Holding OAC per cardiology. Continue Cardizem - Will hold if patient hypotensive. rate controlled. (5) Hypertension ICD Code: I10 - Essential (primary) hypertension Plan: Hold antihypertensive medications since bp low. (6) Hypotension ICD Code: I95.9 - Hypotension, unspecified Plan: Hold bp medications - resume once bp better. 04/23 status post 250 mL's of normal saline bolus. Blood pressure improved however still on the lower side. Continue to hold antihypertensive medications. Will start on maintenance IV fluids. 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 has had 2 egd and dilatation done in past. 11/2016 EGD and dilatation done with finding candidiasis. esophagram showed aspiration, esophageal dysmotility. ST recommends honey thick liquid and mech soft diet but pt wants PEG tube. 04/23 status post PEG placement. Dietitian consulted, recommended Jevity 1.5 @ 65mls/hr x 24hrs. Will start once patient has been cleared to use the PEG tube. (8) Moderate protein-calorie malnutrition ICD Code: E44.0 - Moderate protein-calorie malnutrition Status: Acute Plan: Patient with weight loss due to dysphagia. Albumin 2.5. Dietitian consulted. DVt prophylaxis: Scd's, heparin subcu, resume Xarelto in a.m. Discharge Planning Pending PEG placement, resolution of hypotension. Problem Qualifiers (1) Aspiration pneumonia: Qualified Codes: J69.0 - Pneumonitis due to inhalation of food and vomit (2) Atrial fibrillation: Qualified Codes: I48.2 - Chronic atrial fibrillation (3) Hypertension: Qualified Codes: I10 - Essential (primary) hypertension (4) Hypotension: Qualified Codes: I95.9 - Hypotension, unspecified Clyde Robertson MD Apr 23, 2017 13:02
[2017-04-23] MEDS: SODIUM CHLOR 0.9% 1000 ML INJ 1,000 ML IV SCH (14:20)
--- NOTE | 2017-04-23 16:29 | RADRPT ---
EXAM DATE/TIME: 04/23/2017 16:07 [place] COMPARISON: CHEST SINGLE AP, April 02, 2017, 5:38. ESOPHAGRAM, April 20, 2017, 8:36. INDICATIONS : Short of breath, history of aspiration pneumonia, hemoptysis, dysphagia, and throat cancer MEDICAL HISTORY : throat cancer with radiation therapy SURGICAL HISTORY : None. ENCOUNTER: Initial ACUITY: 1 month PAIN SCORE: 0/10 LOCATION: Bilateral chest FINDINGS: The heart is enlarged. There is advanced interstitial fibrotic change throughout the pulmonary parenc hyma. There is pleural calcification along the left hemidiaphragm. The visualized bony structures demonstrate degenerative changes within the left shoulder but are othe rwise intact. CONCLUSION: 1. Interstitial fibrosis. 2. Cardiomegaly. 3. Stable compared to prior study dated 04/02/17. Gil Daily MD on April 23, 2017 at 16:26 Board Certified Radiologist. This report was verified electronically.
[2017-04-23] MEDS ORDERED: DILTIAZEM HCL 25 MG/5 ML VIAL IV ONE (20:15)
[2017-04-23] MEDS ORDERED: DILTIAZEM HCL 50 MG/10 ML VIAL IV ONE (20:30)
[2017-04-24] MEDS: SODIUM CHLOR 0.9% 1000 ML INJ 1,000 ML IV SCH ×2 (01:11→08:17)
[2017-04-24 03:21] VITALS: BP 117/80; PULSE 116; RESP 16; TEMP 98.2; O2SAT 95
[2017-04-24 05:15] VITALS: PULSE 111
[2017-04-24 08:00] VITALS: BP 111/71; PULSE 113; PULSE 127; RESP 20; TEMP 97.4
[2017-04-24] MEDS: SODIUM CHLORIDE 0.9% FLUSH 10 ML FLUSH IV FLUSH SCH (08:14)
[2017-04-24] MEDS: BUDESONIDE-FORMOTEROL 160/4.5 MCG INHALER INH SCH (08:15)
[2017-04-24] MEDS: LACTOBACILLUS ACIDOPHILUS TAB PO SCH (08:15)
[2017-04-24] MEDS: NYSTATIN SUSP 500,000 U/5 ML CUP SWISH-SWAL SCH ×3 (08:15→18:24)
[2017-04-24] MEDS: AMOXICILLIN/CLAVULANATE K 875 MG TAB PO SCH (08:16)
[2017-04-24] MEDS: predniSONE 20 MG TAB PO SCH (08:16)
[2017-04-24] MEDS: PANTOPRAZOLE SOD 20 MG DELAYED RELEASE TAB PO SCH (08:16)
[2017-04-24] MEDS: RESP: ALBUTEROL 2.5 MG/IPRATROPIUM 0.5 MG NEB (SCH) NEB ×3 (09:14→12:33)
[2017-04-24] MEDS ORDERED: DILTIAZEM-CD 240 MG CAP ER PO ONE (10:30)
[2017-04-24] MEDS ORDERED: RIVAROXABAN 20 MG TAB PO ONE (10:30)
[2017-04-24] MEDS ORDERED: DILTIAZEM HCL 50 MG/10 ML VIAL IV ONE (10:30)
[2017-04-24 12:00] VITALS: BP 128/81; PULSE 110; RESP 20; TEMP 97.4; O2SAT 95
[2017-04-24] MEDS ORDERED: DILTIAZEM HCL 30 MG TAB PO SCH (12:00)
--- NOTE | 2017-04-24 14:00 | HHI.GIFU ---
Subjective Remarks pt resting in bed. He is askign about bolus feedings, does not want 24 hour feedings. Wants to go home. (Marla Nuñez) Objective Vitals I&O Vital Signs Date Time Temp Pulse Resp B/P (MAP) Pulse Ox O2 Delivery O2 Flow Rate FiO2 04/24/17 12:00 97.4 110 20 128/81 (97) 95 04/24/17 08:00 97.4 127 20 111/71 (84) 04/24/17 08:00 113 04/24/17 07:31 Room Air 2.00 21 04/24/17 05:15 111 04/24/17 03:22 Room Air 04/24/17 03:21 98.2 116 16 117/80 (92) 95 04/23/17 23:40 123 04/23/17 23:22 Room Air 04/23/17 23:20 97.5 123 18 124/82 (96) 96 04/23/17 21:37 124 123/96 (105) 04/23/17 20:37 127 127/82 (97) 95 04/23/17 19:59 97.0 117 20 116/89 (98) 96 04/23/17 19:41 106 04/23/17 16:01 97.9 105 18 124/87 (99) 94 04/23/17 16:00 105 I/O 04/23/17 04/23/17 04/23/17 04/24/17 04/24/17 04/24/17 07:00 15:00 23:00 07:00 15:00 23:00 Intake Total 100 ml 200 ml 360 ml 1140 ml Balance 100 ml 200 ml 360 ml 1140 ml Intake Oral 360 ml 140 ml IV Total 100 ml 1000 ml Other 200 ml # Voids 4 3 2 2 # Bowel Movements 0 Laboratory Date/Time Source Procedure Growth Status 04/19/17 18:30 Blood Peripheral Aerobic Blood Culture - Final NO GROWTH IN 5 DAYS Complete 04/19/17 18:30 Blood Peripheral Anaerobic Blood Culture - Final NO GROWTH IN 5 DAYS Complete Imaging Last Impressions Chest X-Ray 04/23/17 0000 Signed Impressions: Service Date/Time: Sunday, April 23, 2017 16:07 - CONCLUSION: 1. Interstitial fibrosis. 2. Cardiomegaly. 3. Stable compared to prior study dated 04/02/17. Gil Daily MD Neck CT 04/21/17 0000 Signed Impressions: Service Date/Time: Friday, April 21, 2017 11:32 - CONCLUSION: No abnormality seen to account for the patient's clinical presentation. There is extensive atherosclerosis identified within the carotid arteries with luminal narrowing identified within the proximal right internal carotid artery.. Aracelis oSto MD Esophagus X-Ray 04/20/17 0000 Signed Impressions: Service Date/Time: Thursday, April 20, 2017 08:36 - CONCLUSION: 1. Examination positive for aspiration. 2. Small sliding hiatal hernia. 3. Moderate nonspecific esophageal motility disorder. Salazar Everett MD Chest CT 04/19/17 0000 Signed Impressions: Service Date/Time: April 15:02 - CONCLUSION: 1. No alveolar consolidation within left lower lobe consistent with probable lobar pneumonia. Clinical correlation is recommended. 2. Underlying stable chronic interstitial fibrosis bilaterally. 3. Cardiomegaly and coronary artery calcifications. 4. Calcified pleural plaque along the left hemidiaphragm. 5. Scattered stable low density lesions within the liver. 6. Degenerative changes and scoliosis of the thoracic spine. Toy Tellez MD Physical Exam HEENT: PERRL; normocephalic; atraumatic; CHEST: respirations even/unlabored CARDIAC: RRR ABDOMEN: Soft, nondistended, nontender; no hepatosplenomegaly; bowel sounds are present in all four quadrants. PEG site dressing d&I EXTREMITIES: No clubbing, cyanosis, or edema. SKIN: Normal; no rash; no jaundice. NAPPER TENDER: No focal deficits; alert and oriented times three. (Marla Nuñez [facility]) Assessment and Plan Plan ASSESSMENT - dysphagia, aspiration - dififculty swallowing solid food since radiation tx for laryngeal ca 2 y ago. has had 2 egd and dilatation done in past. 11/2016 EGD and dilatation done with finding candidiasis. esophagram showed aspiration, esophageal dysmotility. HEEL COVERER recommending honey thick liquid and mech soft diet but pt wants PEG tube. - weight loss - d/t decreased intake vs unk etiology. pt refused colonoscopy. says he had recent colonoscopy that was normal. 2017 resting in the bed, discussed reschedule for EGD PEG placement Sunday morning. Heart healthy diet ordered for today. Denies any acute abdominal pain nausea or vomiting. 04/22/17 eager for PEG tube procedure. needs nutrition consult 04/24/17 s/p PEG tube placement. EGD was suggestive camacho, erythema oropharynx 2/2 radiation, gastric polyps. bx pending Nutrition has recommended Jevity 1.5 24h with goal rate 65ml/hr. pt wants bolus feedings, does not want continuous feeds. PEG site clean and dry, minimal TTP PLAN - nutrition consult for bolus feedings - ok to start TF - PO diet per HEEL COVERER - GI will sign off. please reconsult if needed. pt seen by myself and Shraddha and myself and this note is on her behalf (Marla Nuñez) Marla Nuñez Apr 24, 2017 14:00 Sara Llanes MD Apr 24, 2017 16:17
--- NOTE | 2017-04-24 14:45 | EKG ---
Date Performed: 04/24/2017 Time Performed: 10:39:53 PTAGE: 77 years EKG: ATRIAL FIBRILLATION WITH RAPID VENTRICULAR RESPONSE INCOMPLETE RIGHT BUNDLE BRANCH BLOCK AB NORMAL ECG PREVIOUS TRACING : 04/19/2017 13.15 No significant change from previous tracing noted. DOCTOR: Venkata Gordon Interpretating Date/Time 04/24/2017 14:43:31
--- NOTE | 2017-04-24 15:07 | HHI.PR ---
Subjective Remarks Patient denies abdominal pain, nausea or vomiting anxious - wants to go home Objective Vitals Vital Signs Date Time Temp Pulse Resp B/P (MAP) Pulse Ox O2 Delivery O2 Flow Rate FiO2 04/24/17 12:00 97.4 110 20 128/81 (97) 95 04/24/17 08:00 97.4 127 20 111/71 (84) 04/24/17 08:00 113 04/24/17 07:31 Room Air 2.00 21 04/24/17 05:15 111 04/24/17 03:22 Room Air 04/24/17 03:21 98.2 116 16 117/80 (92) 95 04/23/17 23:40 123 04/23/17 23:22 Room Air 04/23/17 23:20 97.5 123 18 124/82 (96) 96 04/23/17 21:37 124 123/96 (105) 04/23/17 20:37 127 127/82 (97) 95 04/23/17 19:59 97.0 117 20 116/89 (98) 96 04/23/17 19:41 106 04/23/17 16:01 97.9 105 18 124/87 (99) 94 04/23/17 16:00 105 I/O 04/23/17 04/23/17 04/23/17 04/24/17 04/24/17 04/24/17 07:00 15:00 23:00 07:00 15:00 23:00 Intake Total 100 ml 200 ml 360 ml 1140 ml 720 ml Balance 100 ml 200 ml 360 ml 1140 ml 720 ml Intake Oral 360 ml 140 ml 720 ml IV Total 100 ml 1000 ml Other 200 ml # Voids 4 3 2 5 # Bowel Movements 0 Result Diagram: 04/20/17 0711 04/20/17 0711 Imaging Last 72 hours Impressions Chest X-Ray 04/23/17 0000 Signed Impressions: Service Date/Time: Sunday, April 23, 2017 16:07 - CONCLUSION: 1. Interstitial fibrosis. 2. Cardiomegaly. 3. Stable compared to prior study dated 04/02/17. Gil Daily MD Objective Remarks AAOx3 S1S2 (+) Irrgularly irregular Clear lungs BL, unlabored breathing Abdomen soft, nt, nd - PEG in place C/D/I no edema in lower extemities Procedures Status post panendoscopy with biopsy and PEG placement on 04/23/17. Medications and IVs Current Medications Medications (Trade) Dose Ordered Sig/Zoya Route Start Time Stop Time Status Last Admin (NS Flush) 2 ml UNSCH PRN IV FLUSH 04/19/17 16:45 (NS Flush) 2 ml BID IV FLUSH 04/19/17 21:00 04/23/17 20:36 (Tylenol) 650 mg Q4H PRN PO 04/19/17 16:45 (Zofran Inj) 4 mg Q6H PRN IVP 04/19/17 16:45 (Tylenol) 650 mg Q6H PRN PO 04/19/17 16:45 ([place] 5-325 Mg) 1 tab Q4H PRN PO 04/19/17 16:45 (Narcan Inj) 0.4 mg UNSCH PRN IV PUSH 04/19/17 16:45 (Milk Of Magnesia Liq) 30 ml Q12H PRN PO 04/19/17 16:45 (Duoneb Neb) 1 ampule Q2HR NEB PRN NEB 04/19/17 16:45 (Lactinex) 1 tab Q12HR PO 04/19/17 21:00 04/24/17 08:15 (Cardizem Cd) 240 mg AC BREAKFAST PO 04/20/17 07:00 Future Hold 04/21/17 05:51 (Cardizem) 120 mg HS PO 04/19/17 21:00 Future Hold 04/20/17 21:32 (Symbicort 160-4.5 Mcg Inh) 2 puff BID INH 04/19/17 21:00 04/24/17 08:15 (Protonix) 20 mg BID PO 04/19/17 21:00 04/24/17 08:16 (Deltasone) 20 mg BID PO 04/21/17 21:00 04/24/17 08:16 (Mycostatin Liq) 5 ml QID SWISH-SWAL 04/23/17 13:00 04/24/17 12:53 (Duoneb Neb) 1 ampule TID NEB NEB 04/23/17 14:00 04/24/17 12:33 (Augmentin) 875 mg Q12HR PO 04/23/17 11:15 04/24/17 08:16 Sodium Chloride 1,000 ml @ 100 mls/hr Q10H IV 04/23/17 13:15 04/24/17 08:17 (Cardizem Cd) 240 mg DAILY PO 04/25/17 09:00 (Xarelto) 20 mg DAILY PO 04/25/17 09:00 Urinary Catheter: No A/P Problem List: (1) Aspiration pneumonia ICD Code: J69.0 - Pneumonitis due to inhalation of food and vomit Status: Acute (2) Hemoptysis ICD Code: R04.2 - Hemoptysis Status: Resolved (3) COPD exacerbation ICD Code: J44.1 - Chronic obstructive pulmonary disease with (acute) exacerbation (4) Atrial fibrillation ICD Code: I48.91 - Unspecified atrial fibrillation (5) Hypertension ICD Code: I10 - Essential (primary) hypertension (6) Hypotension ICD Code: I95.9 - Hypotension, unspecified (7) Dysphagia ICD Code: R13.10 - Dysphagia, unspecified (8) Moderate protein-calorie malnutrition ICD Code: E44.0 - Moderate protein-calorie malnutrition Status: Acute Assessment and Plan (1) Aspiration pneumonia ICD Code: J69.0 - Pneumonitis due to inhalation of food and vomit Plan: Seen on CT chest as described above and reviewed by me. Continue IV antibiotics - Zosyn and Azithromycin GI consulted for PEG placement as esophagogram is showing aspiration. 04/23 status post PEG placement. I will discontinue azithromycin and IV Zosyn. I will start the patient on Augmentin 825 mg p.o. twice daily for another 7 days. Discussed the case with Dr. Fajardo. 04/24 Start Peg tube feedings. Patient desires bolus feeding. Will start Jevity 1.5 360 ml on B, L, D. Patient may be discharged after tolerating feed tonight. (2) Hemoptysis ICD Code: R04.2 - Hemoptysis Status: Resolved Plan: Pulmonary consulted. Self limited. Due to pna 04/23 will resume oral anticoagulation since patient has not had any further hemoptysis. (3) COPD exacerbation ICD Code: J44.1 - Chronic obstructive pulmonary disease with (acute) exacerbation Plan: DC Solumedrol and start steroid taper. Continue Symbicort, Spiriva, Duo Neb schedule and PRN 04/23 Continue steroid taper and antibiotic x 1 week. (4) Atrial fibrillation ICD Code: I48.91 - Unspecified atrial fibrillation Plan: Holding OAC per cardiology. Continue Cardizem - Will hold if patient hypotensive. rate controlled. (5) Hypertension ICD Code: I10 - Essential (primary) hypertension Plan: Hold antihypertensive medications since bp low. (6) Hypotension ICD Code: I95.9 - Hypotension, unspecified Plan: Hold bp medications - resume once bp better. 04/23 status post 250 mL's of normal saline bolus. Blood pressure improved however still on the lower side. Continue to hold antihypertensive medications. Will start on maintenance IV fluids. 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 has had 2 egd and dilatation done in past. 11/2016 EGD and dilatation done with finding candidiasis. esophagram showed aspiration, esophageal dysmotility. ST recommends honey thick liquid and mech soft diet but pt wants PEG tube. 04/23 status post PEG placement. Dietitian consulted, recommended Jevity 1.5 @ 65mls/hr x 24hrs. Will start once patient has been cleared to use the PEG tube. (8) Moderate protein-calorie malnutrition ICD Code: E44.0 - Moderate protein-calorie malnutrition Status: Acute Plan: Patient with weight loss due to dysphagia. Albumin 2.5. Dietitian consulted. DVt prophylaxis: Scd's, heparin subcu, resume Xarelto in a.m. Discharge Planning Possible DC tonight after tolerating tube feeds. Problem Qualifiers (1) Aspiration pneumonia: Qualified Codes: J69.0 - Pneumonitis due to inhalation of food and vomit (2) Atrial fibrillation: Qualified Codes: I48.2 - Chronic atrial fibrillation (3) Hypertension: Qualified Codes: I10 - Essential (primary) hypertension (4) Hypotension: Qualified Codes: I95.9 - Hypotension, unspecified Clyde Robertson MD Apr 24, 2017 15:07
[2017-04-24] MEDS ORDERED: PRED20 PO (15:10)
[2017-04-24] MEDS ORDERED: XARE20TA PO (15:10)
[2017-04-24] MEDS ORDERED: AMOX875T2 PO (15:10)
--- NOTE | 2017-04-24 15:17 | HHI.DS ---
Discharge Summary Admission Date Apr 19, 2017 at 16:16 Discharge Date: Apr 24, 2017 Admitting Diagnosis Hemoptysis (1) Aspiration pneumonia ICD Code: J69.0 - Pneumonitis due to inhalation of food and vomit Diagnosis: Principal Status: Acute (2) Hemoptysis ICD Code: R04.2 - Hemoptysis Diagnosis: Principal Status: Resolved (3) COPD exacerbation ICD Code: J44.1 - Chronic obstructive pulmonary disease with (acute) exacerbation Diagnosis: Principal (4) Atrial fibrillation ICD Code: I48.91 - Unspecified atrial fibrillation Diagnosis: Principal Status: Chronic (5) Hypertension ICD Code: I10 - Essential (primary) hypertension Diagnosis: Principal Status: Chronic (6) Hypotension ICD Code: I95.9 - Hypotension, unspecified Diagnosis: Principal Status: Resolved (7) Dysphagia ICD Code: R13.10 - Dysphagia, unspecified Diagnosis: Principal Status: Acute (8) Moderate protein-calorie malnutrition ICD Code: E44.0 - Moderate protein-calorie malnutrition Diagnosis: Principal Status: Acute Procedures Status post panendoscopy with biopsy and PEG placement on 04/23/17. Brief History - From Admission 77-year-old man with a history of laryngeal cancer, COPD, pulmonary fibrosis presented to the ED for evaluation of hemoptysis and questionable 4 cm mass in the left base is CT abdomen/pelvics. Patient has a known history of laryngeal cancer and has had multiple admissions secondary to aspiration pneumonia in the past. 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 However, a repeat CT abdomen ordered by his PCP recently revealed a 4 cm mass in the left base. Patient is currently on Xarelto oral anticoagulation secondary to history of atrial fibrillation. He has no chest pain, denies any GI bleed. The case was discussed with Dr. Giorgio Fajardo CBC/BMP: 04/20/17 0711 04/20/17 0711 Imaging Last Impressions Chest X-Ray 04/23/17 0000 Signed Impressions: Service Date/Time: Sunday, April 23, 2017 16:07 - CONCLUSION: 1. Interstitial fibrosis. 2. Cardiomegaly. 3. Stable compared to prior study dated 04/02/17. Gil Daily MD Neck CT 04/21/17 0000 Signed Impressions: Service Date/Time: Friday, April 21, 2017 11:32 - CONCLUSION: No abnormality seen to account for the patient's clinical presentation. There is extensive atherosclerosis identified within the carotid arteries with luminal narrowing identified within the proximal right internal carotid artery.. Aracelis Soto MD Esophagus X-Ray 04/20/17 0000 Signed Impressions: Service Date/Time: Thursday, April 20, 2017 08:36 - CONCLUSION: 1. Examination positive for aspiration. 2. Small sliding hiatal hernia. 3. Moderate nonspecific esophageal motility disorder. Salazar Everett MD Chest CT 04/19/17 0000 Signed Impressions: Service Date/Time: April 15:02 - CONCLUSION: 1. No alveolar consolidation within left lower lobe consistent with probable lobar pneumonia. Clinical correlation is recommended. 2. Underlying stable chronic interstitial fibrosis bilaterally. 3. Cardiomegaly and coronary artery calcifications. 4. Calcified pleural plaque along the left hemidiaphragm. 5. Scattered stable low density lesions within the liver. 6. Degenerative changes and scoliosis of the thoracic spine. Toy Tellez MD PE at Discharge AAOx3 S1S2 (+) Irrgularly irregular Clear lungs BL, unlabored breathing Abdomen soft, nt, nd - PEG in place C/D/I no edema in lower extemities Pt update on day of discharge The patient denies chest pain or shortness of breath. Eager to start tube feedings. Wants to go home. Pt Condition on Discharge: Stable Discharge Disposition: Discharge Home Discharge Time: > 30 minutes Discharge Instructions DIET: Follow Instructions for: As Tolerated, No Restrictions, On Tube Feeding Speech Therapy-Diet Recommends: Honey Thickened Liquids, Mechanical Soft Additional Diet Instructions: Tube feeding: Jevity 1.5 360 ml with breakfast, lunch and dinner. Activities you can perform: Regular-No Restrictions Follow up Referrals: PCP Follow-up - 2 Weeks Pulmonology - 3 Weeks New Medications: Prednisone (Prednisone) 20 Mg Tab 20 MG PO DIRECTED for Inflammation, #11 TAB 0 Refills 20 MG twice a day x 3 days, then 20 MG daily x 3 days, then 10 MG daily x 3 days Amoxicillin-Clavulanate (Amoxicillin-Clavulanate) 875-125 mg Tab 875 MG PO Q12HR for Infection, #14 TAB not for use in CrCl <30 mL/minute Continued Medications: Diltiazem (Diltiazem) 120 Mg Tab 120 MG PO HS for Angina, #120 TAB 0 Refills Diltiazem CD 24 HR (Diltiazem CD 24 HR) 240 Mg Caper 240 MG PO AC BREAKFAST, #30 CAP 0 Refills Fluticasone-Salmeterol Inh (Advair Diskus Inh) 250-50 Mcg/Blist Aer 1 PUFF INH BID, #1 INHALER 0 Refills Rinse mouth after use. Omeprazole Magnesium (Prilosec) 20 Mg Tab 20 MG PO BID for Reflux for 30 Days, #60 TAB 0 Refills Rivaroxaban (Xarelto) 20 Mg Tab 20 MG PO DAILY for Blood Clot Prevention, #30 TAB 0 Refills (This prescription has been renewed) Clyde Robertson MD Apr 24, 2017 15:17
[2017-04-24 16:00] VITALS: BP_SYST 116; BP_SYST 126; BP_DIAS 60; PULSE 109; PULSE 85; PULSE 89; RESP 19; RESP 20; TEMP 97.3; TEMP 97.6; O2SAT 96; O2SAT 97
[2017-04-24 19:00] VITALS: BP 127/76; PULSE 92; RESP 19; TEMP 95.2; O2SAT 94
[2017-04-25] MEDS ORDERED: RIVAROXABAN 20 MG TAB PO SCH (09:00)
[2017-04-25] MEDS ORDERED: DILTIAZEM-CD 240 MG CAP ER PO SCH (09:00)
== END 2017-04-24 18:37 | disposition home or self-care (01) | DRG 178 ==
LOC: NEPC 12:43 → NEDA 16:16 → NEDH 20:26 → N04A 22:17
PROVIDERS: ADMIT Hospitalist; ATTEND Hospitalist
PROC: 0DH63UZ Insertion of Feeding Device into Stomach, Percutaneous Approach (ICD-10-PCS; 2017-04-23)
PROC: 0DB38ZX Excision of Lower Esophagus, Via Natural or Artificial Opening Endoscopic, Diagnostic (ICD-10-PCS; principal; 2017-04-23 09:16)
PROC: 0DB78ZX Excision of Stomach, Pylorus, Via Natural or Artificial Opening Endoscopic, Diagnostic (ICD-10-PCS; 2017-04-23 09:16)
DX: J69.0 Pneumonitis due to inhalation of food and vomit (principal); R04.2 Hemoptysis; I95.9 Hypotension, unspecified; E44.0 Moderate protein-calorie malnutrition; B37.81 Candidal esophagitis; J84.10 Pulmonary fibrosis, unspecified; I11.9 Hypertensive heart disease without heart failure; J44.1 Chronic obstructive pulmonary disease with (acute) exacerbation; J44.0 Chronic obstructive pulmonary disease with (acute) lower respiratory infection; I48.0 Paroxysmal atrial fibrillation; I48.2 Chronic atrial fibrillation; E78.00 Pure hypercholesterolemia, unspecified; R73.03 Prediabetes; K44.9 Diaphragmatic hernia without obstruction or gangrene; K22.4 Dyskinesia of esophagus; K21.0 Gastro-esophageal reflux disease with esophagitis; Z92.3 Personal history of irradiation; Z92.21 Personal history of antineoplastic chemotherapy; Z79.01 Long term (current) use of anticoagulants; Z68.21 Body mass index [BMI] 21.0-21.9, adult; Z85.21 Personal history of malignant neoplasm of larynx; Z89.022 Acquired absence of left finger(s); Z85.828 Personal history of other malignant neoplasm of skin; Z87.891 Personal history of nicotine dependence; Z87.01 Personal history of pneumonia (recurrent)
CPT/HCPCS: 70491; 71045; 71260; 74220; 80048; 80053; 85025; 85610; 85730; 86077; 86850; 86870; 86900; 86901; 86902; 86920; 86922; 87040; 88305; 88312; 93005; 94640; 94664; 99285; J0456; J2543; J2920; J7030; J7050; J7512; Q9967

== ENCOUNTER 2017-06-08 16:16 | Observation (INO) | payer MEDICARE, OTHER ==
[~2017-06-08] VITALS: Ht 188 cm; Wt 75.0 kg
[2017-06-08] VITALS (8 sets, daily range): BP systolic 100–117; BP diastolic 60–74; PULSE 72–106; RESP 16–18; TEMP 97.4–98.1; O2SAT 95–98
[~2017-06-08 16:16] MED LIST changes: +AMOX875T2 PO; -AUGM875T3 PO; -DIFL100T PO; -OXYGENDME NAS.CANULA; -PRED10PA PO; +PRED20 PO
[2017-06-08 17:09] LABS: AUTOMATED NEUTROPHIL # 6.5 TH/MM3 (1.8-7.7); BASOPHIL # 0.1 TH/MM3 (0-0.2); BASOPHIL % 0.6 % (0.0-2.0); EOSINOPHIL # 0.1 TH/MM3 (0-0.4); EOSINOPHIL % 0.6 % (0.0-4.0); HEMATOCRIT 41.9 % (39.0-51.0); HEMOGLOBIN 13.8 GM/DL (13.0-17.0); LYMPH % 21.9 % (9.0-44.0); MEAN CELL VOLUME 90.1 FL (80.0-100.0); MEAN CORPUSCULAR HEMOGLOBIN 29.8 PG (27.0-34.0); MEAN CORPUSCULAR HGB CONC 33.1 % (32.0-36.0); MEAN PLATELET VOLUME 8.5 FL (7.0-11.0); MONO % 5.7 % (0.0-8.0); MONOCYTE # 0.5 TH/MM3 (0-0.9); NEUT % 71.2 % (16.0-70.0); PLATELET COUNT 229 TH/MM3 (150-450); RED BLOOD COUNT 4.65 MIL/MM3 (4.50-5.90); WHITE BLOOD COUNT 9.1 TH/MM3 (4.0-11.0)
[2017-06-08] MEDS ORDERED: SODIUM CHLORID 0.9% 500 ML INJ 500 ML IV ONE (17:15)
[2017-06-08 17:24] LABS: ALBUMIN 3.5 GM/DL (3.4-5.0); ALT (GPT) 50 U/L (12-78); AST (GOT) 40 U/L (15-37); BICARBONATE 28.2 MEQ/L (21.0-32.0); BLOOD UREA NITROGEN 49 MG/DL (7-18); CALCIUM 9.4 MG/DL (8.5-10.1); CHLORIDE 102 MEQ/L (98-107); CREATININE 1.14 MG/DL (0.60-1.30); GLOMERULAR FILTRATION RATE 62 ML/MIN (>89); GLUCOSE,RANDOM 90 MG/DL (74-106); MAGNESIUM 2.2 MG/DL (1.5-2.5); SODIUM (NA) 139 MEQ/L (136-145)
[2017-06-08 17:26] LABS: ALKALINE PHOSPHATASE 80 U/L (45-117); TOTAL BILIRUBIN ADULT 0.3 MG/DL (0.2-1.0); TOTAL PROTEIN 7.7 GM/DL (6.4-8.2)
[2017-06-08 17:29] LABS: PROTHROMBIN TIME - PATIENT 9.9 SEC (9.8-11.6)
--- NOTE | 2017-06-08 17:44 | PD ---
HPI Chief Complaint: GI Complaint Time Seen by Provider: 16:27 Travel History International Travel<30 days: No Contact w/Intl Traveler<30days: No Traveled to known affect area: No History of Present Illness HPI 77-year-old male that presents to the ED for evaluation of PEG tube malfunction. 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 Per patient he was put on a PEG tube because he continued to have aspiration secondary to this defect. He follows up with Dr. Jesus kramer who initially put the 2. Per patient he has had this tube for about a month and a half and apparently about a week ago he was told that he may have an infection around it. He has been using it noted that not a lot of food comes through it. Today he noticed that he could not get anything through it. She went to see Dr. Llanes who removed the tube stating that the tube was not even in the stomach. Told the patient to come here to get evaluated. Patient comes here with a prescription stating that Fernando Llanes wanted me to have it. On the prescription it says that she wants the patient to be admitted for IV fluids and labs and imaging done to rule out any sign of infection as well as dehydration as patient cannot take anything by mouth even medications. Patient denies any pain. Denies any other medical issues. No fevers chills or sweats. Per patient he has not had anything to eat today as he does not have a PEG tube and he could not get anything into the feeding tube. He does take blood thinner and was told to not take it today as he will likely have a procedure tomorrow. PFSH Past Medical History Hx Anticoagulant Therapy: Yes (xarelto) Atrial Fibrillation: Yes Cancer: Yes (THROAT CANCER) Cardiovascular Problems: Yes (ATRIAL FIB) High Cholesterol: No COPD: Yes Diabetes: No Diminished Hearing: Yes Endocrine: No Gastrointestinal Disorders: Yes (ACID REFLUX) GERD: Yes Gout: Yes Genitourinary: No Hepatitis: No Hiatal Hernia: No Hypertension: No Immune Disorder: No Implanted Vascular Access Dvce: Yes (PEG TUBE) Medical other: Yes (RADIATION AND CHEMO FOR TONSIL MALIGNANCY 2014) Musculoskeletal: No Neurologic: No Psychiatric: No Reproductive: No Respiratory: Yes (COPD, SCARRING IN LUNGS) Tetanus Vaccination: < 5 Years Past Surgical History Abdominal Surgery: No AICD: No Body Medical Devices: LEFT HIP PIN Cardiac Surgery: No Ear Surgery: No Endocrine Surgery: No Eye Surgery: No Genitourinary Surgery: No Gynecologic Surgery: No Joint Replacement: No Neurologic Surgery: No Oral Surgery: No Pacemaker: No Thoracic Surgery: No Other Surgery: Yes (AMPUTATION L FINGER X4) Social History Alcohol Use: Yes (5-6 OZ OF RUM AND COKE-DAILY AND 2-3 BEERS DAILY ) Tobacco Use: No (QUIT 1987 SMOKED 4 PPD FOR 25+YRS) Substance Use: No Allergies-Medications (Allergen,Severity, Reaction): Coded Allergies: Sulfa (Sulfonamide Antibiotics) (Unverified Allergy, Severe, Anaphylaxis, 06/08/17) Reported Meds & Prescriptions Reported Meds & Active Scripts Active Prilosec (Omeprazole Magnesium) 20 Mg Tab 20 Mg PO BID 30 Days Reported Advair Diskus Inh (Fluticasone-Salmeterol Inh) 250-50 Mcg/Blist Aer 1 Puff INH BID Rinse mouth after use. Diltiazem CD 24 HR 240 Mg Caper 240 Mg PO AC BREAKFAST Diltiazem (Diltiazem HCl) 120 Mg Tab 120 Mg PO HS Review of Systems Except as stated in HPI: all other systems reviewed are Neg Physical Exam Narrative GENERAL: SKIN: Warm and dry. HEAD: Atraumatic. Normocephalic. EYES: Pupils equal and round. No scleral icterus. No injection or drainage. ENT: No nasal bleeding or discharge. Mucous membranes pink and moist. Tongue is midline. No uvula deviation. NECK: Trachea midline. No JVD. CARDIOVASCULAR: Regular rate and rhythm. No murmurs, S3, S4. RESPIRATORY: No accessory muscle use. Clear to auscultation. Breath sounds equal bilaterally. GASTROINTESTINAL: Abdomen soft, non-tender, nondistended. Hepatic and splenic margins not palpable. MUSCULOSKELETAL: Extremities without clubbing, cyanosis, or edema. No obvious deformities. Full range of motion of the upper and lower extremities bilaterally. Patient has what appears to be an open wound to the mid abdomen with no sign of purulence or mass. Nontender. No erythema around it. NEUROLOGICAL: Awake and alert. No obvious cranial nerve deficits. Motor grossly within normal limits. Five out of 5 muscle strength in the arms and legs. Normal speech. PSYCHIATRIC: Appropriate mood and affect; insight and judgment normal. Data Data Last Documented VS Vital Signs Date Time Temp Pulse Resp B/P (MAP) Pulse Ox O2 Delivery O2 Flow Rate FiO2 06/08/17 19:01 97.4 106 16 112/63 (79) 98 Room Air Orders Orders Complete Blood Count With Diff (06/08/17 16:34) Comprehensive Metabolic Panel (06/08/17 16:34) Prothrombin Time / Inr (Pt) (06/08/17 16:34) Act Partial Throm Time (Ptt) (06/08/17 16:34) Lipase (06/08/17 16:34) Magnesium (Mg) (06/08/17 16:34) Iv Access Insert/Monitor (06/08/17 16:34) Ct Abd/Pel W Iv Contrast(Rout) (06/08/17 ) Sodium Chlorid 0.9% 500 Ml Inj (Ns 500 M (06/08/17 17:15) Iohexol 350 Inj (Omnipaque 350 Inj) (06/08/17 18:37) Npo After Midnight W/ Po Meds (06/08/17 Dinner) Consent (06/08/17 18:40) Cefazolin Inj (Ancef Inj) (06/08/17 20:00) Admit Order (Ed Use Only) (06/08/17 19:01) Labs Laboratory Tests Test 06/08/17 16:50 White Blood Count 9.1 TH/MM3 Red Blood Count 4.65 MIL/MM3 Hemoglobin 13.8 GM/DL Hematocrit 41.9 % Mean Corpuscular Volume 90.1 FL Mean Corpuscular Hemoglobin 29.8 PG Mean Corpuscular Hemoglobin Concent 33.1 % Red Cell Distribution Width 17.0 % Platelet Count 229 TH/MM3 Mean Platelet Volume 8.5 FL Neutrophils (%) (Auto) 71.2 % Lymphocytes (%) (Auto) 21.9 % Monocytes (%) (Auto) 5.7 % Eosinophils (%) (Auto) 0.6 % Basophils (%) (Auto) 0.6 % Neutrophils # (Auto) 6.5 TH/MM3 Lymphocytes # (Auto) 2.0 TH/MM3 Monocytes # (Auto) 0.5 TH/MM3 Eosinophils # (Auto) 0.1 TH/MM3 Basophils # (Auto) 0.1 TH/MM3 CBC Comment DIFF FINAL Differential Comment Prothrombin Time 9.9 SEC Prothromb Time International Ratio 1.0 RATIO Activated Partial Thromboplast Time 26.1 SEC Blood Urea Nitrogen 49 MG/DL Creatinine 1.14 MG/DL Random Glucose 90 MG/DL Total Protein 7.7 GM/DL Albumin 3.5 GM/DL Calcium Level 9.4 MG/DL Magnesium Level 2.2 MG/DL Alkaline Phosphatase 80 U/L Aspartate Amino Transf (AST/SGOT) 40 U/L Alanine Aminotransferase (ALT/SGPT) 50 U/L Total Bilirubin 0.3 MG/DL Sodium Level 139 MEQ/L Potassium Level 5.6 MEQ/L Chloride Level 102 MEQ/L Carbon Dioxide Level 28.2 MEQ/L Anion Gap 9 MEQ/L Estimat Glomerular Filtration Rate 62 ML/MIN Lipase 201 U/L MDM Medical Decision Making Medical Screen Exam Complete: Yes Emergency Medical Condition: Yes Medical Record Reviewed: Yes Interpretation(s) CBC & BMP Diagram 06/08/17 16:50 Total Protein 7.7, Albumin 3.5, Calcium Level 9.4, Magnesium Level 2.2, Alkaline Phosphatase 80, Aspartate Amino Transf (AST/SGOT) 40 H, Alanine Aminotransferase (ALT/SGPT) 50, Total Bilirubin 0.3 CT shows chronic changes but no sign of acute disease. coronary artery disease noted. Differential Diagnosis PEG tube malfunction versus dehydration versus infection versus cellulitis versus abscess Narrative Course 77-year-old male that presents to the ED for evaluation of PEG tube placement. Patient was properly examined and was found to have signs and symptoms consistent appears to be PEG tube malfunction with need for placement. I was able to speak with Dr. Llanes who was able to give me more information. Essentially the PEG tube apparently was not in the stomach at all and she could not get back in so she told the patient to come here to get a new placement. She has already schedule him for tomorrow. Patient is n.p.o. and cannot take anything by mouth due to the high risk of aspiration therefore she wanted the patient to be admitted for IV fluids as well as to do a scan of his belly as apparently he had an infection of his wound and is currently taking antibiotics. IV was started. Imaging was ordered. Fluids ordered. My attending evaluate the patient and agrees with plan. Labs and imaging showed elevated BUN from prior. Otherwise unremarcable exam. Patient will be admitted to [facility] for PEG tube placement. Dr Heller agrees to admission. Diagnosis Primary Impression: PEG tube malfunction Admitting Information Admitting Physician Requests: Observation Orlando Mccord June 08, 2017 17:44
--- NOTE | 2017-06-08 18:24 | PD ---
Physical Exam Date Seen by Provider: June 08, 2017 Time Seen by Provider: 17:20 Narrative I, Dr. Luz, have reviewed the advance practice practitioner's documentation and am in agreement, met with the patient face to face, made the diagnosis, and the medical decision making was done by me. *My assessment and Findings: Patient seen and evaluated with PA, please see PA notes for further details. Patient has been sent and by GI doctor because he has been having problems with his PEG tube, and it was discovered that the PEG tube was not in the right place. PEG tube was removed by GI and he was sent into the ER to be admitted for IV fluids and replacement of PEG tube. They had also asked that we do a CAT scan to rule out intra-abdominal acute processes as well. Laboratory Tests Test 06/08/17 16:50 Neutrophils (%) (Auto) 71.2 % (16.0-70.0) Blood Urea Nitrogen 49 MG/DL (7-18) Aspartate Amino Transf (AST/SGOT) 40 U/L (15-37) Potassium Level 5.6 MEQ/L (3.5-5.1) Estimat Glomerular Filtration Rate 62 ML/MIN (>89) With CAT scan pending, planning to admit for further treatment and PEG tube. Data Data Last Documented VS Vital Signs Date Time Temp Pulse Resp B/P (MAP) Pulse Ox O2 Delivery O2 Flow Rate FiO2 06/08/17 18:31 90 17 100/69 (79) 98 Room Air 06/08/17 16:20 98.1 Orders Orders Complete Blood Count With Diff (06/08/17 16:34) Comprehensive Metabolic Panel (06/08/17 16:34) Prothrombin Time / Inr (Pt) (06/08/17 16:34) Act Partial Throm Time (Ptt) (06/08/17 16:34) Lipase (06/08/17 16:34) Magnesium (Mg) (06/08/17 16:34) Iv Access Insert/Monitor (06/08/17 16:34) Ct Abd/Pel W Iv Contrast(Rout) (06/08/17 ) Sodium Chlorid 0.9% 500 Ml Inj (Ns 500 M (06/08/17 17:15) Iohexol 350 Inj (Omnipaque 350 Inj) (06/08/17 18:37) Npo After Midnight W/ Po Meds (06/08/17 Dinner) Consent (06/08/17 18:40) Cefazolin Inj (Ancef Inj) (06/08/17 18:45) Labs Laboratory Tests Test 06/08/17 16:50 White Blood Count 9.1 TH/MM3 Red Blood Count 4.65 MIL/MM3 Hemoglobin 13.8 GM/DL Hematocrit 41.9 % Mean Corpuscular Volume 90.1 FL Mean Corpuscular Hemoglobin 29.8 PG Mean Corpuscular Hemoglobin Concent 33.1 % Red Cell Distribution Width 17.0 % Platelet Count 229 TH/MM3 Mean Platelet Volume 8.5 FL Neutrophils (%) (Auto) 71.2 % Lymphocytes (%) (Auto) 21.9 % Monocytes (%) (Auto) 5.7 % Eosinophils (%) (Auto) 0.6 % Basophils (%) (Auto) 0.6 % Neutrophils # (Auto) 6.5 TH/MM3 Lymphocytes # (Auto) 2.0 TH/MM3 Monocytes # (Auto) 0.5 TH/MM3 Eosinophils # (Auto) 0.1 TH/MM3 Basophils # (Auto) 0.1 TH/MM3 CBC Comment DIFF FINAL Differential Comment Prothrombin Time 9.9 SEC Prothromb Time International Ratio 1.0 RATIO Activated Partial Thromboplast Time 26.1 SEC Blood Urea Nitrogen 49 MG/DL Creatinine 1.14 MG/DL Random Glucose 90 MG/DL Total Protein 7.7 GM/DL Albumin 3.5 GM/DL Calcium Level 9.4 MG/DL Magnesium Level 2.2 MG/DL Alkaline Phosphatase 80 U/L Aspartate Amino Transf (AST/SGOT) 40 U/L Alanine Aminotransferase (ALT/SGPT) 50 U/L Total Bilirubin 0.3 MG/DL Sodium Level 139 MEQ/L Potassium Level 5.6 MEQ/L Chloride Level 102 MEQ/L Carbon Dioxide Level 28.2 MEQ/L Anion Gap 9 MEQ/L Estimat Glomerular Filtration Rate 62 ML/MIN Lipase 201 U/L [facility] Medical Record Reviewed: Yes Supervised Visit with POLI: Yes Diagnosis Primary Impression: PEG tube malfunction Admitting Information Admitting Physician Requests: Admit Chasity Luz MD June 08, 2017 18:24
[2017-06-08] MEDS ORDERED: IOHEXOL 350 MG/ML 10 ML VIAL (for RAD DIAG) IVCONTRAST ONE (18:37)
--- NOTE | 2017-06-08 18:43 | RADRPT ---
EXAM DATE/TIME: 06/08/2017 18:24 [facility] COMPARISON: No previous studies available for comparison. INDICATIONS : Abdomen pain; evaluate peg tube. IV CONTRAST: 100 cc Omnipaque 350 (iohexol) IV ORAL CONTRAST: No oral contrast ingested. RADIATION DOSE: 7.39 CTDIvol (mGy) MEDICAL HISTORY : Cardiovascular disease. Carcinoma, not otherwise specified. SURGICAL HISTORY : None. ENCOUNTER: Initial ACUITY: 1 day PAIN SCALE: 5/10 LOCATION: Bilateral abdomen TECHNIQUE: Volumetric scanning of the abdomen and pelvis was performed. Using automated exposure control and ad justment of the mA and/or kV according to patient size, radiation dose was kept as low as reasonably achievable to obtain optimal diagnostic quality images. DICOM format image data is available electro nically for review and comparison. FINDINGS: No basilar lung fibrosis with honeycombing. Left-sided pleural calcifications. Stable tiny hepatic cysts. Spleen, adrenals and pancreas unremarkable. Small left renal cysts with no nobstructing 4 mm calcification on the left. No free fluid. No bowel obstruction. Colonic diverticulosis is present. His rectal constipation. No a cute bony abnormalities. There is a tract extending from the anterior portion of the stomach through the anterior abdominal wa ll but no actual peg tubing is identified. CONCLUSION: 1. No acute findings within the abdomen. There is a tract extending from the anterior stomach to the anterior abdominal wall but no actual peg tube is identified. 2. Severe basilar lung fibrosis. Left pleural calcifications. 3. Tiny hepatic and renal cysts on the left. Nonobstructing left renal calculus. 4. Diverticulosis and rectal constipation. 5. Severe coronary artery disease. Cardiomegaly. Salazar Everett MD on June 08, 2017 at 18:36 Board Certified Radiologist. This report was verified electronically.
--- NOTE | 2017-06-08 19:12 | HHI.HP ---
[facility] Camille Krause M.D. Admission Diagnosis PEG tube malfunction needing placement, dehydration Diagnoses: (1) PEG tube malfunction Diagnosis: Principal (2) Dehydration Diagnosis: Principal (3) A-fib Diagnosis: Principal (4) COPD (chronic obstructive pulmonary disease) Diagnosis: Principal Travel History International Travel<30 Days: No Contact w/Intl Traveler <30 Da: No Traveled to Known Affected Are: No History of Present Illness This is a 77-year-old male with a PMH of A. fib, Throat CA, h/o Aspiration s/p PEG Tube and COPD who was referred to the ER by his GI doc, Dr. Llanes, for admission due to PEG Malfunction. S/p PEG Tube placement approx 1 month ago for recurrent aspiration, states he's been having issues w/ PEG for the last 1wk , today called Dr. Llanes's office as he was unable to flush anything through PEG. Was seen in office and had PEG Tube removed by Dr. Llanes, instructed to come to ER for admission/replacement of PEG in am. Pt w/o complaints at this time. Denies fever, chills, abdominal pain, nausea, vomiting or diarrhea. On arrival, BP 106/64, HR 97, O2 sat 96% on RA, Afebrile. CBC unremarkable. Creatinine 1.14, previously 0.91 on 04/20/2017, BUN elevated at 49. INR 1.0. CT Abdomen/Pelvis with no acute findings, tract extending from anterior stomach to anterior abdominal wall but no PEG tube identified. Review of Systems Except as stated in HPI: all other systems reviewed are Neg ROS: 14 point review of systems otherwise negative. Past Family Social History Past Medical History PMH: A. fib, Throat CA, h/o Aspiration s/p PEG Tube and COPD Past Surgical History PAST SURGICAL HISTORY: Left Hip Pain, Left Finger Amputation Allergies: Coded Allergies: Sulfa (Sulfonamide Antibiotics) (Unverified Allergy, Severe, Anaphylaxis, 06/08/17) Family History PAST FAMILY HISTORY: Reviewed. No h/o DM or CAD Social History PAST SOCIAL HISTORY: Positive for alcohol, h/o tobacco. Negative for drugs. Physical Exam Vital Signs Vital Signs Date Time Temp Pulse Resp B/P (MAP) Pulse Ox O2 Delivery O2 Flow Rate FiO2 06/08/17 19:01 97.4 106 16 112/63 (79) 98 Room Air 06/08/17 18:31 90 17 100/69 (79) 98 Room Air 06/08/17 16:54 96 Room Air 06/08/17 16:50 97 18 106/64 (78) Room Air 06/08/17 16:49 18 06/08/17 16:20 98.1 72 17 117/67 (84) 97 Physical Exam PE: GENERAL: Pleasant elderly white male in no acute distress. HEENT: PERRLA, EOMI. No scleral icterus or conjunctival pallor. No lid lag or facial droop. CARDIOVASCULAR: Regular rate and rhythm. No obvious murmurs to auscultation. No chest tenderness to palpation. RESPIRATORY: No obvious rhonchi or wheezing. Clear to auscultation. Breath sounds equal bilaterally. GASTROINTESTINAL: Abdomen soft, non-tender, nondistended. BS normal. PEG Tube removed, mild erythema, no signs of infection. MUSCULOSKELETAL: Extremities without clubbing, cyanosis, or edema. No obvious deformities. NEUROLOGICAL: Awake, alert and oriented x4. No focal neurologic deficits. Moving both upper and lower extremities spontaneously. Laboratory Laboratory Tests Test 06/08/17 16:50 White Blood Count 9.1 Red Blood Count 4.65 Hemoglobin 13.8 Hematocrit 41.9 Mean Corpuscular Volume 90.1 Mean Corpuscular Hemoglobin 29.8 Mean Corpuscular Hemoglobin Concent 33.1 Red Cell Distribution Width 17.0 Platelet Count 229 Mean Platelet Volume 8.5 Neutrophils (%) (Auto) 71.2 Lymphocytes (%) (Auto) 21.9 Monocytes (%) (Auto) 5.7 Eosinophils (%) (Auto) 0.6 Basophils (%) (Auto) 0.6 Neutrophils # (Auto) 6.5 Lymphocytes # (Auto) 2.0 Monocytes # (Auto) 0.5 Eosinophils # (Auto) 0.1 Basophils # (Auto) 0.1 CBC Comment DIFF FINAL Differential Comment Prothrombin Time 9.9 Prothromb Time International Ratio 1.0 Activated Partial Thromboplast Time 26.1 Blood Urea Nitrogen 49 Creatinine 1.14 Random Glucose 90 Total Protein 7.7 Albumin 3.5 Calcium Level 9.4 Magnesium Level 2.2 Alkaline Phosphatase 80 Aspartate Amino Transf (AST/SGOT) 40 Alanine Aminotransferase (ALT/SGPT) 50 Total Bilirubin 0.3 Sodium Level 139 Potassium Level 5.6 Chloride Level 102 Carbon Dioxide Level 28.2 Anion Gap 9 Estimat Glomerular Filtration Rate 62 Lipase 201 Result Diagram: 06/08/17164906/08/171649 Caprini VTE Risk Assessment Caprini VTE Risk Assessment: No/Low Risk (score <= 1) Caprini Risk Assessment Model Point Value = 1 Point Value = 2 Point Value = 3 Point Value = 5 Age 41-60 Minor surgery BMI > 25 kg/m2 Swollen legs Varicose veins or History of unexplained or recurrent spontaneous Oral contraceptives or hormone replacement Sepsis (< 1 month) Serious lung disease, including pneumonia (< 1 month) Abnormal pulmonary function Acute myocardial infarction Congestive heart failure (< 1 month) History of inflammatory bowel disease Medical patient at bed rest Age 61-74 Arthroscopic surgery Major open surgery (> 45 min) Laparoscopic surgery (> 45 min) Malignancy Confined to bed (> 72 hours) Immobilizing plaster cast Central venous access Age >= 75 History of VTE Family history of VTE Factor V Leiden Prothrombin [id number] Lupus anticoagulant Anticardiolipin antibodies Elevated serum homocysteine Heparin-induced thrombocytopenia Other congenital or acquired thrombophilia Stroke (< 1 month) Elective arthroplasty Hip, pelvis, or leg fracture Acute spinal cord injury (< 1 month) Prophylaxis Regimen Total Risk Factor Score Risk Level Prophylaxis Regimen 0-1 Low Early ambulation 2 Moderate Order ONE of the following: *Sequential Compression Device (SCD) *Heparin 5000 units SQ BID 3-4 Higher Order ONE of the following medications: *Heparin 5000 units SQ TID *Enoxaparin/Lovenox 40 mg SQ daily (WT < 150 kg, CrCl > 30 mL/min) *Enoxaparin/Lovenox 30 mg SQ daily (WT < 150 kg, CrCl > 10-29 mL/min) *Enoxaparin/Lovenox 30 mg SQ BID (WT < 150 kg, CrCl > 30 mL/min) AND/OR *Sequential Compression Device (SCD) 5 or more Highest Order ONE of the following medications: *Heparin 5000 units SQ TID (Preferred with Epidurals) *Enoxaparin/Lovenox 40 mg SQ daily (WT < 150 kg, CrCl > 30 mL/min) *Enoxaparin/Lovenox 30 mg SQ daily (WT < 150 kg, CrCl > 10-29 mL/min) *Enoxaparin/Lovenox 30 mg SQ BID (WT < 150 kg, CrCl > 30 mL/min) AND *Sequential Compression Device (SCD) Assessment and Plan Problem List: (1) PEG tube malfunction ICD Code: K94.23 - Gastrostomy malfunction Status: Acute (2) Dehydration ICD Code: E86.0 - Dehydration (3) COPD (chronic obstructive pulmonary disease) ICD Code: J44.9 - Chronic obstructive pulmonary disease, unspecified (4) A-fib ICD Code: I48.91 - Unspecified atrial fibrillation Assessment and Plan A/P: 1. PEG Tube Malfunction: s/p PEG Tube Placement approx 1mo ago for recurrent aspiration, now w/ malfunctioning tube, referred to ER by Dr. Llanes, apparently PEG dislodged and not in stomach, s/p removal in office by Dr. Llanes. PEG to be replaced by her in am. NPO, IVF, Consult Dr. Llanes for intervention. CT Abd /Pelvis w/ no acute findings, tract in place but no PEG noted, images reviewed by me. 2. Dehydration: Unable to take PO, solely on tube feeds via PEG. BUN 49, previously 20 on 04/20/17, Creatinine increased to 1.14 from 0.91. IVF for hydration, repeat labs in am. 3. COPD: Chronic Respiratory Failure. Controlled. Resume home Advair, DuoNeb prn as needed. 4. A-fib: Chronic. HR 90-100's, unable to give home Diltiazem as unable to take PO/PEG malfunctioning. Will monitor, IV Lopressor if needed for HR >130' s. 5. DVT Prophylaxis: SCD/Teds 6. Social work for d/c planning as needed. 7. Case discussed w/ ER physician at length, labs/records/imaging reviewed by me. Rebekah Heller MD June 08, 2017 19:12
[2017-06-08] MEDS ORDERED: BISACODYL 10 MG SUPP RECTAL PRN (19:15)
[2017-06-08] MEDS ORDERED: ONDANSETRON HCL 4 MG/2 ML VIAL IVP PRN (19:15)
[2017-06-08] MEDS ORDERED: MAGNESIUM HYDROXIDE SUSP 30 ML CUP PO PRN (19:15)
[2017-06-08] MEDS ORDERED: MORPHINE SULFATE 2 MG/ML SYRINGE IV PUSH PRN (19:15)
[2017-06-08] MEDS ORDERED: RESP: ALBUTEROL 2.5 MG/IPRATROPIUM 0.5 MG NEB (PRN) NEB (19:15)
[2017-06-08] MEDS ORDERED: SODIUM CHLORIDE 0.9% FLUSH 10 ML FLUSH IV FLUSH PRN (19:15)
[2017-06-08] MEDS ORDERED: LACTULOSE SYRUP 20 GM/30 ML CUP PO PRN (19:15)
[2017-06-08] MEDS ORDERED: SENNOSIDES 8.6 MG TAB PO PRN (19:15)
[2017-06-08] MEDS: DOCUSATE SODIUM 50 MG/SENNA 8.6 MG TAB PO SCH (19:34)
[2017-06-08] MEDS: SODIUM CHLORIDE 0.9% FLUSH 10 ML FLUSH IV FLUSH SCH (19:34)
[2017-06-08] MEDS: SODIUM CHLOR 0.9% 1000 ML INJ 1,000 ML IV SCH (19:34)
[2017-06-08] MEDS: BUDESONIDE-FORMOTEROL 160/4.5 MCG INHALER INH SCH (20:07)
[2017-06-09 04:08] VITALS: BP 109/74; PULSE 95; RESP 18; TEMP 97.5; O2SAT 98
[2017-06-09] MEDS ORDERED: POVIDONE IODINE 5% (ANTISEPSIS KIT) 4 APPLICATIONS EACH NARE PRN (04:15)
[2017-06-09] MEDS ORDERED: SODIUM CHLORID 0.9% 500 ML IV PRN (04:15)
[2017-06-09] MEDS ORDERED: INSULIN HUMAN REGULAR 1,000 UNITS/10 ML VIAL SQ PRN (04:15)
[2017-06-09] MEDS ORDERED: LACTATED RINGER'S 1000 ML IV PRN (04:15)
[2017-06-09] MEDS ORDERED: METOPROLOL TARTRATE 25 MG TAB PO PRN (04:15)
[2017-06-09] MEDS ORDERED: CHLORHEXIDINE GLUCONATE 2 % 1 PACK (2 CLOTHS) TOPICAL PRN (04:15)
[2017-06-09] MEDS: SODIUM CHLOR 0.9% 1000 ML INJ 1,000 ML IV SCH ×2 (05:22→15:50)
[2017-06-09 07:57] LABS: AUTOMATED NEUTROPHIL # 3.5 TH/MM3 (1.8-7.7); BASOPHIL # 0.1 TH/MM3 (0-0.2); BASOPHIL % 0.8 % (0.0-2.0); EOSINOPHIL # 0.2 TH/MM3 (0-0.4); LYMPH % 26.9 % (9.0-44.0); LYMPHOCYTE # 1.7 TH/MM3 (1.0-4.8); MEAN CELL VOLUME 91.4 FL (80.0-100.0); MEAN CORPUSCULAR HEMOGLOBIN 30.3 PG (27.0-34.0); MEAN CORPUSCULAR HGB CONC 33.2 % (32.0-36.0); MEAN PLATELET VOLUME 8.5 FL (7.0-11.0); MONO % 12.2 % (0.0-8.0); MONOCYTE # 0.8 TH/MM3 (0-0.9); NEUT % 56.1 % (16.0-70.0); PLATELET COUNT 174 TH/MM3 (150-450); RED BLOOD COUNT 4.27 MIL/MM3 (4.50-5.90); RED CELL DISTRIBUTION WIDTH 16.9 % (11.6-17.2); WHITE BLOOD COUNT 6.2 TH/MM3 (4.0-11.0)
[2017-06-09 08:10] VITALS: BP 117/75; PULSE 96; RESP 18; TEMP 97.5; O2SAT 98
[2017-06-09 08:29] LABS: ALBUMIN 2.9 GM/DL (3.4-5.0); AST (GOT) 27 U/L (15-37); BLOOD UREA NITROGEN 32 MG/DL (7-18); CHLORIDE 105 MEQ/L (98-107); CREATININE 0.79 MG/DL (0.60-1.30); GLOMERULAR FILTRATION RATE 95 ML/MIN (>89); GLUCOSE,RANDOM 75 MG/DL (74-106); SODIUM (NA) 140 MEQ/L (136-145)
[2017-06-09 08:30] LABS: ALT (GPT) 36 U/L (12-78)
[2017-06-09 08:32] LABS: ALKALINE PHOSPHATASE 74 U/L (45-117); TOTAL BILIRUBIN ADULT 0.4 MG/DL (0.2-1.0); TOTAL PROTEIN 6.5 GM/DL (6.4-8.2)
[2017-06-09] MEDS: DOCUSATE SODIUM 50 MG/SENNA 8.6 MG TAB PO SCH ×2 (09:00→21:16)
[2017-06-09] MEDS: BUDESONIDE-FORMOTEROL 160/4.5 MCG INHALER INH SCH ×2 (09:00→21:16)
[2017-06-09] MEDS: SODIUM CHLORIDE 0.9% FLUSH 10 ML FLUSH IV FLUSH SCH ×2 (09:00→21:16)
--- NOTE | 2017-06-09 09:57 | PD.CONS ---
HPI History of Present Illness This is a 77 year old M known to our service with PMH significant for throat cancer S/P radiation treatment who requires feedings through a PEG tube due to risk for aspiration. Pt was seen in the office by Dr. Llanes yesterday and reported that his PEG tube has not been flushing and that he needs the tube to be changed. States has been flushing progressively slower of the past couple days. Denies any abdominal pain with flushes. Dr. Llanes discontinued PEG in the office and advised pt to come to the ER today for PEG replacement. Pt does not take anything by mouth. Small amount of drainage to previous PEG site, covered with clean and dry gauze. Pt received Cefazolin this AM. (Breanna Ruiz) PFSH Past Medical History PMH: A. fib, Throat CA, h/o Aspiration s/p PEG Tube and COPD Past Surgical History PAST SURGICAL HISTORY: Left Hip Pain, Left Finger Amputation EGD with PEG (Breanna Ruiz) Coded Allergies: Sulfa (Sulfonamide Antibiotics) (Unverified Allergy, Severe, Anaphylaxis, 06/08/17) Family History PAST FAMILY HISTORY: Reviewed. No h/o DM or CAD Social History PAST SOCIAL HISTORY: Positive for alcohol, h/o tobacco. Negative for drugs. (Breanna Ruiz) Review of Systems Gastrointestinal: COMPLAINS OF: Difficulty Swallowing, DENIES: Abdominal pain, Constipation, Diarrhea, Nausea, Vomiting, Swelling of Abdomen, Heartburn, Hematemesis (Breanna Ruiz) GI Exam Vitals I&O Vital Signs Date Time Temp Pulse Resp B/P (MAP) Pulse Ox O2 Delivery O2 Flow Rate FiO2 06/09/17 08:10 97.5 96 18 117/75 (89) 98 06/09/17 04:08 97.5 95 18 109/74 (86) 98 06/08/17 22:54 97.6 104 16 106/60 (75) 97 06/08/17 20:11 97.8 105 18 113/74 (87) 96 06/08/17 19:51 06/08/17 19:32 95 06/08/17 19:01 97.4 106 16 112/63 (79) 98 Room Air 06/08/17 18:31 90 17 100/69 (79) 98 Room Air 06/08/17 16:54 96 Room Air 06/08/17 16:50 97 18 106/64 (78) Room Air 06/08/17 16:49 18 06/08/17 16:20 98.1 72 17 117/67 (84) 97 I/O 06/08/17 06/08/17 06/08/17 06/09/17 06/09/17 06/09/17 07:00 15:00 23:00 07:00 15:00 23:00 Intake Total 500 ml Balance 500 ml Intake IV Total 500 ml Imaging Last Impressions Abdomen/Pelvis CT 06/08/17 0000 Signed Impressions: Service Date/Time: Thursday, June 08, 2017 18:24 - CONCLUSION: 1. No acute findings within the abdomen. There is a tract extending from the anterior stomach to the anterior abdominal wall but no actual peg tube is identified. 2. Severe basilar lung fibrosis. Left pleural calcifications. 3. Tiny hepatic and renal cysts on the left. Nonobstructing left renal calculus. 4. Diverticulosis and rectal constipation. 5. Severe coronary artery disease. Cardiomegaly. Salazar Everett MD Laboratory Test 06/08/17 16:50 06/09/17 07:00 White Blood Count 9.1 TH/MM3 6.2 TH/MM3 Red Blood Count 4.65 MIL/MM3 4.27 MIL/MM3 Hemoglobin 13.8 GM/DL 13.0 GM/DL Hematocrit 41.9 % 39.0 % Mean Corpuscular Volume 90.1 FL 91.4 FL Mean Corpuscular Hemoglobin 29.8 PG 30.3 PG Mean Corpuscular Hemoglobin Concent 33.1 % 33.2 % Red Cell Distribution Width 17.0 % 16.9 % Platelet Count 229 TH/MM3 174 TH/MM3 Mean Platelet Volume 8.5 FL 8.5 FL Neutrophils (%) (Auto) 71.2 % 56.1 % Lymphocytes (%) (Auto) 21.9 % 26.9 % Monocytes (%) (Auto) 5.7 % 12.2 % Eosinophils (%) (Auto) 0.6 % 4.0 % Basophils (%) (Auto) 0.6 % 0.8 % Neutrophils # (Auto) 6.5 TH/MM3 3.5 TH/MM3 Lymphocytes # (Auto) 2.0 TH/MM3 1.7 TH/MM3 Monocytes # (Auto) 0.5 TH/MM3 0.8 TH/MM3 Eosinophils # (Auto) 0.1 TH/MM3 0.2 TH/MM3 Basophils # (Auto) 0.1 TH/MM3 0.1 TH/MM3 CBC Comment DIFF FINAL DIFF FINAL Differential Comment Prothrombin Time 9.9 SEC Prothromb Time International Ratio 1.0 RATIO Activated Partial Thromboplast Time 26.1 SEC Blood Urea Nitrogen 49 MG/DL 32 MG/DL Creatinine 1.14 MG/DL 0.79 MG/DL Random Glucose 90 MG/DL 75 MG/DL Total Protein 7.7 GM/DL 6.5 GM/DL Albumin 3.5 GM/DL 2.9 GM/DL Calcium Level 9.4 MG/DL 9.0 MG/DL Magnesium Level 2.2 MG/DL Alkaline Phosphatase 80 U/L 74 U/L Aspartate Amino Transf (AST/SGOT) 40 U/L 27 U/L Alanine Aminotransferase (ALT/SGPT) 50 U/L 36 U/L Total Bilirubin 0.3 MG/DL 0.4 MG/DL Sodium Level 139 MEQ/L 140 MEQ/L Potassium Level 5.6 MEQ/L 4.6 MEQ/L Chloride Level 102 MEQ/L 105 MEQ/L Carbon Dioxide Level 28.2 MEQ/L 28.0 MEQ/L Anion Gap 9 MEQ/L 7 MEQ/L Estimat Glomerular Filtration Rate 62 ML/MIN 95 ML/MIN Lipase 201 U/L Physical Examination HEENT: Normocephalic; scar to right side of scalp CHEST: Even/unlabored CARDIAC: RRR ABDOMEN: Soft, nondistended, nontender; bowel sounds active, small amount of drainage from previous PEG site. EXTREMITIES: No clubbing, cyanosis, or edema. SKIN: Normal; no rash; no jaundice. DECISION UNIT RN: No focal deficits; alert and oriented times three. (Breanna Ruiz) Assessment and Plan Plan Assessment: - Malfunctioning PEG that was discontinued in GI office yesterday by Dr. Llanes. Pt reports was not flushing well, denies abdominal pain when he was flushing it. Small amount of drainage to previous PEG site. Pt was told to come to ER for PEG replacement. Indication for PEG: History of tonsil cancer S/P radiation and has PEG because of risk of aspiration. Denies taking anything by mouth Plan: EGD with PEG today Obtain consent Keep NPO Pt received Cefazolin this AM Further recommendations based on clinical course Pt has been seen and examined by myself and Dr. Llanes and this note is written on her behalf (Breanna Ruiz) Physician Comments seen, examined agree with above (Sara Llanes MD) Breanna Ruiz June 09, 2017 09:57 Sara Llanes MD June 09, 2017 14:19
[2017-06-09 11:42] VITALS: BP 129/93; PULSE 98; RESP 18; TEMP 97.6; O2SAT 96
[2017-06-09] MEDS ORDERED: PROPOFOL 200 MG/20 ML AMP IV ONE (12:00)
[2017-06-09] MEDS ORDERED: ESMOLOL HCL 100 MG/10 ML VIAL IV ONE (12:00)
[2017-06-09] MEDS ORDERED: ceFAZolin INJ 1,000 MG VIAL IV ONE (12:00)
[2017-06-09] MEDS ORDERED: LIDOCAINE HCL 1% PF 5 ML SYRINGE OTHER ONE (12:00)
--- NOTE | 2017-06-09 12:29 | HHI.PR ---
Subjective Remarks Follow-up for PEG malfunction. The patient is currently awaiting PEG replacement. He denies any abdominal pain, nausea, vomiting, or diarrhea. He is hoping to be discharged after PEG is replaced. He states at home he has been using Jevity 1.5 total 6 cans daily, and adding protein powder to this. He has no other medical complaints at this time. Objective Vitals Vital Signs Date Time Temp Pulse Resp B/P (MAP) Pulse Ox O2 Delivery O2 Flow Rate FiO2 06/09/17 11:42 97.6 98 18 129/93 (105) 96 06/09/17 08:10 97.5 96 18 117/75 (89) 98 06/09/17 04:08 97.5 95 18 109/74 (86) 98 06/08/17 22:54 97.6 104 16 106/60 (75) 97 06/08/17 20:11 97.8 105 18 113/74 (87) 96 06/08/17 19:51 06/08/17 19:32 95 06/08/17 19:01 97.4 106 16 112/63 (79) 98 Room Air 06/08/17 18:31 90 17 100/69 (79) 98 Room Air 06/08/17 16:54 96 Room Air 06/08/17 16:50 97 18 106/64 (78) Room Air 06/08/17 16:49 18 06/08/17 16:20 98.1 72 17 117/67 (84) 97 I/O 06/08/17 06/08/17 06/08/17 06/09/17 06/09/17 06/09/17 07:00 15:00 23:00 07:00 15:00 23:00 Intake Total 500 ml Balance 500 ml Intake IV Total 500 ml # Voids 3 Result Diagram: 06/09/17 0700 06/09/17 0700 Imaging Last Impressions Abdomen/Pelvis CT 06/08/17 0000 Signed Impressions: Service Date/Time: Thursday, June 08, 2017 18:24 - CONCLUSION: 1. No acute findings within the abdomen. There is a tract extending from the anterior stomach to the anterior abdominal wall but no actual peg tube is identified. 2. Severe basilar lung fibrosis. Left pleural calcifications. 3. Tiny hepatic and renal cysts on the left. Nonobstructing left renal calculus. 4. Diverticulosis and rectal constipation. 5. Severe coronary artery disease. Cardiomegaly. Salazar Everett MD Objective Remarks GENERAL: Well-nourished, well-developed pleasant elderly male patient in NAD. SKIN: Warm and dry. No rash. HEENT: Normocephalic. Atraumatic. Mucous membranes pink and moist. CARDIOVASCULAR: Regular rate and rhythm. No murmur appreciated. RESPIRATORY: No accessory muscle use. Clear to auscultation. Breath sounds equal bilaterally. GASTROINTESTINAL: Abdomen soft, non-tender, nondistended. Normoactive bowel sounds x4. Scant drainage from prior PEG site. MUSCULOSKELETAL: No obvious deformities. Extremities without clubbing, cyanosis , or edema. NEUROLOGICAL: Awake and alert. No obvious cranial nerve deficits. Motor grossly within normal limits. Normal speech. PSYCHIATRIC: Appropriate mood and affect; insight and judgment normal. Medications and IVs Current Medications Medications (Trade) Dose Ordered Sig/Zoya Route Start Time Stop Time Status Last Admin Cefazolin Sodium 1000 mg/Sodium Chloride 100 ml @ 200 mls/hr Q24H IV 06/08/17 20:00 06/08/17 19:33 Sodium Chloride 1,000 ml @ 100 mls/hr Q10H IV 06/08/17 19:09 06/09/17 05:22 (NS Flush) 2 ml UNSCH PRN IV FLUSH 06/08/17 19:15 (NS Flush) 2 ml BID IV FLUSH 06/08/17 21:00 (Zofran Inj) 4 mg Q6H PRN IVP 06/08/17 19:15 (Morphine Inj) 1 mg Q3H PRN IV PUSH 06/08/17 19:15 (Morphine Inj) 2 mg Q3H PRN IV PUSH 06/08/17 19:15 (Ramonita-Colace) 1 tab BID PO 06/08/17 21:00 (Milk Of Magnesia Liq) 30 ml Q12H PRN PO 06/08/17 19:15 (Senokot) 17.2 mg Q12H PRN PO 06/08/17 19:15 (Dulcolax Supp) 10 mg DAILY PRN RECTAL 06/08/17 19:15 (Lactulose Liq) 30 ml DAILY PRN PO 06/08/17 19:15 (Duoneb Neb) 1 ampule Q4HR NEB PRN NEB 06/08/17 19:15 (Symbicort 160-4.5 Mcg Inh) 2 puff BID INH 06/08/17 21:00 Lactated Ringer's 1,000 ml @ 30 mls/hr Q24H PRN IV 06/09/17 04:15 06/12/17 04:14 Sodium Chloride 500 ml @ 30 mls/hr [id number] PRN IV 06/09/17 04:15 06/12/17 04:14 (Lopressor) 25 mg RETIREMENT ACTUARY PRN PO 06/09/17 04:15 06/12/17 04:14 (Betadine 5% Antisepsis Kit) 1 applic RETIREMENT ACTUARY PRN EACH NARE 06/09/17 04:15 06/12/17 04:14 (Chlorhexidine 2% Cloth) 3 pack RETIREMENT ACTUARY PRN TOPICAL 06/09/17 04:15 06/12/17 04:14 (NovoLIN R INJ) See Protocol Table ... RETIREMENT ACTUARY PRN SQ 06/09/17 04:15 06/12/17 04:14 A/P Problem List: (1) PEG tube malfunction ICD Code: K94.23 - Gastrostomy malfunction Status: Acute (2) Dehydration ICD Code: E86.0 - Dehydration (3) COPD (chronic obstructive pulmonary disease) ICD Code: J44.9 - Chronic obstructive pulmonary disease, unspecified (4) A-fib ICD Code: I48.91 - Unspecified atrial fibrillation Assessment and Plan 77-year-old male with a PMH of A. fib, Throat CA, h/o Aspiration s/p PEG Tube and COPD who was referred to the ER by his GI doc, Dr. Llanes, for admission due to PEG Malfunction. PEG Tube Malfunction: s/p PEG Tube Placement approx 1mo ago for recurrent aspiration, now w/ malfunctioning tube, referred to ER by Dr. Llanes, apparently PEG dislodged and not in stomach, s/p removal in office by Dr. Llanes. PEG to be replaced. NPO, IVF, Consult Dr. Llanes for intervention. CT Abd/Pelvis w/ no acute findings, tract in place but no PEG noted. Dehydration: Unable to take PO, solely on tube feeds via PEG. BUN 49, previously 20 on 04/20/17, Creatinine increased to 1.14 from 0.91. IVF for hydration, repeat labs in am. COPD: Chronic Respiratory Failure. Controlled. Resume home Advair, DuoNeb prn as needed. A-fib: Chronic. HR 90-100's, unable to give home Diltiazem as unable to take PO/PEG malfunctioning. Will monitor, IV Lopressor if needed for HR >130's. DVT Prophylaxis: SCD/Teds Discharge Planning Will plan to discharge after PEG placed if cleared by GI. Discharge patient to home Condition on discharge: Stable Tube Feeds as tolerated Ad Bertha activity Rx written: none Follow-up with primary care physician and gastroenterology Jamila Chaney PA-C June 09, 2017 12:29 pm
--- NOTE | 2017-06-09 14:15 | EKG ---
Date Performed: 06/09/2017 Time Performed: 05:46:53 PTAGE: 77 years EKG: ATRIAL FIBRILLATION WITH ABERRANT CONDUCTION OR VENTRICULAR PREMATURE COMPLEXES MARKED RIGH T AXIS DEVIATION INCOMPLETE RIGHT BUNDLE BRANCH BLOCK When compared to previous tracing, ventricular response to atrial Fibrillation is slower. ABNORMAL ECG PREVIOUS TRACING : 04/24/2017 10.39.53 DOCTOR: Shon Bowie Interpretating Date/Time 06/09/2017 14:14:15
--- NOTE | 2017-06-09 14:19 | HHI.DCPOC ---
Discharge Care Plan Diagnosis: (1) PEG tube malfunction Goals to Promote Your Health * To prevent worsening of your condition and complications * To maintain your health at the optimal level Directions to Meet Your Goals Take your medications as prescribed Follow your dietary instruction Follow activity as directed Keep your appointments as scheduled Take your immunizations and boosters as scheduled If your symptoms worsen call your PCP, if no PCP go to Urgent Care Center or Emergency Room Smoking is Dangerous to Your Health. Avoid second hand smoke Call the 24-hour hour crisis hotline for domestic abuse at Jamila Chaney PA-C June 09, 2017 14:19
--- NOTE | 2017-06-09 14:54 | GIPROC ---
[facility] [address] [facility] [address] EGD WITH PEG PROCEDURE REPORT EXAM DATE: 06/09/2017 PATIENT NAME: Toy Pickering MR#: [id number] BIRTHDATE: 1940 ATTENDING: Sara Llanes MD ORDER #: [id number] MANAGEMENT INSTRUCTOR: Negar Black STATUS: inpatient INDICATIONS: The patient is a 77 yr old male here for an EGD with PEG due to weight loss and aspiration dislodged old peg PROCEDURE PERFORMED: EGD with PEG placement MEDICATIONS: None and Per Anesthesia. TOPICAL ANESTHETIC: none CONSENT: The patient understands the risks and benefits of the procedure and understands that these risks include, but are not limited to: sedation, allergic reaction, infection, perforation and/or bleeding. Alternative means of evaluation and treatment include, among others: physical exam, x-rays, and/or surgical intervention. The patient elects to proceed with this endoscopic procedure. medical equipment was checked for proper function. Hand hygiene and appropriate measures for infection prevention was taken. After the risks, benefits and alternatives of the procedure were thoroughly explained, Informed consent was verified, confirmed and timeout was successfully executed by the treatment team. The patient was anesthetized with topical anesthesia and the Pentax [id number] endoscope was introduced through the mouth and advanced to the second portion of the duodenum. The instrument was slowly withdrawn as the mucosa was fully examined. Inflammation was found at old peg site old peg site could not be used , mild , new site used The stomach was then inflated with air, and by a combination of transillumination and manual palpation, the site for the gastrostomy tube placement was selected and marked on the anterior abdominal wall. The skin of the anterior abdomen was surgically prepped and draped with sterile towels. Utilizing strict sterile technique, the selected site was then anesthetized with 1% xylocaine by injection into the skin and subcutaneous tissue. A 1 cm incision was made through the skin and subcutaneous tissue, and the needle/cannula assembly was then passed through the abdominal wall and through the anterior wall of the stomach, maintaining visualization with the endoscope. A snare device previously placed through the instrument channel was then opened and placed around the cannula, the needle was removed, and the insertion wire was passed through the cannula and into the stomach lumen. The snare was then loosened from the cannula, and repositioned to snare the insertion wire. The snare was then pulled up to the endoscope distal tip, and the scope was then withdrawn bringing with it the snare and insertion wire. The insertion wire was then released from the snare, and then loop-attached to the gastrostomy tube. Using the "pull technique", the G-tube was then pulled into place by traction on the insertion wire at the abdominal wall end. The G-tube insertion site was then cleansed once again, and the external bolster was placed over the tube to secure it to the abdominal wall. A sterile dressing was then applied, and the procedure terminated. a hiatal hernia The gastroscope was then slowly withdrawn and removed. ADVERSE EVENT: There were no complications. IMPRESSIONS: 1. Inflammation was found 2. A hiatal hernia RECOMMENDATIONS: 1. Anti-reflux regimen 2. Begin feeding tomorrow 3. Continue PPI 4. keep for observation today, tachicardic during procedure IVF iv antibiotics if stable can dc in am ok to restart anticoagulation in am fu office continue po antibiotics as prescribed once discharged REPEAT EXAM: procedure as needed Sara Llanes MD eSigned: Sara Llanes MD 06/09/2017 2:54 PM cc: PATIENT NAME: Toy Pickering MR#: [id number]
[2017-06-09] MEDS ORDERED: DO NOT ADM ANY ANTICOAGULANT DRUGS PRN (15:30)
[2017-06-09 16:02] VITALS: BP 117/82; PULSE 116; RESP 18; TEMP 97.6; O2SAT 96
[2017-06-09] MEDS: MORPHINE SULFATE 2 MG/ML SYRINGE IV PUSH PRN ×2 (18:29→21:20)
[2017-06-09 20:28] VITALS: BP 134/78; PULSE 110; RESP 18; TEMP 98.4; O2SAT 96
[2017-06-09] MEDS: MUPIROCIN 2% CREAM 15 GM TOPICAL SCH ×2 (21:16→21:33)
[2017-06-10 00:12] VITALS: BP 118/76; PULSE 92; RESP 18; TEMP 97.5; O2SAT 95
[2017-06-10] MEDS: MORPHINE SULFATE 2 MG/ML SYRINGE IV PUSH PRN (00:51)
[2017-06-10] MEDS: SODIUM CHLOR 0.9% 1000 ML INJ 1,000 ML IV SCH (00:52)
[2017-06-10 04:30] VITALS: BP 110/67; PULSE 98; RESP 18; TEMP 96.7; O2SAT 97
[2017-06-10] MEDS: SODIUM CHLORIDE 0.9% FLUSH 10 ML FLUSH IV FLUSH SCH (09:00)
[2017-06-10] MEDS: DOCUSATE SODIUM 50 MG/SENNA 8.6 MG TAB PO SCH (09:00)
--- NOTE | 2017-06-10 09:12 | HHI.PR ---
Subjective Remarks Follow-up for PEG tube dislodgment. The patient had his PEG tube replaced yesterday. Restarted tube feeds this morning, patient tolerated well. He denies any abdominal pain, nausea/vomiting, or diarrhea. He wants to go home. Objective Vitals Vital Signs Date Time Temp Pulse Resp B/P (MAP) Pulse Ox O2 Delivery O2 Flow Rate FiO2 06/10/17 04:30 96.7 98 18 110/67 (81) 97 06/10/17 00:56 13 06/10/17 00:12 97.5 92 18 118/76 (90) 95 06/09/17 20:28 98.4 110 18 134/78 (96) 96 06/09/17 16:02 97.6 116 18 117/82 (94) 96 06/09/17 15:15 103 12 107/77 (87) 100 Room Air 06/09/17 15:00 109 17 103/79 (87) 100 Nasal Cannula 3 06/09/17 14:51 97.7 102 17 111/80 (90) 100 Nasal Cannula 3 06/09/17 11:42 97.6 98 18 129/93 (105) 96 I/O 06/09/17 06/09/17 06/09/17 06/10/17 06/10/17 06/10/17 06:59 14:59 22:59 06:59 14:59 22:59 Intake Total 400 ml Output Total 1 ml Balance 399 ml Other 400 ml Output Estimated Blood Loss 1 ml # Voids 3 3 Result Diagram: 06/09/17 0700 06/09/17 0700 Imaging Last Impressions Abdomen/Pelvis CT 06/08/17 0000 Signed Impressions: Service Date/Time: Thursday, June 08, 2017 18:24 - CONCLUSION: 1. No acute findings within the abdomen. There is a tract extending from the anterior stomach to the anterior abdominal wall but no actual peg tube is identified. 2. Severe basilar lung fibrosis. Left pleural calcifications. 3. Tiny hepatic and renal cysts on the left. Nonobstructing left renal calculus. 4. Diverticulosis and rectal constipation. 5. Severe coronary artery disease. Cardiomegaly. Salazar Everett MD Objective Remarks GENERAL: Well-nourished, well-developed pleasant elderly male patient in [facility]. SKIN: Warm and dry. No rash. HEENT: Normocephalic. Atraumatic. Mucous membranes pink and moist. CARDIOVASCULAR: Regular rate and rhythm. No murmur appreciated. RESPIRATORY: No accessory muscle use. Clear to auscultation. Breath sounds equal bilaterally. GASTROINTESTINAL: Abdomen soft, non-tender, nondistended. Normoactive bowel sounds x4. PEG at left mid abdomen, no surrounding erythema/edema/drainage. MUSCULOSKELETAL: No obvious deformities. Extremities without clubbing, cyanosis , or edema. NEUROLOGICAL: Awake and alert. No obvious cranial nerve deficits. Motor grossly within normal limits. Normal speech. PSYCHIATRIC: Appropriate mood and affect; insight and judgment normal. Procedures 06/09/17 - EGD with PEG tube placement A/P Problem List: (1) PEG tube malfunction ICD Code: K94.23 - Gastrostomy malfunction Status: Acute (2) Dehydration ICD Code: E86.0 - Dehydration (3) COPD (chronic obstructive pulmonary disease) ICD Code: J44.9 - Chronic obstructive pulmonary disease, unspecified (4) A-fib ICD Code: I48.91 - Unspecified atrial fibrillation Assessment and Plan 77-year-old male with a PMH of A. fib, Throat CA, h/o Aspiration s/p PEG Tube and COPD who was referred to the ER by his GI doc, Dr. Llanes, for admission due to PEG Malfunction. PEG Tube Malfunction: s/p PEG Tube Placement approx 1mo ago for recurrent aspiration, now w/ malfunctioning tube, referred to ER by Dr. Llanes, apparently PEG dislodged and not in stomach. CT Abd/Pelvis w/ no acute findings, tract in place but no PEG noted. Kept NPO, give IVF. GI Consulted, Dr. Llanes performed EGD with PEG placement on 06/09. Restarted tube feeds, patient tolerated well, cleared for discharge by GI. Dehydration: Unable to take PO, solely on tube feeds via PEG. BUN 49, previously 20 on 04/20/17, Creatinine increased to 1.14 from 0.91. Given IVF for hydration, repeat labs show improvement with Cr 0.79. COPD: Chronic Respiratory Failure. Controlled. Resume home Advair, DuoNeb prn as needed. A-fib: Chronic. HR 90-100's, unable to give home Diltiazem as unable to take PO/PEG malfunctioning. Will monitor, IV Lopressor if needed for HR >130's. DVT Prophylaxis: SCD/Teds Discharge Planning Discharge patient to home Condition on discharge: Stable Tube Feeds as tolerated Ad Bertha activity Rx written: none Follow-up with primary care physician and gastroenterology Jamila Chaney PA-C June 10, 2017 9:12 am
[2017-06-10] MEDS ORDERED: DILTIAZEM-CD 240 MG CAP ER PO SCH (09:15)
--- NOTE | 2017-06-10 09:31 | HHI.GIFU ---
Subjective Remarks Pt resting in bed, anxious to go home Denies any abdominal pain PEG tube site clean and dry, no active bleeding (Breanna Ruiz) Objective Vitals I&O Vital Signs Date Time Temp Pulse Resp B/P (MAP) Pulse Ox O2 Delivery O2 Flow Rate FiO2 06/10/17 04:30 96.7 98 18 110/67 (81) 97 06/10/17 00:56 13 06/10/17 00:12 97.5 92 18 118/76 (90) 95 06/09/17 20:28 98.4 110 18 134/78 (96) 96 06/09/17 16:02 97.6 116 18 117/82 (94) 96 06/09/17 15:15 103 12 107/77 (87) 100 Room Air 06/09/17 15:00 109 17 103/79 (87) 100 Nasal Cannula 3 06/09/17 14:51 97.7 102 17 111/80 (90) 100 Nasal Cannula 3 06/09/17 11:42 97.6 98 18 129/93 (105) 96 I/O 06/09/17 06/09/17 06/09/17 06/10/17 06/10/17 06/10/17 07:00 15:00 23:00 07:00 15:00 23:00 Intake Total 400 ml Output Total 1 ml Balance 399 ml Other 400 ml Output Estimated Blood Loss 1 ml # Voids 3 3 Imaging Last Impressions Abdomen/Pelvis CT 06/08/17 0000 Signed Impressions: Service Date/Time: Thursday, June 08, 2017 18:24 - CONCLUSION: 1. No acute findings within the abdomen. There is a tract extending from the anterior stomach to the anterior abdominal wall but no actual peg tube is identified. 2. Severe basilar lung fibrosis. Left pleural calcifications. 3. Tiny hepatic and renal cysts on the left. Nonobstructing left renal calculus. 4. Diverticulosis and rectal constipation. 5. Severe coronary artery disease. Cardiomegaly. Salazar Everett MD Physical Exam HEENT: Normocephalic; atraumatic CHEST: Even/unlabored CARDIAC: Irregularly irregular ABDOMEN: Soft, nondistended, nontender; bowel sounds active. PEG tube site clean and dry, no active bleeding EXTREMITIES: No clubbing, cyanosis, or edema. SKIN: Normal; no rash; no jaundice. [employer]: No focal deficits; alert and oriented times three. (Breanna Ruiz) Assessment and Plan Plan Assessment: - Malfunctioning PEG that was discontinued in GI office yesterday by Dr. Llanes. Pt reports was not flushing well, denies abdominal pain when he was flushing it. Small amount of drainage to previous PEG site. Pt was told to come to ER for PEG replacement. Indication for PEG: History of tonsil cancer S/P radiation and has PEG because of risk of aspiration. Denies taking anything by mouth (5/) S/P EGD with PEG --> Inflammation was found. Hiatal hernia. PEG tube site clean and dry with no active bleeding or drainage. Pt is anxious about going home. Nutrition not available on the weekend, pt does not want to wait and would like to go home. States will follow up with someone outpatient to discuss weight gain options. Plan: OK to start feedings DC home on Keflex Protonix OK to restart anticoagulation Have pt follow up with GI in office Pt has been seen and examined by myself and Dr. Llanes and this note is written on her behalf (Breanna Ruiz) Breanna Ruiz June 10, 2017 09:31 Sara Llanes MD June 10, 2017 13:55
== END 2017-06-10 10:55 | disposition home or self-care (01) ==
LOC: NEPC 16:16 → NEDA 19:03 → NEPHCDU 19:50
PROVIDERS: ADMIT Hospitalist; ATTEND Hospitalist
DX: K94.23 Gastrostomy malfunction (principal); Z79.01 Long term (current) use of anticoagulants; I48.2 Chronic atrial fibrillation; Z85.818 Personal history of malignant neoplasm of other sites of lip, oral cavity, and pharynx; J44.9 Chronic obstructive pulmonary disease, unspecified; K21.9 Gastro-esophageal reflux disease without esophagitis; M10.9 Gout, unspecified; Z87.891 Personal history of nicotine dependence; Z79.899 Other long term (current) drug therapy; E86.0 Dehydration; J96.10 Chronic respiratory failure, unspecified whether with hypoxia or hypercapnia; Z92.3 Personal history of irradiation; J84.10 Pulmonary fibrosis, unspecified; J94.8 Other specified pleural conditions; N28.1 Cyst of kidney, acquired; N20.0 Calculus of kidney; K57.90 Diverticulosis of intestine, part unspecified, without perforation or abscess without bleeding; I25.10 Atherosclerotic heart disease of native coronary artery without angina pectoris; I51.7 Cardiomegaly; I45.10 Unspecified right bundle-branch block; K44.9 Diaphragmatic hernia without obstruction or gangrene
CPT/HCPCS: 00731; 43246; 74177; 80053; 83690; 83735; 85025; 85610; 85730; 93005; 96361; 96365; 96375; 96376; 99285; G0378; J0690; J2270; J7030; J7040; Q9967